=== PATIENT | female | born 1935 | race Caucasian/White ===

== ENCOUNTER 2016-08-17 08:57 | Emergency (ER) | payer MEDICARE, BC ==
[~2016-08-17] VITALS: Ht 162.5 cm; Wt 78.0 kg
[~2016-08-17 08:57] MED LIST: ALPHAGAN-P 0.2%5 ML OPH; ANTIVERT/2525 MG PO; ANTIVERT25 MG PO; ASPIR-LOW81 MG PO; ATENOLOL25 MG PO; ATENOLOL50 M1 PO; AUGMENTIN 875 M1 TAB PO; B-121000 MCG PO; BETIMOL 10 ML10 M1 OPH; BETIMOL5 M1 OP; CIPROFLOXACIN500 MG PO; CLARITIN10 MG PO; CLONIDINE0.1 MG PO; CO Q-1010 MG PO; CORICIDIN 325 M1 TAB PO; DARVOCET N 1001 TAB PO; DIFLUCAN150 MG PO; DIFLUCAN200 MG PO; HYDRALAZINE HYD50 MG PO; LEVOFLOXACIN500 MG PO; LISINOPRIL10 M1 PO; LISINOPRIL20 MG PO; LISINOPRIL40 MG PO; LOPRESSOR25 MG PO; LOSARTAN POTASS25 M1 PO; LUMIGAN 2.5 ML2.5 ML OPH; LUTEIN20 MG PO; MACROBID100 M1 PO; Nizoral 2%15 GM PO; PRAVASTATIN SOD20 MG PO; PREDNISONE10 MG PO; PRESERVISION1 SGL PO; PROVENTIL0.09 MG/AC IH; VENTOLIN H0.09 MG/AC INH; VISION1 TAB PO; XALATAN 0.005%2.5 ML OPH; ZITHROMAX Z PA250 MG PO; ZOFRAN ODT4 MG SL
[2016-08-17 09:10] VITALS: BP 137/67
[2016-08-17 09:43] LABS: BASO # 0.1 10*3/uL (0.0-0.1); BASO % 0.7 % (0.0-1.0); EOS # 0.2 10*3/uL (0.0-0.4); EOS % 2.7 % (1.0-4.0); HEMATOCRIT 47.8 % (37.0-47.0); HEMOGLOBIN 15.5 g/dl (12.0-16.0); LYMPH # 1.2 10*3/uL (1.3-4.4); LYMPH % 16.1 % (27.0-41.0); MEAN CELL VOLUME 98.8 fl (81.0-99.0); MEAN CORPUSCULAR HGB CONC 32.4 g/dl (33.0-37.0); MEAN PLATELET VOLUME 10.8 fl (9.6-12.3); MONO # 0.5 10*3/uL (0.1-1.0); MONO % 6.2 % (3.0-9.0); NEUT # 5.7 10*3/uL (2.3-7.9); PLATELET COUNT AUTOMATED 184 10*3/uL (130-400); RED BLOOD COUNT 4.84 10*6/uL (4.10-5.10); RED CELL DISTRI WIDTH 13.2 % (0-14.5); WHITE BLOOD COUNT 7.7 10*3/uL (4.8-10.8)
[2016-08-17 09:51] LABS: PROTHROMBIN TIME 10.3 SECONDS (9.0-12.4)
[2016-08-17 09:58] LABS: ALBUMIN 3.6 gm/dl (3.1-4.5); ALKALINE PHOSPHATASE 97 U/L (45-117); BILIRUBIN, TOTAL 0.5 mg/dl (0.2-1.0); BUN 22 mg/dl (7-24); C-REACTIVE PROTEIN 0.88 MG/DL (0-0.3); CARBON DIOXIDE 29 mmol/L (21-32); CHLORIDE 104 mmol/L (98-107); CKMB 0.7 ng/ml (0.5-3.6); CPK 38 U/L (26-192); EST GLOM FILT AFRICAN AMERICAN > 60 ml/min; GLUCOSE 108 mg/dL (65-99); MAGNESIUM 2.3 mg/dL (1.5-2.1); POTASSIUM 4.4 mmol/L (3.5-5.1); SGOT/AST 13 IU/L (3-35); SGPT/ALT 14 U/L (12-78); SODIUM 140 mmol/L (136-145); TOTAL PROTEIN 7.7 gm/dL (6.4-8.2); TROPONIN I < 0.015 ng/ml (<0.045)
== END 2016-08-17 10:53 | disposition home or self-care (01) ==
LOC: ED 08:57
PROVIDERS: Emergency Medicine
DX: R00.1 Bradycardia, unspecified (principal); R60.9 Edema, unspecified; F17.200 Nicotine dependence, unspecified, uncomplicated; Z79.82 Long term (current) use of aspirin

== ENCOUNTER → 2016-11-06 | Outpatient (CLI) | payer MEDICARE, BC | END | disposition home or self-care (01) | LOC: MAMMO 12:29 | DX: Z12.31 Encounter for screening mammogram for malignant neoplasm of breast (principal) ==

== ENCOUNTER → 2017-04-26 | Outpatient (CLI) | payer MEDICARE, BC | END | disposition home or self-care (01) | LOC: RAD 10:29 | DX: Z13.820 Encounter for screening for osteoporosis (principal); M81.0 Age-related osteoporosis without current pathological fracture; N95.9 Unspecified menopausal and perimenopausal disorder ==

== ENCOUNTER 2017-07-18 11:28 | Emergency (ER) | payer MEDICARE, BC ==
[~2017-07-18] VITALS: Ht 162.5 cm; Wt 82.6 kg
[2017-07-18 11:33] VITALS: BP 120/53
[2017-07-18 11:55] LABS: BILIRUBIN NEGATIVE (NEGATIVE); BLOOD NEGATIVE (NEGATIVE); CLARITY CLEAR (CLEAR); COLOR YELLOW (YELLOW); GLUCOSE NEGATIVE (NEGATIVE); KETONE NEGATIVE (NEGATIVE); LEUKO ESTERASE NEGATIVE (NEGATIVE); NITRITE NEGATIVE (NEGATIVE); SPECIFIC GRAVITY <= 1.005 (1.005-1.030); UROBILINOGEN 0.2 E.U./dl (0.2-1.0)
== END 2017-07-18 12:23 | disposition home or self-care (01) ==
LOC: ED 11:28
PROVIDERS: Emergency Medicine
DX: M54.5 Low back pain (principal); I10 Essential (primary) hypertension; R06.02 Shortness of breath; Z79.82 Long term (current) use of aspirin

== ENCOUNTER 2018-10-05 10:34 | Emergency (ER) | payer MEDICARE, OTHER ==
[~2018-10-05] VITALS: Ht 162.5 cm; Wt 83.5 kg
[~2018-10-05 10:34] MED LIST changes: +ERGOCALCIFEROL1 GM PO; +LASIX20 MG PO; +Meclizine25 MG PO; +NORVASC10 MG PO; +PREDNISONE50 MG PO; +ZANAFLEX2 M1 PO
[2018-10-05 15:03] VITALS: BP 140/58
== END 2018-10-05 16:08 | disposition home or self-care (01) ==
LOC: ED 10:34
DX: I10 Essential (primary) hypertension (principal); H53.8 Other visual disturbances; F17.200 Nicotine dependence, unspecified, uncomplicated; Z88.1 Allergy status to other antibiotic agents; Z79.899 Other long term (current) drug therapy; Z79.82 Long term (current) use of aspirin

== ENCOUNTER 2018-10-07 13:56 | Inpatient (IN) | payer MEDICARE, OTHER ==
[~2018-10-07] VITALS: Ht 162.6 cm; Wt 83.5 kg
[2018-10-07] VITALS (13 sets, daily range): BP systolic 108–221; BP diastolic 45–116
--- NOTE | ~2018-10-07 | EKG ---
[place], [place] ELECTROCARDIOGRAM REPORT NAME: ZAFAR FORMAN UNIT #: [id number] ROOM: 505 DOCTOR: RAJ DRAFT REPORT BIRTHDATE: [address] [facility] Test Date: 2018-10-07 Test Time: 15:09:20 Pat Name: ZAFAR FORMAN Department: Room: 505 Gender: F Elevator Repairer Apprentice: : 1935 Requested By: ETELVINA LAL PA-C Order Number: [id number] Reading MD: Aurelia Pollack Measurements Intervals [place] Rate: 61 P: -20 IA: 208 QRS: -34 QRSD: 99 T: 75 QT: 444 QTc: 448 Interpretive Statements Sinus rhythm Left axis deviation Abnormal R-wave progression, late transition Borderline repolarization abnormality Compared to ECG 08/10/2018 14:55:02 Possible ischemia no longer present Electronically Signed On 10-09-2018 9:44:05 PDT by Aurelia Pollack CM:EKGRPT:ELECTROCARDIOGRAM REPORT [id number] ETELVINA LAL PA-C EPIPHANY DRAFT REPORT ETELVINA LAL PA-C
--- NOTE | 2018-10-07 14:32 | NUR ---
MANUAL B/P RIGHT ARM IS 150/82. I SPOKE WITH PA. LAL AND THE CATAPRESS IS BEING HELD AT THIS TIME
[2018-10-07 15:22] LABS: BASO # 0.1 10*3/uL (0.0-0.1); BASO % 0.6 % (0.0-1.0); EOS # 0.5 10*3/uL (0.0-0.4); EOS % 5.4 % (1.0-4.0); HEMATOCRIT 48.6 % (37.0-47.0); HEMOGLOBIN 15.4 g/dl (12.0-16.0); LYMPH # 1.5 10*3/uL (1.3-4.4); LYMPH % 18.1 % (27.0-41.0); MEAN CELL VOLUME 100.4 fl (81.0-99.0); MEAN CORPUSCULAR HGB 31.8 pg (27.0-31.0); MEAN CORPUSCULAR HGB CONC 31.7 g/dl (33.0-37.0); MEAN PLATELET VOLUME 10.8 fl (9.6-12.3); MONO # 0.6 10*3/uL (0.1-1.0); MONO % 6.7 % (3.0-9.0); NEUT # 5.8 10*3/uL (2.3-7.9); NEUT % 68.8 % (47.0-73.0); PLATELET COUNT AUTOMATED 154 10*3/uL (130-400); RED BLOOD COUNT 4.84 10*6/uL (4.10-5.10); RED CELL DISTRI WIDTH 13.1 % (0-14.5); WHITE BLOOD COUNT 8.4 10*3/uL (4.8-10.8)
[2018-10-07 15:39] LABS: ALBUMIN 3.5 gm/dl (3.1-4.5); ALKALINE PHOSPHATASE 104 U/L (45-117); BUN 22 mg/dl (7-24); CHLORIDE 103 mmol/L (98-107); CREATININE 1.14 mg/dL (0.55-1.02); POTASSIUM 4.2 mmol/L (3.5-5.1); SGOT/AST 14 IU/L (3-35); SGPT/ALT 16 U/L (12-78); SODIUM 139 mmol/L (136-145); TOTAL PROTEIN 7.4 gm/dL (6.4-8.2)
[2018-10-07 15:43] LABS: TROPONIN I < 0.015 ng/ml (<0.045)
[2018-10-07 15:52] LABS: INTERNATIONAL NORM RATIO 0.9 (2.0-3.5)
[2018-10-07 16:49] LABS: BILIRUBIN NEGATIVE (NEGATIVE); BLOOD NEGATIVE (NEGATIVE); CLARITY CLEAR (CLEAR); COLOR YELLOW (YELLOW); GLUCOSE NEGATIVE (NEGATIVE); KETONE NEGATIVE (NEGATIVE); LEUKO ESTERASE NEGATIVE (NEGATIVE); NITRITE NEGATIVE (NEGATIVE); PH 5.5 (5.0-9.0); SPECIFIC GRAVITY <= 1.005 (1.005-1.030); UROBILINOGEN 0.2 E.U./dl (0.2-1.0)
[2018-10-07 17:00] LABS: EPITHELIAL CELLS 0-2; WBC 0-2 wbc/hpf (0-5)
--- NOTE | 2018-10-07 17:22 | NUR ---
A DINNER TRAY WAS ORDERED FOR THE PATIENT
[2018-10-07] MEDS ORDERED: AMLODIPINE BESY10 MG PO (17:48)
--- NOTE | 2018-10-07 19:18 | NUR ---
THE RECIEVING NURSE IS IN REPORT AND CAN NOT TAKE REPORT FROM ME AT THIS TIME
--- NOTE | 2018-10-07 20:00 | NUR ---
A 83, admitted to , under the services of ALVARADO Robert DO with a diagnosis of HYPERTENSIVEURGENCY. Chief complaint is HTN. Patient arrived via bed from ER. Monitor applied. Initial assessment completed. Vital signs taken and recorded. ALVARADO ROBERT DO notified of admission to the unit. Orders received. See assessment for past medical history, medications and allergies. Patient and/or family oriented to unit. [facility] visitation policy reviewed. Clothing/patient valuable form completed. MITZI DE LA CRUZ
--- NOTE | 2018-10-07 20:00 | NUR ---
PATIENT GIVEN OXYGEN, DAUGHTER STATES SHES SUPPOSED TO WEAR 2L AT ALL TIMES.
[2018-10-07] MEDS ORDERED: OXYGEN NAS (20:14)
[2018-10-08] VITALS: BP 144/54
[2018-10-08 07:46] LABS: BASO # 0.1 10*3/uL (0.0-0.1); BASO % 0.6 % (0.0-1.0); EOS # 0.4 10*3/uL (0.0-0.4); EOS % 5.3 % (1.0-4.0); HEMATOCRIT 49.1 % (37.0-47.0); HEMOGLOBIN 15.4 g/dl (12.0-16.0); LYMPH # 1.2 10*3/uL (1.3-4.4); LYMPH % 14.9 % (27.0-41.0); MEAN CELL VOLUME 99.8 fl (81.0-99.0); MEAN CORPUSCULAR HGB 31.3 pg (27.0-31.0); MEAN CORPUSCULAR HGB CONC 31.4 g/dl (33.0-37.0); MEAN PLATELET VOLUME 11.2 fl (9.6-12.3); MONO # 0.4 10*3/uL (0.1-1.0); MONO % 5.2 % (3.0-9.0); NEUT # 5.7 10*3/uL (2.3-7.9); NEUT % 73.6 % (47.0-73.0); PLATELET COUNT AUTOMATED 143 10*3/uL (130-400); RED BLOOD COUNT 4.92 10*6/uL (4.10-5.10); RED CELL DISTRI WIDTH 13.1 % (0-14.5); WHITE BLOOD COUNT 7.7 10*3/uL (4.8-10.8)
[2018-10-08 07:52] LABS: ALBUMIN 3.5 gm/dl (3.1-4.5); ALKALINE PHOSPHATASE 108 U/L (45-117); BUN 22 mg/dl (7-24); CHLORIDE 104 mmol/L (98-107); CREATININE 0.97 mg/dL (0.55-1.02); PHOSPHOROUS 3.7 mg/dL (2.5-4.9); POTASSIUM 4.3 mmol/L (3.5-5.1); SGOT/AST 15 IU/L (3-35); SGPT/ALT 14 U/L (12-78); SODIUM 138 mmol/L (136-145); TOTAL PROTEIN 7.3 gm/dL (6.4-8.2)
[2018-10-08 08:00] VITALS: BP 128/64
[2018-10-08 12:00] VITALS: BP 111/55
[2018-10-08 16:00] VITALS: BP 124/103; BP 128/64
[2018-10-08 20:00] VITALS: BP 142/92
--- NOTE | 2018-10-08 22:24 | NUR ---
IN TO ROOM, PT SITTING UP IN CHAIR. NO S/S OF DISTRESS OR SOB NOTED ON ASSESSMENT. NO STATED COMPLAINTS AT THIS TIME. PT STATES SHE IS GOING FOR A WALK IN HALLS. STEADY GAIT ASSESSED. WILL CONTINUE TO MONITOR.
[2018-10-09] VITALS: BP 134/55
[2018-10-09 08:00] VITALS: BP 125/66
--- NOTE | 2018-10-09 12:59 | NUR ---
Discharge instructions reviewed with patient/family. Patient receptive and verbalizes understanding. Follow-up care arranged. Written instructions given to patient/family. MABLE CARDOSO
== END 2018-10-09 12:59 | disposition home or self-care (01) | DRG 304 ==
LOC: ED 13:56 → EDHOLD 17:20 → 5E 19:17
PROVIDERS: Internal Medicine; Physician Assistant; ADMIT Internal Medicine
DX: I16.0 Hypertensive urgency (principal); N17.0 Acute kidney failure with tubular necrosis; I50.32 Chronic diastolic (congestive) heart failure; J96.11 Chronic respiratory failure with hypoxia; J44.9 Chronic obstructive pulmonary disease, unspecified; E83.41 Hypermagnesemia; I11.0 Hypertensive heart disease with heart failure; F17.210 Nicotine dependence, cigarettes, uncomplicated; Z83.3 Family history of diabetes mellitus; Z82.49 Family history of ischemic heart disease and other diseases of the circulatory system; Z88.1 Allergy status to other antibiotic agents; Z84.89 Family history of other specified conditions; Z79.82 Long term (current) use of aspirin; Z79.899 Other long term (current) drug therapy

== ENCOUNTER 2018-11-09 13:09 | Emergency (ER) | payer MEDICARE, OTHER ==
[~2018-11-09] VITALS: Ht 152.4 cm; Wt 83.0 kg
[~2018-11-09 13:09] MED LIST changes: +AMLODIPINE BESY10 MG PO; +OXYGEN NAS
[2018-11-09 13:11] VITALS: BP 158/98
[2018-11-09] MEDS ORDERED: CEPHALEXIN500 M1 PO (13:51)
== END 2018-11-09 14:00 | disposition home or self-care (01) ==
LOC: ED 13:09
DX: S61.012A Laceration without foreign body of left thumb without damage to nail, initial encounter (principal); S61.217A Laceration without foreign body of left little finger without damage to nail, initial encounter; F17.200 Nicotine dependence, unspecified, uncomplicated; Z79.899 Other long term (current) drug therapy; Z79.82 Long term (current) use of aspirin; Z88.1 Allergy status to other antibiotic agents; W26.0XXA Contact with knife, initial encounter; Y93.89 Activity, other specified; Y92.89 Other specified places as the place of occurrence of the external cause; Y99.8 Other external cause status

== ENCOUNTER 2019-02-23 09:18 | Inpatient (IN) | payer MEDICARE, OTHER ==
[~2019-02-23] VITALS: Ht 162.6 cm; Wt 80.9 kg
[~2019-02-23 09:18] MED LIST changes: +CEPHALEXIN500 M1 PO
[2019-02-23 09:22] VITALS: BP 192/88
[2019-02-23 10:03] LABS: BASO % 0.3 % (0.0-1.0); EOS # 0.1 10*3/uL (0.0-0.4); EOS % 0.4 % (1.0-4.0); HEMATOCRIT 45.7 % (37.0-47.0); HEMOGLOBIN 14.5 g/dl (12.0-16.0); LYMPH # 1.8 10*3/uL (1.3-4.4); LYMPH % 14.5 % (27.0-41.0); MEAN CELL VOLUME 99.6 fl (81.0-99.0); MEAN CORPUSCULAR HGB 31.6 pg (27.0-31.0); MEAN CORPUSCULAR HGB CONC 31.7 g/dl (33.0-37.0); MONO # 0.7 10*3/uL (0.1-1.0); MONO % 5.9 % (3.0-9.0); NEUT # 9.6 10*3/uL (2.3-7.9); NEUT % 78.3 % (47.0-73.0); PLATELET COUNT AUTOMATED 198 10*3/uL (130-400); RED BLOOD COUNT 4.59 10*6/uL (4.10-5.10); RED CELL DISTRI WIDTH 12.6 % (0-14.5); WHITE BLOOD COUNT 12.3 10*3/uL (4.8-10.8)
[2019-02-23 10:15] LABS: ACT PARTIAL THROMBO TIME 24.9 SECONDS (20.0-32.1); INTERNATIONAL NORM RATIO 0.9 (2.0-3.5)
[2019-02-23 10:22] LABS: ALBUMIN 3.7 gm/dl (3.1-4.5); ALKALINE PHOSPHATASE 114 U/L (45-117); BUN 41 mg/dl (7-24); CHLORIDE 104 mmol/L (98-107); LIPASE 241 U/L (73-393); POTASSIUM 4.4 mmol/L (3.5-5.1); SGOT/AST 20 IU/L (3-35); SGPT/ALT 26 U/L (12-78); SODIUM 136 mmol/L (136-145)
[2019-02-23 10:24] LABS: TROPONIN I < 0.015 ng/ml (<0.045)
[2019-02-23 10:40] LABS: BILIRUBIN NEGATIVE (NEGATIVE); BLOOD NEGATIVE (NEGATIVE); CLARITY CLEAR (CLEAR); COLOR YELLOW (YELLOW); GLUCOSE NEGATIVE (NEGATIVE); KETONE NEGATIVE (NEGATIVE); LEUKO ESTERASE NEGATIVE (NEGATIVE); NITRITE NEGATIVE (NEGATIVE); PH 6.5 (5.0-9.0); UROBILINOGEN 0.2 E.U./dl (0.2-1.0)
[2019-02-23 10:52] VITALS: BP 180/74
[2019-02-23 10:56] LABS: EPITHELIAL CELLS 0-2; RBC 0-2 rbc/hpf (0-2); WBC 0-2 wbc/hpf (0-5)
--- NOTE | 2019-02-23 11:13 | NUR ---
PT REMAINS W/O ACUTE DISTRESS NOTED AWAITING ALL RESULTS FOR ADDITIONAL PLAN OF CARE,FAMILY @ BEDSIDE AND CALL LIGHT WITHIN REACH.
[2019-02-23] MEDS ORDERED: NICODERM CQ1 EAC1 T (12:06)
[2019-02-23 12:34] VITALS: BP 175/75
[2019-02-23 12:52] VITALS: BP 180/96
--- NOTE | 2019-02-23 12:52 | NUR ---
A 83, admitted to 4E, under the services of ALVARADO Robert DO with a diagnosis of [id number], HYPERTENSIVE URGENCY. Chief complaint is ELEVATED BP. Patient arrived via stretcher from ER. Monitor applied. Initial assessment completed. Vital signs taken and recorded. ALVARADO ROBERT DO notified of admission to the unit. Orders received. See assessment for past medical history, medications and allergies. Patient and/or family oriented to unit. [facility] visitation policy reviewed. Clothing/patient valuable form completed. SREEDHAR POOLE
[2019-02-23] MEDS ORDERED: LOSARTAN POTASS50 M1 PO ×2 (13:13→14:15)
[2019-02-23] MEDS ORDERED: MECLIZINE HYD12.5 MG PO (13:22)
[2019-02-23] MEDS ORDERED: FISH OIL PO (13:24)
[2019-02-23] MEDS ORDERED: PRESERVISION A1 EAC1 PO (13:25)
[2019-02-23 16:00] VITALS: BP 148/59
--- NOTE | 2019-02-23 19:15 | NUR ---
Patient resting quietly with no c/o discomfort. Respirations easy and regular. Vital signs stable. No overt distress. CALL LIGHT WITHIN REACH TONY CHANG
[2019-02-23 20:00] VITALS: BP 154/67
--- NOTE | 2019-02-23 21:07 | NUR ---
HOME MED LOPRESSOR TIMES CHANGE PER PATIENT REQUEST/HOW THEY TAKE AT HOME
[2019-02-24] VITALS (8 sets, daily range): BP systolic 130–198; BP diastolic 42–102
--- NOTE | 2019-02-24 02:23 | NUR ---
PRN HYDRALAZINE GIVEN AT 0040 FOR BLOOD PRESSURE OF 198/102, PATIENT TOLERATED WELL. CALL LIGHT IS WITHIN REACH, WILL REASSESS.
--- NOTE | 2019-02-24 02:24 | NUR ---
CONTACTED DR. HERNANDEZ IN REGARDS TO BLOOD PRESSURE OF 198/98 AFTER PRN HYDRALAZINE. NO DIRECTION ON PRN ORDER JUST SAYS NOW. WILL TAKE A LOOK.
--- NOTE | 2019-02-24 03:07 | NUR ---
PRN HYDRALIZINE GIVEN AT THIS TIME PER DR. COUGHLIN DIRECTION FOR BP OF 188/90. CALL LIGHT IS WITHIN REACH, WILL MONITOR EFFECT.
[2019-02-24 06:45] LABS: BASO # 0.1 10*3/uL (0.0-0.1); BASO % 0.7 % (0.0-1.0); EOS # 0.4 10*3/uL (0.0-0.4); EOS % 3.6 % (1.0-4.0); HEMATOCRIT 43.9 % (37.0-47.0); HEMOGLOBIN 13.7 g/dl (12.0-16.0); LYMPH # 1.4 10*3/uL (1.3-4.4); LYMPH % 13.1 % (27.0-41.0); MEAN CELL VOLUME 99.1 fl (81.0-99.0); MEAN CORPUSCULAR HGB 30.9 pg (27.0-31.0); MEAN CORPUSCULAR HGB CONC 31.2 g/dl (33.0-37.0); MEAN PLATELET VOLUME 11.6 fl (9.6-12.3); MONO # 0.6 10*3/uL (0.1-1.0); PLATELET COUNT AUTOMATED 172 10*3/uL (130-400); RED BLOOD COUNT 4.43 10*6/uL (4.10-5.10); RED CELL DISTRI WIDTH 12.9 % (0-14.5); WHITE BLOOD COUNT 10.5 10*3/uL (4.8-10.8)
[2019-02-24 06:52] LABS: CHLORIDE 105 mmol/L (98-107); CREATININE 0.94 mg/dL (0.55-1.02); PHOSPHOROUS 2.9 mg/dL (2.5-4.9); POTASSIUM 4.2 mmol/L (3.5-5.1); SODIUM 138 mmol/L (136-145)
--- NOTE | 2019-02-24 07:00 | NUR ---
ARRIVED ON SHIFT, PATIENT SITTING ON SIDE OF BED, INTRODUCED TO PATIENT, WHITEBOARD UPDATED NO NEEDS VOICED AT THIS TIME.
[2019-02-24 07:01] LABS: BUN 30 mg/dl (7-24)
--- NOTE | 2019-02-24 07:55 | NUR ---
Shift chart check completed.
[2019-02-24 08:00] LABS: VITAMIN D, 25-HYDROXY 55.4 ng/mL (30-100)
--- NOTE | 2019-02-24 23:40 | NUR ---
DR. DAWSON NOTIFIED OF MANUAL BP OF 160/90.
[2019-02-25] VITALS (10 sets, daily range): BP systolic 140–190; BP diastolic 60–94
--- NOTE | 2019-02-25 00:42 | NUR ---
LOPRESSOR 1.25 GIVEN IV PER ONE TIME ORDER FOR ELEVATED BP.
--- NOTE | 2019-02-25 00:44 | NUR ---
RECHECK ON BP 170/80. DR DAWSON NOTIFIED. ORDER TO RECHECK IN 1 HR.
--- NOTE | 2019-02-25 03:10 | NUR ---
DR. DAWSON CALLED AND DUE TO PATIENT C/O SHORTNESS OF BREATH,COUGH, WHEEZES AND RHONCHI.
--- NOTE | 2019-02-25 03:30 | NUR ---
TO FLOOR AND SAW PATIENT.
--- NOTE | 2019-02-25 03:55 | NUR ---
HYDRALAZINE 5 MG IV GIVEN PER ORDER. FOR BPOF 190/90.
--- NOTE | 2019-02-25 04:43 | NUR ---
RECHECK ON BP 170/80. DR DAWSON WANTS BLOOD PRESSURE TO BE RECHECKED IN 1 HOUR,
--- NOTE | 2019-02-25 04:58 | NUR ---
TO FLOOR AND SAW PATIENT . ORDERS PLACED.
--- NOTE | 2019-02-25 06:30 | NUR ---
DR. DAWSON NOTIFIED OF BLOOD PRESSURE OF 154/82 MANUAL.
[2019-02-25 06:45] LABS: BASO # 0.1 10*3/uL (0.0-0.1); BASO % 0.6 % (0.0-1.0); EOS # 0.5 10*3/uL (0.0-0.4); EOS % 5.7 % (1.0-4.0); HEMATOCRIT 42.3 % (37.0-47.0); HEMOGLOBIN 13.3 g/dl (12.0-16.0); LYMPH # 1.2 10*3/uL (1.3-4.4); LYMPH % 12.4 % (27.0-41.0); MEAN CELL VOLUME 99.5 fl (81.0-99.0); MEAN CORPUSCULAR HGB 31.3 pg (27.0-31.0); MEAN CORPUSCULAR HGB CONC 31.4 g/dl (33.0-37.0); MEAN PLATELET VOLUME 11.5 fl (9.6-12.3); MONO # 0.6 10*3/uL (0.1-1.0); MONO % 6.3 % (3.0-9.0); NEUT # 6.9 10*3/uL (2.3-7.9); NEUT % 74.7 % (47.0-73.0); PLATELET COUNT AUTOMATED 156 10*3/uL (130-400); RED BLOOD COUNT 4.25 10*6/uL (4.10-5.10); RED CELL DISTRI WIDTH 13.1 % (0-14.5); WHITE BLOOD COUNT 9.3 10*3/uL (4.8-10.8)
[2019-02-25 07:10] LABS: ALBUMIN 3.1 gm/dl (3.1-4.5); ALKALINE PHOSPHATASE 105 U/L (45-117); BUN 26 mg/dl (7-24); CHLORIDE 107 mmol/L (98-107); CREATININE 1.01 mg/dL (0.55-1.02); POTASSIUM 4.1 mmol/L (3.5-5.1); SGOT/AST 21 IU/L (3-35); SGPT/ALT 34 U/L (12-78); SODIUM 138 mmol/L (136-145); TOTAL PROTEIN 6.7 gm/dL (6.4-8.2)
--- NOTE | 2019-02-25 07:10 | NUR ---
ARRIVED ON SHIFT, INTRODUCED TO PATIENT, ASSISTED PATIENT TO BATHROOM, UNSTEADY GAIT, WHITE BOARD UPDATED, NO OTHER NEEDS VOICED AT THIS TIME.
--- NOTE | 2019-02-25 07:39 | NUR ---
Shift chart check completed.
--- NOTE | 2019-02-25 08:13 | NUR ---
PATIENT C/O HEADACHE MEDICATED WITH TYLENOL 650MG ORDERED PRN.
--- NOTE | 2019-02-25 09:10 | NUR ---
PATIENT REPORTS POSITIVE EFFECT FROM TYLENOL GIVEN X 1 HOUR AGO. DENIES HEADACHE AT THIS TIME.
[2019-02-26] VITALS (10 sets, daily range): BP systolic 124–188; BP diastolic 57–92
--- NOTE | 2019-02-26 01:32 | NUR ---
BP 165/70. APRESOLINE PRN GIVEN ORDERED. SEE MAY. WILL MONITOR.
--- NOTE | 2019-02-26 04:58 | NUR ---
24hr chart check completed
[2019-02-26 06:57] LABS: BUN 25 mg/dl (7-24); CHLORIDE 106 mmol/L (98-107); CREATININE 1.03 mg/dL (0.55-1.02); POTASSIUM 4.1 mmol/L (3.5-5.1); SODIUM 136 mmol/L (136-145)
--- NOTE | 2019-02-26 13:12 | NUR ---
Patient resting quietly with no c/o discomfort. Respirations easy and regular. Vital signs stable. No overt distress. CEDRIC ALVAREZ
--- NOTE | 2019-02-26 15:45 | NUR ---
RESTING IN BED. NO C/O AT THIS TIME. CALL LIGHT IN REACH. SEE SHIFT ASSESSMENT.
--- NOTE | 2019-02-26 16:20 | NUR ---
MEDICATED WITH APRESOLINE IV PER PRN ORDER, SEE EMAR. BP 186/92 MANUALLY. TOLERATED ROUTINE MED ALSO. CALL LIGHT IN REACH. WILL CON'T TO MONITOR.
--- NOTE | 2019-02-26 17:14 | NUR ---
CALLED DR. HOOD MADE AWARE BP AT 16:20 AND BP NOW IS 188/82. MADE AWARE MEDICATIONS GIVEN. DENIES ANY PAIN. CALL LIGHT IN REACH.
--- NOTE | 2019-02-26 20:23 | NUR ---
SPOKE TO REGARDING ORDER FOR IV HYDRALAZINE WHICH IS ORDERED 5 MG IV HYDRALAZINE NOW PRN FOR SYSTOLIC BP >160. PER , CHANGE ORDER TO 5 MG IV HYDRALAZINE Q4H PRN FOR SYSTOLIC BP >160.
--- NOTE | 2019-02-26 20:41 | NUR ---
IV HYDRALAZINE ADMINISTERED AT THIS TIME PER PRN ORDER FOR ELEVATED BP 184/80 MANUALLY. PO DULCOLAX ALSO ADMINISTERED FOR C/O CONSTIPATION. PT CLAIMS LAST BM 02/24. WILL MONITOR EFFECTIVENESS OF MEDICATIONS. PT DENIES ANY OTHER NEEDS AT THIS TIME. WILL MONITOR. CALL LIGHT IN REACH.
--- NOTE | 2019-02-26 21:23 | NUR ---
EARLIER HYDRALAZINE EFFECTIVE. PT'S BP NOW 152/64 MANUALLY. WILL MONITOR. CALL LIGHT IN REACH. PT DENIES ANY OTHER NEEDS AT THIS TIME.
--- NOTE | 2019-02-27 02:49 | NUR ---
PT ASLEEP IN BED. RESPIRATIONS EASY. NO S/S OF DISTRESS NOTED. WILL MONITOR. CALL LIGHT IN REACH.
[2019-02-27 04:45] VITALS: BP 188/74
--- NOTE | 2019-02-27 04:51 | NUR ---
PT CALLED OUT REQUESTING THAT HER BP BE CHECKED SHE STATES SHE IS HAVING A HEADACHE. BP ELEVATED AT 188/74 MANUALLY. IV HYDRALAZINE ADMINISTERED PER PRN ORDER FOR SBP >160. WILL MONITOR EFFECTIVENESS. CALL LIGHT IN REACH.
[2019-02-27 07:30] VITALS: BP 150/58
--- NOTE | 2019-02-27 07:30 | NUR ---
ASSESSMENT COMPLETED AND DOCUMENTED. PT SITTING AT BEDSIDE. NO COMPLAINTS AT THIS TIME. CALL LIGHT WITHIN REACH. PIPPA RICHTER SPNRCC
--- NOTE | 2019-02-27 07:40 | NUR ---
PT ASSISTED TO BATHROOM AND BACK TO BED WITH ONE ASSIST. RESP-EASY AND REGULAR. NO C/O AT THIS TIME. CALL LIGHT IN REACH. STUDENT NURSE WITH PT TODAY., CALL LIGHT IN REACH.
--- NOTE | 2019-02-27 09:00 | NUR ---
Sheep Farm Manager in to talk to patient. Patient states lives at home alone with her family checking in on her. There are 0 steps in the home. Physician: Tejas Holman [facility]: [facility] Home health services: none Patient's level of ADLs: INDEPENDENT Patient has working utilities: yes DME: O2 @ 2L nc at HS, portable O2 tanks, O2 supplier unknown Follow-up physician's appointment after d/c: will be made by the hospitalist nurse director upon discharge Does patient want to access PORTAL?: no Discharge plan discussed with patient. She lives at home alone with her family checking in on her. She is ambulating in her room. She is independent in her ADLs and ambulation. Discussed home health care services and she denies any home needs at this time. When medically stable she will be discharged to home. Her ekqppprl-ag-gxsp will provide transportation on discharge. Cat scan shows left pneumonia. She is receiving Zithromax and Rocephin. Blood pressure 150/58. JAVAN LEY
--- NOTE | 2019-02-27 09:30 | NUR ---
ASSESSMENT AND DOCUMENTATION COMPLETED. PT UP TO THE CHAIR FOR BATH. NO COMPLAINTS AT THIS TIME. WILL CONTINUE TO MONITOR. PIPPA RICHTER SPRAVICC
[2019-02-27 12:00] VITALS: BP 120/62
--- NOTE | 2019-02-27 13:38 | NUR ---
ASSESMENT COMPLETED AND DOCUMENTED. PT RESTING IN BED WITH NO COMPLAINTS. CALL LIGHT WITH IN REACH. REPORT GIVEN TO LE WALKER. PIPPA RICHTER SPRAVICC
--- NOTE | 2019-02-27 14:20 | NUR ---
PT RESTING IN BED. PER DR. KAM BP TAKEN WAS 122/[address] GUERRA RESIDENT AND MADE AWARE.
[2019-02-27 14:23] VITALS: BP 122/44
[2019-02-27] MEDS ORDERED: METOPROLOL TART50 M1 PO (14:53)
[2019-02-27] MEDS ORDERED: AMLODIPINE BESYL5 MG PO (14:53)
[2019-02-27] MEDS ORDERED: LOSARTAN POTAS100 M1 PO (14:53)
[2019-02-27] MEDS ORDERED: ZITHROMAX250 MG PO (14:54)
[2019-02-27] MEDS ORDERED: PREDNISONE10 MG PO (14:54)
--- NOTE | 2019-02-27 15:39 | NUR ---
Discharge instructions reviewed with patient/family. Patient receptive and verbalizes understanding. Follow-up care arranged. Written instructions given to patient/family. [place] REMOVED 2X2 APPLIED. DENISE HERNADEZ
--- NOTE | 2019-02-27 15:48 | NUR ---
PT ESCORTED VIA WHEELCHAIR FOR DISCHARGE. VERBALIZED UNDERSTANDING OF INSTRUCTIONS.
== END 2019-02-27 15:39 | disposition home or self-care (01) | DRG 177 ==
LOC: ED 09:18 → 4E 12:12 → EDHOLD 12:12 → 4E 12:23 → 5E 02-26 16:02 → 4E 02-26 16:02
PROVIDERS: Hospitalist; Internal Medicine; Physician Assistant; ADMIT Internal Medicine
DX: J15.6 Pneumonia due to other Gram-negative bacteria (principal); N17.0 Acute kidney failure with tubular necrosis; I16.1 Hypertensive emergency; J44.0 Chronic obstructive pulmonary disease with (acute) lower respiratory infection; J96.10 Chronic respiratory failure, unspecified whether with hypoxia or hypercapnia; I50.32 Chronic diastolic (congestive) heart failure; I13.0 Hypertensive heart and chronic kidney disease with heart failure and stage 1 through stage 4 chronic kidney disease, or unspecified chronic kidney disease; N18.3 Chronic kidney disease, stage 3 (moderate); R80.9 Proteinuria, unspecified; R00.1 Bradycardia, unspecified; E66.9 Obesity, unspecified; F17.210 Nicotine dependence, cigarettes, uncomplicated; R73.9 Hyperglycemia, unspecified; Z68.30 Body mass index [BMI] 30.0-30.9, adult; Z71.6 Tobacco abuse counseling; Z88.1 Allergy status to other antibiotic agents; Z82.49 Family history of ischemic heart disease and other diseases of the circulatory system; Z83.3 Family history of diabetes mellitus; Z91.013 Allergy to seafood; Z79.82 Long term (current) use of aspirin; Z79.899 Other long term (current) drug therapy

== ENCOUNTER 2019-03-03 15:58 | Emergency (ER) | payer MEDICARE, OTHER ==
[~2019-03-03] VITALS: Ht 162.5 cm; Wt 81.2 kg
--- NOTE | ~2019-03-03 | EKG ---
[place], [place] ELECTROCARDIOGRAM REPORT NAME: ZAFAR FORMAN UNIT #: [id number] ROOM: DOCTOR: EPIPHANY DRAFT REPORT BIRTHDATE: [birth year] [facility] Test Date: 2019-03-03 Test Time: 16:05:41 Pat Name: ZAFAR FORMAN Department: Room: Gender: F Batch Freezer: : 1935 Requested By: JOSE RAFAEL DURAN Order Number: [id number] Reading MD: Jitendra Suggs MD Measurements Intervals [place] Rate: 70 P: 28 AL: 166 QRS: -17 QRSD: 104 T: 78 QT: 400 QTc: 432 Interpretive Statements Sinus rhythm Nonspecific IVCD Nonspecific T wave changes Compared to ECG 02/23/2019 09:55:45 No significant changes Electronically Signed On 03-04-2019 6:02:16 PST by Jitendra Suggs MD CM:EKGRPT:ELECTROCARDIOGRAM REPORT [id number] JOSE RAFAEL ANTHONY DRAFT REPORT JOSE RAFAEL DURAN M.D.
[~2019-03-03 15:58] MED LIST changes: +AMLODIPINE BESYL5 MG PO; +FISH OIL PO; +LOSARTAN POTAS100 M1 PO; +LOSARTAN POTASS50 M1 PO; +MECLIZINE HYD12.5 MG PO; +METOPROLOL TART50 M1 PO; +NICODERM CQ1 EAC1 T; +PRESERVISION A1 EAC1 PO; +ZITHROMAX250 MG PO
[2019-03-03 16:21] LABS: BASO # 0.1 10*3/uL (0.0-0.1); BASO % 0.7 % (0.0-1.0); EOS # 0.2 10*3/uL (0.0-0.4); EOS % 1.7 % (1.0-4.0); HEMATOCRIT 42.1 % (37.0-47.0); HEMOGLOBIN 13.4 g/dl (12.0-16.0); LYMPH # 2.1 10*3/uL (1.3-4.4); LYMPH % 14.8 % (27.0-41.0); MEAN CORPUSCULAR HGB 32.1 pg (27.0-31.0); MEAN CORPUSCULAR HGB CONC 31.8 g/dl (33.0-37.0); MEAN PLATELET VOLUME 11.1 fl (9.6-12.3); MONO % 7.2 % (3.0-9.0); NEUT # 10.5 10*3/uL (2.3-7.9); NEUT % 74.7 % (47.0-73.0); PLATELET COUNT AUTOMATED 210 10*3/uL (130-400); RED BLOOD COUNT 4.17 10*6/uL (4.10-5.10); RED CELL DISTRI WIDTH 13.1 % (0-14.5)
[2019-03-03 16:32] LABS: ACT PARTIAL THROMBO TIME 24.8 SECONDS (20.0-32.1); INTERNATIONAL NORM RATIO 0.9 (2.0-3.5)
[2019-03-03 16:37] LABS: ALBUMIN 3.6 gm/dl (3.1-4.5); ALKALINE PHOSPHATASE 120 U/L (45-117); BUN 40 mg/dl (7-24); CHLORIDE 99 mmol/L (98-107); CREATININE 1.28 mg/dL (0.55-1.02); POTASSIUM 4.1 mmol/L (3.5-5.1); SGOT/AST 30 IU/L (3-35); SGPT/ALT 53 U/L (12-78); SODIUM 133 mmol/L (136-145); TOTAL PROTEIN 7.6 gm/dL (6.4-8.2)
[2019-03-03 16:39] LABS: TROPONIN I < 0.015 ng/ml (<0.045)
[2019-03-03 17:30] VITALS: BP 152/52
== END 2019-03-03 17:52 | disposition left against medical advice (07) ==
LOC: ED 15:58
PROVIDERS: Emergency Medicine
DX: R06.02 Shortness of breath (principal); I11.0 Hypertensive heart disease with heart failure; I50.9 Heart failure, unspecified; J44.9 Chronic obstructive pulmonary disease, unspecified; E66.9 Obesity, unspecified; E78.00 Pure hypercholesterolemia, unspecified; F17.210 Nicotine dependence, cigarettes, uncomplicated; Z88.1 Allergy status to other antibiotic agents; Z91.013 Allergy to seafood; Z79.899 Other long term (current) drug therapy; Z79.2 Long term (current) use of antibiotics; Z79.82 Long term (current) use of aspirin; Z68.30 Body mass index [BMI] 30.0-30.9, adult

== ENCOUNTER 2019-04-22 14:44 | Inpatient (IN) | payer MEDICARE, OTHER ==
[~2019-04-22] VITALS: Ht 154.9 cm; Wt 80.0 kg
[2019-04-22 15:00] VITALS: BP 153/79
[2019-04-22 15:23] LABS: HEMATOCRIT 41.8 % (37.0-47.0); HEMOGLOBIN 13.3 g/dl (12.0-16.0); MEAN CELL VOLUME 97.7 fl (81.0-99.0); MEAN CORPUSCULAR HGB 31.1 pg (27.0-31.0); MEAN CORPUSCULAR HGB CONC 31.8 g/dl (33.0-37.0); MEAN PLATELET VOLUME 11.2 fl (9.6-12.3); PLATELET COUNT AUTOMATED 150 10*3/uL (130-400); RED BLOOD COUNT 4.28 10*6/uL (4.10-5.10); WHITE BLOOD COUNT 11.3 10*3/uL (4.8-10.8)
[2019-04-22 15:34] LABS: CREATININE 1.99 mg/dL (0.55-1.02); POTASSIUM 4.8 mmol/L (3.5-5.1)
[2019-04-22 15:47] LABS: BILIRUBIN NEGATIVE (NEGATIVE); BLOOD TRACE-INTACT (NEGATIVE); CLARITY CLEAR (CLEAR); COLOR YELLOW (YELLOW); GLUCOSE NEGATIVE (NEGATIVE); KETONE NEGATIVE (NEGATIVE); SPECIFIC GRAVITY 1.015 (1.005-1.030); UROBILINOGEN 0.2 E.U./dl (0.2-1.0)
[2019-04-22 15:48] LABS: LEUKO ESTERASE NEGATIVE (NEGATIVE); NITRITE NEGATIVE (NEGATIVE)
[2019-04-22 15:51] LABS: BASOPHILS 1 % (0-1); PLATELET SUFFICIENCY NORMAL (NORMAL); TOTAL CELLS COUNTED 100 #CELLS
[2019-04-22 15:53] LABS: RBC 0-2 rbc/hpf (0-2)
[2019-04-22 15:54] LABS: BACTERIA 1+
[2019-04-22 16:00] VITALS: BP 142/64
[2019-04-22 18:18] LABS: URINE CREATININE RANDOM 38.6 mg/dL
[2019-04-22 19:30] VITALS: BP 153/59
[2019-04-22 20:25] VITALS: BP 194/85
--- NOTE | 2019-04-22 20:25 | NUR ---
Time: 2024 A 83 year old FEMALE admitted to 5E under services of ALVARADO ROBERT DO. Pt. arrived via stretcher from ER. Chief complaint: DIFFICULT, AND PAINFUL URINATION. SREEDHAR POOLE
[2019-04-22] MEDS ORDERED: COZAAR100 MG PO (20:54)
[2019-04-22] MEDS ORDERED: ARNUITY ELLIP100 MCG INH (20:55)
[2019-04-22] MEDS ORDERED: ANORO ELLIPTA1 EACH INH (20:57)
[2019-04-23] VITALS: BP 187/68
[2019-04-23 07:04] LABS: BASO # 0.1 10*3/uL (0.0-0.1); BASO % 0.6 % (0.0-1.0); EOS # 0.5 10*3/uL (0.0-0.4); EOS % 4.5 % (1.0-4.0); HEMATOCRIT 39.3 % (37.0-47.0); HEMOGLOBIN 12.6 g/dl (12.0-16.0); LYMPH # 1.6 10*3/uL (1.3-4.4); MEAN CELL VOLUME 98.7 fl (81.0-99.0); MEAN CORPUSCULAR HGB 31.7 pg (27.0-31.0); MEAN CORPUSCULAR HGB CONC 32.1 g/dl (33.0-37.0); MEAN PLATELET VOLUME 11.7 fl (9.6-12.3); MONO # 0.7 10*3/uL (0.1-1.0); MONO % 6.1 % (3.0-9.0); NEUT # 8.6 10*3/uL (2.3-7.9); NEUT % 74.1 % (47.0-73.0); PLATELET COUNT AUTOMATED 141 10*3/uL (130-400); RED BLOOD COUNT 3.98 10*6/uL (4.10-5.10); RED CELL DISTRI WIDTH 12.9 % (0-14.5); WHITE BLOOD COUNT 11.6 10*3/uL (4.8-10.8)
[2019-04-23 07:09] LABS: ALBUMIN 3.2 gm/dl (3.1-4.5); CREATININE 1.95 mg/dL (0.55-1.02); PHOSPHOROUS 3.3 mg/dL (2.5-4.9); POTASSIUM 4.2 mmol/L (3.5-5.1)
[2019-04-23 08:00] VITALS: BP 138/62
--- NOTE | 2019-04-23 08:30 | NUR ---
Slate Splitter in to see patient. Physician in room. Will follow up at a later time.
--- NOTE | 2019-04-23 10:28 | NUR ---
Clinical Informatics Director in to talk to patient. Patient states lives at home alone with her family checking in on her with . There are 0 steps in the home. Physician: Tejas Holman [facility]: [facility] Home health services: none Patient's level of ADLs: INDEPENDENT Patient has working utilities: yes DME: O2 @ 2L [place] [facility], portable O2 tanks, nebulizer, O2 supplier unknown Follow-up physician's appointment after d/c: will be made by the hospitalist nurse director upon discharge Does patient want to access PORTAL?: no Discharge plan discussed with patient. She lives at home alone with her son and xfvwqttu-my-qpe living right next door. She is independent in her ADLs and ambulation. Discussed home health care services and she denies any home needs. She states will stay for her echo in the morning but then needs to be discharged after that. Dr. Juan gasca. When medically stable she will be discharged to home. Her auxheeel-ov-fby will provide transportation on discharge. JAVAN LEY
[2019-04-23 12:00] VITALS: BP 165/54
[2019-04-23 16:00] VITALS: BP 165/54
--- NOTE | 2019-04-23 19:00 | NUR ---
ARRIVED ON SHIFT, INTRODUCED TO PATIENT, NO NEEDS VOICED AT THIS TIME, WHITE BOARD UPDATED.
[2019-04-23 20:00] VITALS: BP 135/98; BP 147/103
[2019-04-23 20:05] VITALS: BP 140/80
--- NOTE | 2019-04-23 22:25 | NUR ---
24 HR chart check completed.
[2019-04-24] VITALS: BP 192/62
[2019-04-24 06:28] LABS: BASO # 0.1 10*3/uL (0.0-0.1); BASO % 0.8 % (0.0-1.0); EOS # 1.5 10*3/uL (0.0-0.4); EOS % 14.2 % (1.0-4.0); HEMATOCRIT 39.3 % (37.0-47.0); HEMOGLOBIN 12.3 g/dl (12.0-16.0); LYMPH # 1.3 10*3/uL (1.3-4.4); LYMPH % 12.9 % (27.0-41.0); MEAN CELL VOLUME 97.3 fl (81.0-99.0); MEAN CORPUSCULAR HGB 30.4 pg (27.0-31.0); MEAN CORPUSCULAR HGB CONC 31.3 g/dl (33.0-37.0); MEAN PLATELET VOLUME 11.3 fl (9.6-12.3); MONO # 0.6 10*3/uL (0.1-1.0); MONO % 5.6 % (3.0-9.0); NEUT # 6.8 10*3/uL (2.3-7.9); NEUT % 65.9 % (47.0-73.0); PLATELET COUNT AUTOMATED 138 10*3/uL (130-400); RED BLOOD COUNT 4.04 10*6/uL (4.10-5.10); RED CELL DISTRI WIDTH 13.1 % (0-14.5); WHITE BLOOD COUNT 10.3 10*3/uL (4.8-10.8)
[2019-04-24 06:42] LABS: CREATININE 1.7 mg/dL (0.55-1.02); POTASSIUM 4.2 mmol/L (3.5-5.1)
[2019-04-24 08:00] VITALS: BP 180/53
--- NOTE | 2019-04-24 09:00 | NUR ---
Acrylic Fabricator in to see patient. No new needs or request at this time. She denies any home needs. When medically stable she will be discharged to home.
--- NOTE | 2019-04-24 10:07 | NUR ---
NOTIFIED HIRO THOMAS ANSWERING SERVICE OF NEW CONSULT FOR PALLIATIVE CARE.
--- NOTE | 2019-04-24 10:24 | NUR ---
Faxed palliative care referral to [facility] and notified palliative care nurse.
[2019-04-24 12:00] VITALS: BP 159/3
--- NOTE | 2019-04-24 14:06 | NUR ---
PT CAME TO DESK REQUESTING D/C. PT UPSET . NOTIFIED DR GARCIA. INFORMED DR GARCIA PT HAS F/U APPT WITH DR MERCADO NEXT WEEK AND F/U APPT SCHEDULED FOR DR BATRES PREVIOUSLY.
[2019-04-24] MEDS ORDERED: Ipratropium Brom3 ML INH (14:29)
--- NOTE | 2019-04-24 15:08 | NUR ---
Discharge instructions reviewed with patient/family. Patient receptive and verbalizes understanding. Follow-up care arranged. Written instructions given to patient/family. JESSIE MAYFIELD
--- NOTE | 2019-04-26 15:00 | NUR ---
Faxed nebulizer prescription to [facility]
== END 2019-04-24 15:08 | disposition home or self-care (01) | DRG 683 ==
LOC: ED 14:44 → EDHOLD 18:07 → 5E 18:07
PROVIDERS: Emergency Medicine; Internal Medicine Nephrology; Student in an Organized Health Care Education/Training Program; ADMIT Internal Medicine
DX: N17.0 Acute kidney failure with tubular necrosis (principal); E87.1 Hypo-osmolality and hyponatremia; I50.32 Chronic diastolic (congestive) heart failure; I13.0 Hypertensive heart and chronic kidney disease with heart failure and stage 1 through stage 4 chronic kidney disease, or unspecified chronic kidney disease; R73.9 Hyperglycemia, unspecified; H35.30 Unspecified macular degeneration; R73.03 Prediabetes; J43.9 Emphysema, unspecified; E83.41 Hypermagnesemia; R91.8 Other nonspecific abnormal finding of lung field; N18.9 Chronic kidney disease, unspecified; D72.810 Lymphocytopenia; Z88.1 Allergy status to other antibiotic agents; Z91.013 Allergy to seafood; Z79.82 Long term (current) use of aspirin; Z79.899 Other long term (current) drug therapy; Z87.891 Personal history of nicotine dependence; Z82.49 Family history of ischemic heart disease and other diseases of the circulatory system; Z83.3 Family history of diabetes mellitus

== ENCOUNTER → 2019-05-03 | Outpatient (CLI) | payer MEDICARE, OTHER ==
[~2019-05-03] MED LIST changes: +ANORO ELLIPTA1 EACH INH; +APRESOLINE25 MG PO; +ARNUITY ELLIP100 MCG INH; +ASPIRIN ADULT L81 M2 PO; +COZAAR100 MG PO; +Ipratropium Brom3 ML INH; +MUCINEX ER600 MG PO
== END | disposition home or self-care (01) ==
LOC: CT 13:00
DX: R91.1 Solitary pulmonary nodule (principal)

== ENCOUNTER 2019-05-09 11:57 | Inpatient (IN) | payer MEDICARE, OTHER ==
[~2019-05-09] VITALS: Ht 152.4 cm; Wt 83.5 kg
[~2019-05-09 11:57] MED LIST changes: -APRESOLINE25 MG PO; -ASPIRIN ADULT L81 M2 PO; -MUCINEX ER600 MG PO
[2019-05-09 12:40] LABS: BASO # 0.1 10*3/uL (0.0-0.1); BASO % 0.8 % (0.0-1.0); EOS # 1.2 10*3/uL (0.0-0.4); HEMATOCRIT 43.7 % (37.0-47.0); HEMOGLOBIN 13.6 g/dl (12.0-16.0); LYMPH % 11.5 % (27.0-41.0); MEAN CELL VOLUME 100.2 fl (81.0-99.0); MEAN CORPUSCULAR HGB 31.2 pg (27.0-31.0); MEAN CORPUSCULAR HGB CONC 31.1 g/dl (33.0-37.0); MEAN PLATELET VOLUME 11.3 fl (9.6-12.3); MONO # 0.6 10*3/uL (0.1-1.0); NEUT # 5.8 10*3/uL (2.3-7.9); NEUT % 66.2 % (47.0-73.0); PLATELET COUNT AUTOMATED 183 10*3/uL (130-400); RED BLOOD COUNT 4.36 10*6/uL (4.10-5.10); RED CELL DISTRI WIDTH 13.2 % (0-14.5); WHITE BLOOD COUNT 8.7 10*3/uL (4.8-10.8)
[2019-05-09 12:49] LABS: ACT PARTIAL THROMBO TIME 25.4 SECONDS (20.0-32.1); INTERNATIONAL NORM RATIO 0.9 (2.0-3.5)
[2019-05-09 12:58] LABS: ALBUMIN 3.4 gm/dl (3.1-4.5); CREATININE 1.79 mg/dL (0.55-1.02); POTASSIUM 4.8 mmol/L (3.5-5.1); TOTAL PROTEIN 7.5 gm/dL (6.4-8.2); TROPONIN I 0.017 ng/ml (<0.045)
[2019-05-09 14:00] VITALS: BP 164/87
--- NOTE | 2019-05-09 15:44 | NUR ---
DR. HERNANDEZ MADE AWARE THAT PATIENT BLOOD PRESSURE ELEVATED, 210/94 MANUALLY. HOME MEDICATIONS UPDATED/VARIFIED WITH PATIENT. PT TAKES METOPROLOL AT HOME AND STATES TOOK AM DOSE TODAY.
[2019-05-09 16:00] VITALS: BP 210/92
--- NOTE | 2019-05-09 16:09 | NUR ---
BLOOD PRESSURE TAKEN PRIOR TO HYDRALIZINE ADMINISTRATION, MANUAL PRESSURE 200/98. ORDERED DOSE OF HYDRALIZINE GIVEN, PT EXPLAINED MEDICATION AND UNDERSTANDS, WILL MONITOR BLOOD PRESSURE.
[2019-05-09 17:00] VITALS: BP 150/50; BP 150/52
[2019-05-09 20:00] VITALS: BP 148/59
--- NOTE | 2019-05-09 23:18 | NUR ---
URINE SPECIMEN OBTAINED AND SENT TO LAB FOR UA TO REFLUX.
[2019-05-09 23:41] LABS: BILIRUBIN NEGATIVE (NEGATIVE); BLOOD TRACE-INTACT (NEGATIVE); CLARITY CLEAR (CLEAR); COLOR YELLOW (YELLOW); GLUCOSE NEGATIVE (NEGATIVE); KETONE NEGATIVE (NEGATIVE); LEUKO ESTERASE NEGATIVE (NEGATIVE); NITRITE NEGATIVE (NEGATIVE); SPECIFIC GRAVITY 1.025 (1.005-1.030); UROBILINOGEN 0.2 E.U./dl (0.2-1.0)
[2019-05-09 23:45] LABS: WBC 0-2 wbc/hpf (0-5)
[2019-05-10] VITALS (9 sets, daily range): BP systolic 142–184; BP diastolic 59–82
--- NOTE | 2019-05-10 06:29 | NUR ---
24 HR chart check completed.
[2019-05-10 06:39] LABS: BASO % 0.2 % (0.0-1.0); EOS % 0.1 % (1.0-4.0); HEMATOCRIT 43.9 % (37.0-47.0); HEMOGLOBIN 13.7 g/dl (12.0-16.0); LYMPH # 0.9 10*3/uL (1.3-4.4); LYMPH % 8.5 % (27.0-41.0); MEAN CELL VOLUME 100.2 fl (81.0-99.0); MEAN CORPUSCULAR HGB 31.3 pg (27.0-31.0); MEAN CORPUSCULAR HGB CONC 31.2 g/dl (33.0-37.0); MEAN PLATELET VOLUME 11.6 fl (9.6-12.3); MONO # 0.2 10*3/uL (0.1-1.0); MONO % 1.4 % (3.0-9.0); NEUT # 9.7 10*3/uL (2.3-7.9); NEUT % 89.1 % (47.0-73.0); PLATELET COUNT AUTOMATED 224 10*3/uL (130-400); RED BLOOD COUNT 4.38 10*6/uL (4.10-5.10); RED CELL DISTRI WIDTH 13.2 % (0-14.5); WHITE BLOOD COUNT 10.9 10*3/uL (4.8-10.8)
[2019-05-10 06:54] LABS: POTASSIUM 4.9 mmol/L (3.5-5.1)
[2019-05-10 07:08] LABS: CREATININE 2.05 mg/dL (0.55-1.02); PHOSPHOROUS 4.5 mg/dL (2.5-4.9); THYROID STIM HORMONE (HS) 0.869 uIU/ml (0.358-4.75)
[2019-05-10 08:04] LABS: VITAMIN D, 25-HYDROXY 66.3 ng/mL (30-100)
--- NOTE | 2019-05-10 08:04 | NUR ---
PT SENT TO [facility]
--- NOTE | 2019-05-10 10:32 | NUR ---
return from bronch
--- NOTE | 2019-05-10 10:35 | NUR ---
PHYSICAL THERAPY Attempted to see pt for eval pt just returning from brochoscopy spoke with nurse to follow later in the PM after lunch. Ioana Hernandez PT
--- NOTE | 2019-05-10 10:37 | NUR ---
Occupational therapy orders received and chart reviewed. Per nursing, patient has returned from her bronch and to see patient in afternoon. Will follow up when available. Thank you. Heike Delgado, OTR/L
[2019-05-10 13:22] LABS: ABG BASE EXCESS -1.2 mmol/L (-2.0-2.0); ARTERIAL BLOOD GAS PH 7.347 (7.35-7.45)
--- NOTE | 2019-05-10 13:35 | NUR ---
Occupational therapy orders received and chart reviewed. Patient was seated EOB and reported she was "not feeling up to it" due to her nausea. Patient reported she "threw up my lunch". Patient's subjective information obtained. Patient agreeable to an OT evaluation in the AM. Thank you. Heike Delgado, OTR/L
[2019-05-10 13:51] LABS: CREATININE 2.15 mg/dL (0.55-1.02); POTASSIUM 4.6 mmol/L (3.5-5.1)
--- NOTE | 2019-05-10 14:00 | NUR ---
PHYSICAL THERAPY Attempted to see pt for evaluation sitting up at EOB subjective information taken however per pt she had just had an emesis after attempting to eat lunch earlier. She is still not feeling well and would rather be seen in the AM Will follow in the AM for evaluation Ioana Hernandez PT
--- NOTE | 2019-05-10 14:43 | NUR ---
Electrical Maintenance Mechanic in to talk to patient. Patient states lives at HOME with ALONE SON AND DIL LIVE NEXT DOOR AND CHECK ON HER FREQUENTLY. There are NO steps in the home. Physician: NOHELIA DOBSON [facility]: [facility] Home health services: NONE Patient's level of ADLs: INDEPENDENT Patient has working utilities: YES DME: NONE Follow-up physician's appointment after d/c: WILL BE MADE BY HOSPITALIST NURSE DIRECTOR ON DISCHARGE Does patient want to access PORTAL?: NO Discharge plan PT LIVES AT HOME ALONE AND IS INDEPENDENT IN HER CARE. STATES HER SON AND DIL LIVE NEXT DOOR AND CHECK ON HER FREQUENTLY AND HELP HER IF SHE NEEDS IT. PT STATES SHE PLANS TO RETURN HOME WHEN MEDICALLY STABLE. TALKED TO HER ABOUT [facility]NA BUT REFUSES AT THIS TIME. WILL CONTINUE TO FOLLOW. STATES SON WILL TAKE HER HOME.. ANGELIA MCDONOUGH
--- NOTE | 2019-05-10 17:53 | NUR ---
ROWLAND INSERTED, URINE OBTAINED
[2019-05-10 19:17] LABS: BILIRUBIN NEGATIVE (NEGATIVE); BLOOD NEGATIVE (NEGATIVE); CLARITY CLEAR (CLEAR); COLOR YELLOW (YELLOW); GLUCOSE NEGATIVE (NEGATIVE); KETONE NEGATIVE (NEGATIVE); LEUKO ESTERASE NEGATIVE (NEGATIVE); NITRITE NEGATIVE (NEGATIVE); UROBILINOGEN 0.2 E.U./dl (0.2-1.0)
[2019-05-10 19:23] LABS: WBC 0-2 wbc/hpf (0-5)
[2019-05-10 19:24] LABS: BACTERIA 1+; MUCOUS 1+
--- NOTE | 2019-05-10 20:49 | NUR ---
24 HR chart check completed.
[2019-05-11] VITALS: BP 162/54
[2019-05-11 08:00] VITALS: BP 178/62
[2019-05-11 08:10] LABS: COMPLEMENT C4 001834 17 mg/dL (14-44)
[2019-05-11 09:05] LABS: HEPATITIS B SURFACE AG Negative (Negative); HEPATITIS C VIRUS ANTIBODY <0.1 s/co (0.0-0.9)
[2019-05-11 09:28] LABS: BASO % 0.1 % (0.0-1.0); HEMATOCRIT 38.9 % (37.0-47.0); HEMOGLOBIN 11.8 g/dl (12.0-16.0); LYMPH # 0.9 10*3/uL (1.3-4.4); LYMPH % 5.9 % (27.0-41.0); MEAN CELL VOLUME 102.1 fl (81.0-99.0); MEAN CORPUSCULAR HGB CONC 30.3 g/dl (33.0-37.0); MEAN PLATELET VOLUME 11.1 fl (9.6-12.3); MONO # 0.5 10*3/uL (0.1-1.0); MONO % 3.2 % (3.0-9.0); NEUT # 13.2 10*3/uL (2.3-7.9); PLATELET COUNT AUTOMATED 205 10*3/uL (130-400); RED BLOOD COUNT 3.81 10*6/uL (4.10-5.10); RED CELL DISTRI WIDTH 13.4 % (0-14.5); WHITE BLOOD COUNT 14.7 10*3/uL (4.8-10.8)
[2019-05-11 09:45] LABS: ALBUMIN 3.3 gm/dl (3.1-4.5); CREATININE 1.94 mg/dL (0.55-1.02); PHOSPHOROUS 4.4 mg/dL (2.5-4.9); TOTAL PROTEIN 6.7 gm/dL (6.4-8.2)
--- NOTE | 2019-05-11 10:03 | NUR ---
SPOKE WITH DR BATRES REGARDING PT AND LABS. PHYSICIAN STATES TO KEEP CLOSE EYE ON PATIENTS OUTPUT VIA ROWLNAD AND ON BLOOD PRESSURE AND TO CALL IF BLOOD PRESSURE BECOMES ELEVATED. WILL CONTINUE TO MONITOR PATIENT.
--- NOTE | 2019-05-11 10:03 | NUR ---
Patient not available for Occupational Therapy evaluation as she is eating breakfast. Bonnie Harrell OTR/l
--- NOTE | 2019-05-11 10:26 | NUR ---
SPOKE WITH DR BATRES REGARDING PT. NEW ORDERS FOR PT TO HAVE CT ABDOMEN/PELVIS WITHOUT CONTRAST, ENSURE THAT PT IS ON RENAL DIET, AND PHYSICIAN WOULD LIKE CALLED LATER WITH RESULTS OF PATIENT'S OUTPUT IN ROWLAND CATHETER THROUGHOUT THE DAY.
--- NOTE | 2019-05-11 10:38 | NUR ---
Occupational Therapy offered but patient declined stating that she was nauseated. Nursing aware and involved. OTR to recheck at a later time. Bonnie Harrell OTR/L
--- NOTE | 2019-05-11 10:40 | NUR ---
PHYSICAL THERAPY Attempted to see pt for evaluation, sitting up at EOB, per pt unable to participate in therapy at this time due to nausea nsg aware and obtaining medication. Pt agreeable to try therapy in the PM will follow. Ioana Hernandez PT
[2019-05-11 10:49] VITALS: BP 142/60
--- NOTE | 2019-05-11 10:50 | NUR ---
PT NOTIFIED THAT SHE IS NPO AT THIS TIME FOR A CT OF ABDOMEN/PELVIS. PT ALSO NOTIFIED OF DIET CHANGE FROM REGULAR TO RENAL. DIET EXPLAINED TO PT.
--- NOTE | 2019-05-11 11:17 | NUR ---
PT CONTINUES TO DENY NEEDS AT HOME ON DISCHARGE. STATES SHE WILL GO HOME WHEN MEDICALLY STABLE, HER SON AND DIL HELP HER IF NEEDED.
[2019-05-11 12:00] VITALS: BP 164/91
[2019-05-11 12:04] LABS: ACID FAST SPEC PROCESSING Concentration (.)
--- NOTE | 2019-05-11 13:00 | NUR ---
PHYSICAL THERAPY Attempted to see pt for eval again the PM pt cont to decline due to not feeling well, nsg notified and aware of pt not feeling well and not up to doing PT at this time. Will follow in the AM Ioana Hernandez PT
--- NOTE | 2019-05-11 13:00 | NUR ---
Occupational Therapy evaluation offered this pm, while patient seated edge of bed. Patient declined stating she did not feel well. Nurse; Rosa informed that this was the 3rd time patient refused therapy today. OTR will attempt at a later date. Bonnie Harrell OTr/carlie
--- NOTE | 2019-05-11 13:20 | NUR ---
IV discontinued to right subclavian due to catheter becoming dislodged. Site asymptomatic. Pressure applied. Sterile dressing applied. ETELVINA GALLAGHER
--- NOTE | 2019-05-11 14:10 | NUR ---
ORDERS RECEIVED FROM DR HERNANDEZ TO GIVE PT PO ZOFRAN 4 MG PRN Q8H FOR N/V. PT REQUESTS ZOFRAN AND AT THIS TIME HAS NO IV SITE DUE TO FORMER SITE BECOMING DISLODGED. ATTEMPTING NEW IV SITE AT THIS TIME.
--- NOTE | 2019-05-11 15:35 | NUR ---
PT GIVEN ZOFRAN AT THIS TIME. WILL MONITOR FOR EFFECTIVENESS.
[2019-05-11 16:00] VITALS: BP 131/52
--- NOTE | 2019-05-11 16:35 | NUR ---
ZOFRAN EFFECTIVE PER PT.
[2019-05-11 20:00] VITALS: BP 130/54
--- NOTE | 2019-05-11 20:00 | NUR ---
NOTIFIED BY DAYLIGHT RN THAT IV WAS RESTARTED IN LEFT WRIST BY NINOSKA BURKETT RN.
--- NOTE | 2019-05-11 22:31 | NUR ---
24 HR chart check completed.
[2019-05-12] VITALS: BP 152/70
[2019-05-12 06:31] LABS: HEMATOCRIT 39.4 % (37.0-47.0); MEAN CELL VOLUME 102.9 fl (81.0-99.0); MEAN CORPUSCULAR HGB 31.3 pg (27.0-31.0); MEAN CORPUSCULAR HGB CONC 30.5 g/dl (33.0-37.0); MEAN PLATELET VOLUME 11.2 fl (9.6-12.3); PLATELET COUNT AUTOMATED 184 10*3/uL (130-400); RED BLOOD COUNT 3.83 10*6/uL (4.10-5.10); RED CELL DISTRI WIDTH 13.3 % (0-14.5); WHITE BLOOD COUNT 13.3 10*3/uL (4.8-10.8)
[2019-05-12 06:59] LABS: ALBUMIN 3.2 gm/dl (3.1-4.5); CREATININE 1.81 mg/dL (0.55-1.02); POTASSIUM 4.9 mmol/L (3.5-5.1)
--- NOTE | 2019-05-12 07:30 | NUR ---
TOOK OVER CARE OF PT. PT SITTING UP IN CHAIR BESIDE BED. NASAL CANNULA IN TACT. RESPIRTIONS EASY AND UNLABORED. PT PLEASANT WITH STAFF. PT DENIES BM X 3 DAYS. WILL GIVE PT PRN MEDICATION PER EMAR ORDERS. NO OTHER COMPLAINTS VOICED. WILL MONITOR. CALL LIGHT IN REACH.
[2019-05-12 07:40] LABS: PLATELET SUFFICIENCY NORMAL (NORMAL); POLYCHROMASIA SLIGHT; TOTAL CELLS COUNTED 100 #CELLS; VACUOLATION OF NEUTROPHILS SLIGHT
[2019-05-12 08:00] VITALS: BP 154/68
--- NOTE | 2019-05-12 08:29 | NUR ---
PT OFF FLOOR FOR CXR AT THIS TIME.
--- NOTE | 2019-05-12 09:00 | NUR ---
case management visits with patient, she will return home when medically stable and denies any home needs, case management will follow
--- NOTE | 2019-05-12 09:13 | NUR ---
PT GIVEN PO BISCODYL AND IV ZOFRAN FOR CONSTIPATION AND NAUSEA. WILL MONITOR FOR EFFECTIVENESS. PT SITTING UP IN CHAIR. CALL LIGHT IN REACH.
--- NOTE | 2019-05-12 09:15 | NUR ---
PT TOLD TO LET THIS NURSE KNOW WHEN SHE IS DONE DRINKING HER TEA SO THAT WE CAN GET HER BACK INTO BED IN ORDER TO REMOVE HER ROWLAND CATHETER, PER APPAREL CUTTER REQUEST.
--- NOTE | 2019-05-12 09:30 | NUR ---
PRACTICAL NURSING STUDENTS REMOVE ROWLAND CATHETER WITH INSTRUCTOR AT THIS TIME. WILL MONITOR PT FOR VOIDING POST CATHETER REMOVAL.
--- NOTE | 2019-05-12 10:21 | NUR ---
Patient declined Occupational Therapy evaluation stating she just returned to bed and she was not getting out now. Patient agreed to OT evaluation after Lunch at 1300. Bonnie Harrell OTR/Jose
--- NOTE | 2019-05-12 10:30 | NUR ---
PHYSICAL THERAPY Attempted to see pt for evaluation pt stating "I just laid down and I want to rest" spoke with nurse Rosa harris pt's request will follow after lunch. Ioana Hernandez PT
[2019-05-12 11:06] LABS: GLOMERULAR BASEMENT AB 082719 2 units (0-20)
--- NOTE | 2019-05-12 11:11 | NUR ---
PT UP WALKING THROUGHOUT HALLS AT THIS TIME. DENIES DISTRESS. RESPIRATIONS UNLABORED.
[2019-05-12 12:00] VITALS: BP 144/55
--- NOTE | 2019-05-12 12:00 | NUR ---
PT STATES THAT SHE HAS VOIDED WITHOUT PROBLEMS.
[2019-05-12] MEDS ORDERED: AMLODIPINE BESY10 MG PO (13:07)
[2019-05-12] MEDS ORDERED: APRESOLINE25 MG PO (13:07)
[2019-05-12] MEDS ORDERED: ASPIRIN ADULT L81 M2 PO (13:07)
--- NOTE | 2019-05-12 14:37 | NUR ---
PHYSICAL THERAPY Attempted to see pt for eval sleeping in bed awakened discussed therapy declining states she was up earlier walking in the hallways "they were checking my oxygen" will follow in the AM as appropriate Ioana Hernandez PT
[2019-05-12 16:00] VITALS: BP 138/54
[2019-05-12 16:10] LABS: ATYPICAL PANCA <1:20 titer (Neg:<1:20); CYTOPLASMIC (C-ANCA) 1:20 titer (Neg:<1:20)
[2019-05-12 20:00] VITALS: BP 152/52
--- NOTE | 2019-05-12 21:41 | NUR ---
SPOKE WITH DR SCHULTE REGARDING HR 58 AND LOPRESSOR DUE AT 2200. STATES TO HOLD BUT ADMINISTER OTHER MEDICATIONS ORDERED.
[2019-05-13] VITALS: BP 160/62
--- NOTE | 2019-05-13 02:57 | NUR ---
24 HOUR CHART CHECK COMPLETE.
--- NOTE | 2019-05-13 07:45 | NUR ---
INITIAL ASSEEMENT COMPLETE. RESPS EASY ON 2LNC. SITTING UP AT BEDSIDE REQUESTING BREATHING TX. NOTIFIED RT MYKEL.PT VOICES NO OTHER NEEDS.WILL CONTINUE TO MONITOR.
[2019-05-13 08:00] VITALS: BP 167/90
--- NOTE | 2019-05-13 10:33 | NUR ---
SITTING UP AT BEDSIDE. RESPS EASY ON 2LO2.VOICES NO NEEDS AT THIS TIME. WILL CONTINUE TO MONITOR.CALL LIGHT IN REACH.
[2019-05-13] MEDS ORDERED: PREDNISONE10 MG PO (10:43)
[2019-05-13] MEDS ORDERED: ZITHROMAX250 MG PO (10:43)
[2019-05-13] MEDS ORDERED: MUCINEX ER600 MG PO (10:43)
--- NOTE | 2019-05-13 11:52 | NUR ---
Discharge instructions reviewed with patient/family. Patient receptive and verbalizes understanding. Follow-up care arranged. Written instructions given to patient/family. JESSIE MAYFIELD
== END 2019-05-13 11:50 | disposition home or self-care (01) | DRG 177 ==
LOC: ED 11:57 → EDHOLD 12:45 → 5E 12:45
PROVIDERS: Family Medicine; Internal Medicine; Internal Medicine Critical Care Medicine; Internal Medicine Nephrology; Nurse Practitioner Family; ADMIT Internal Medicine
PROC: 0BC48ZZ Extirpation of Matter from Right Upper Lobe Bronchus, Via Natural or Artificial Opening Endoscopic (ICD-10-PCS; principal; 2019-05-10)
PROC: 0BC18ZZ Extirpation of Matter from Trachea, Via Natural or Artificial Opening Endoscopic (ICD-10-PCS; principal; 2019-05-10)
PROC: 0BC58ZZ Extirpation of Matter from Right Middle Lobe Bronchus, Via Natural or Artificial Opening Endoscopic (ICD-10-PCS; principal; 2019-05-10)
PROC: 0BC98ZZ Extirpation of Matter from Lingula Bronchus, Via Natural or Artificial Opening Endoscopic (ICD-10-PCS; principal; 2019-05-10)
PROC: 0BC78ZZ Extirpation of Matter from Left Main Bronchus, Via Natural or Artificial Opening Endoscopic (ICD-10-PCS; principal; 2019-05-10)
PROC: 0BC38ZZ Extirpation of Matter from Right Main Bronchus, Via Natural or Artificial Opening Endoscopic (ICD-10-PCS; principal; 2019-05-10)
PROC: 0BC68ZZ Extirpation of Matter from Right Lower Lobe Bronchus, Via Natural or Artificial Opening Endoscopic (ICD-10-PCS; principal; 2019-05-10)
PROC: 0BC88ZZ Extirpation of Matter from Left Upper Lobe Bronchus, Via Natural or Artificial Opening Endoscopic (ICD-10-PCS; principal; 2019-05-10)
PROC: 0BCB8ZZ Extirpation of Matter from Left Lower Lobe Bronchus, Via Natural or Artificial Opening Endoscopic (ICD-10-PCS; principal; 2019-05-10)
DX: J15.6 Pneumonia due to other Gram-negative bacteria (principal); N17.0 Acute kidney failure with tubular necrosis; J44.0 Chronic obstructive pulmonary disease with (acute) lower respiratory infection; J96.11 Chronic respiratory failure with hypoxia; I13.0 Hypertensive heart and chronic kidney disease with heart failure and stage 1 through stage 4 chronic kidney disease, or unspecified chronic kidney disease; I50.32 Chronic diastolic (congestive) heart failure; J44.1 Chronic obstructive pulmonary disease with (acute) exacerbation; J96.12 Chronic respiratory failure with hypercapnia; E66.2 Morbid (severe) obesity with alveolar hypoventilation; E83.41 Hypermagnesemia; R91.8 Other nonspecific abnormal finding of lung field; R34 Anuria and oliguria; N18.3 Chronic kidney disease, stage 3 (moderate); H35.30 Unspecified macular degeneration; R73.03 Prediabetes; D75.89 Other specified diseases of blood and blood-forming organs; E83.9 Disorder of mineral metabolism, unspecified; E87.5 Hyperkalemia; R80.9 Proteinuria, unspecified; Z87.891 Personal history of nicotine dependence; Z83.3 Family history of diabetes mellitus; Z82.49 Family history of ischemic heart disease and other diseases of the circulatory system; Z88.1 Allergy status to other antibiotic agents; Z91.013 Allergy to seafood; Z79.82 Long term (current) use of aspirin; Z79.899 Other long term (current) drug therapy; Z68.33 Body mass index [BMI] 33.0-33.9, adult

== ENCOUNTER → 2019-05-25 | Outpatient (CLI) | payer MEDICARE, OTHER ==
[~2019-05-25] MED LIST changes: +APRESOLINE25 MG PO; +ASPIRIN ADULT L81 M2 PO; +MUCINEX ER600 MG PO
== END | disposition home or self-care (01) ==
LOC: RAD 10:15
DX: J90 Pleural effusion, not elsewhere classified (principal); J98.4 Other disorders of lung

== ENCOUNTER 2019-06-01 15:06 | Inpatient (IN) | payer MEDICARE, OTHER ==
[~2019-06-01] VITALS: Ht 154.9 cm; Wt 85.0 kg
[2019-06-01 15:14] VITALS: BP 149/67
[2019-06-01 15:45] LABS: BASO % 0.2 % (0.0-1.0); EOS # 0.3 10*3/uL (0.0-0.4); EOS % 2.3 % (1.0-4.0); HEMATOCRIT 39.3 % (37.0-47.0); HEMOGLOBIN 11.7 g/dl (12.0-16.0); LYMPH # 0.5 10*3/uL (1.3-4.4); LYMPH % 4.4 % (27.0-41.0); MEAN CELL VOLUME 102.6 fl (81.0-99.0); MEAN CORPUSCULAR HGB 30.5 pg (27.0-31.0); MEAN CORPUSCULAR HGB CONC 29.8 g/dl (33.0-37.0); MEAN PLATELET VOLUME 11.4 fl (9.6-12.3); MONO # 0.5 10*3/uL (0.1-1.0); MONO % 4.2 % (3.0-9.0); NEUT # 9.8 10*3/uL (2.3-7.9); NEUT % 88.3 % (47.0-73.0); PLATELET COUNT AUTOMATED 157 10*3/uL (130-400); RED BLOOD COUNT 3.83 10*6/uL (4.10-5.10); WHITE BLOOD COUNT 11.1 10*3/uL (4.8-10.8)
[2019-06-01 15:58] LABS: ACT PARTIAL THROMBO TIME 25.6 SECONDS (20.0-32.1); INTERNATIONAL NORM RATIO 0.9 (2.0-3.5)
[2019-06-01 16:00] LABS: ALKALINE PHOSPHATASE 87 U/L (45-117); BUN 41 mg/dl (7-24); CHLORIDE 104 mmol/L (98-107); CREATININE 1.32 mg/dL (0.55-1.02); POTASSIUM 5.2 mmol/L (3.5-5.1); SGOT/AST 17 IU/L (3-35); SGPT/ALT 35 U/L (12-78); SODIUM 139 mmol/L (136-145); TOTAL PROTEIN 7.4 gm/dL (6.4-8.2)
[2019-06-01 16:05] LABS: TROPONIN I < 0.015 ng/ml (<0.045)
--- NOTE | 2019-06-01 16:30 | NUR ---
PATIENT PLACED ON BI-PAP 03/05, FIO2 40%, BACK UP RATE OF 8. PULSE OX 93%.
[2019-06-01 17:19] LABS: ABG BASE EXCESS 1.2 mmol/L (-2.0-2.0); ARTERIAL BLOOD GAS PH 7.326 (7.35-7.45)
[2019-06-01 18:53] VITALS: BP 137/82
[2019-06-01 19:00] VITALS: BP 148/64
--- NOTE | 2019-06-01 20:45 | NUR ---
EKG AT BEDSIDE.
--- NOTE | 2019-06-01 20:54 | NUR ---
AWAITING CT BEFORE TRANSPORT TO FLOOR.
--- NOTE | 2019-06-01 21:28 | NUR ---
UPDATE GIVEN TO ALEXIA ICU NURSE AND DR PENN. AWAITING CT BEFORE TRANSPORT TO ICU. PT IS NEXT FOR CT.
[2019-06-01 22:15] VITALS: BP 131/57
--- NOTE | 2019-06-01 22:15 | NUR ---
A 84 YEAR OLD FEMALE admitted to ICCU, under the services of ALVARADO Robert DO with a diagnosis of CHF,PNEUMONIA, FAILURE OF OP RX. Chief complaint is SOB. Patient arrived via stretcher from ER. Monitor applied. Initial assessment completed. Vital signs taken and recorded. ALVARADO ROBERT DO notified of admission to the unit. Orders received. See assessment for past medical history, medications and allergies. Patient and/or family oriented to unit. [facility] ICCU visitation policy reviewed. Clothing/patient valuable form completed. ALEXIA MUHAMMAD
[2019-06-01] MEDS ORDERED: LOPRESSOR25 MG PO (22:47)
[2019-06-01] MEDS ORDERED: NICODERM CQ1 EAC1 TD (22:49)
[2019-06-01] MEDS ORDERED: MIRALAX17 GM PO (22:53)
--- NOTE | 2019-06-01 23:19 | NUR ---
DR. CHANEL NOTIFIED OF CONSULT. NO NEW ORDERS RECEIVED. PT RESTING IN BED WITH EYES CLOSED. BIPAP INTACT. APPEARS TO BE SLEEPING.
--- NOTE | 2019-06-01 23:56 | NUR ---
2345 DR. PENN HERE AND AWARE OF CT RESULTS. ORDERS RECEIVED. 2350 #18 ROWLAND CATHETER INSERTED UNDER STERILE TECHNIQUE ORDERED. TOLERATED WELL. 2355 40MG IV LASIX GIVEN ORDERED. BIPAP REMOVED. PT PLACED ON 4L NC TO EAT A BOXED LUNCH. PULSE OX 90% WHILE EATING. WILL CONT TO MONITOR. RESPIRATORY THERAPY AWARE.
--- NOTE | 2019-06-02 00:40 | NUR ---
PLACED BACK ON BIPAP. DDECREASED TO 50% FIO2. PULSE OX 97%. NO DISTRESS NOTED. DIURESING EARLIER FROM EARLIER IV LASIX.
--- NOTE | 2019-06-02 02:21 | NUR ---
ZAFAR FORMAN [id number] Please refer to the physician's history and physical for past medical history, comorbid conditions, and allergies. Diagnosis: CHF FAILURE OF OUTPATIENT TREATMENT PNEUMONIA Michael Score: 18,LOW OR NO RISK WOUND DESCRIPTIONS: Wound Number: 1 Location of the wound: left buttocks Type of wound: stage 2 Thickness: Partial Size: 6.0cm x 6.0cm x 0.1cm Tunneling: none Undermining: none Sinus Tract: none Presence of Exudate: none Amount: None Color: Red Odor: None Periwound Skin Appearance: Normal Wound edges: approximated Pain (associated with wound): none at time of assessment How does patient state this happened? pt unable to state how this happened Wound Number: 2 Location of the wound: right buttocks Type of wound: stage 2 Thickness: Partial Size: 4.0cm x 9.5cm x 0.1cm Tunneling: none Undermining: none Sinus Tract: none Presence of Exudate: none Amount: None Color: Red Odor: None Periwound Skin Appearance: Normal Wound edges: approximated Pain (associated with wound): none at time of assessment How does patient state this happened? pt unable to state how this happened Wound Number: 3 Location of the wound: intergluteal cleft Type of wound: stage 2 Thickness: Partial Size: 2.0cm x 1.0cm x 0.1cm Tunneling: none Undermining: none Sinus Tract: none Presence of Exudate: none Amount: None Color: Red Odor: None Periwound Skin Appearance: Normal Wound edges: approximated Pain (associated with wound): none at time of assessment How does patient state this happened? pt unable to state how this happened Surface the patient is resting on: Isofex SKIN PREVENTION RECOMMENDATION: 1. Pressure redistribution support surface as appropriate 2. Elevate heels 3. Remove boots/TEDS every shift and reapply 4. Head of bed 30 degrees as tolerated 5. Assess nutrition and hydration 6. Manage moisture 7. Avoid the use of containment devices while in bed 8. Use absorptive products on surfaces limit layers of linens on bed 9. Turn and reposition every 1-2 hours in bed and every 1 hour in chair as tolerated 10. Weight shifts every 15 minutes while up in chair 11. Offloading with pillows or device to keep heels elevated off bed 12. Monitor skin at least every shift 13. Inspect under medical devices twice a day WOUND TREATMENT RECOMMENDATIONS: Stage 2 guidelines: Cleanse left buttocks, right buttocks and intergluteal cleft with nss and apply sureprep around the wound therahoney to wound bed and cover optifoam gentle or optifoam sacral gentle. Wheelchair cushion when oob.
[2019-06-02 04:00] VITALS: BP 135/61
--- NOTE | 2019-06-02 04:09 | NUR ---
RESTING IN BED WITH EYES CLOSED. APPEARS TO BE SLEEPING. HOB ELEVATED. SIDE RAILS UP X'S 2. CALL LIGHT IN REACH.
--- NOTE | 2019-06-02 05:29 | NUR ---
BIPAP REMOVED PER PT REQUEST. PLACED ON NC AT 4L. PULSE OX 94%. WILL MONITOR.
--- NOTE | 2019-06-02 06:05 | NUR ---
RESTING IN BED WITHOUT C/O'S. HEP LOCK INTACT. 02 INTACT VIA NC. ROWLAND PATENT AND DRAINING CLEAR YELLOW URINE. NO DISTRESS NOTED. CONDITION GUARDED.
[2019-06-02 06:53] LABS: HEMATOCRIT 35.7 % (37.0-47.0); HEMOGLOBIN 10.5 g/dl (12.0-16.0); MEAN CELL VOLUME 105.3 fl (81.0-99.0); MEAN CORPUSCULAR HGB CONC 29.4 g/dl (33.0-37.0); PLATELET COUNT AUTOMATED 131 10*3/uL (130-400); RED BLOOD COUNT 3.39 10*6/uL (4.10-5.10); RED CELL DISTRI WIDTH 13.7 % (0-14.5); WHITE BLOOD COUNT 7.5 10*3/uL (4.8-10.8)
[2019-06-02 07:04] LABS: INTERNATIONAL NORM RATIO 0.9 (2.0-3.5)
[2019-06-02 07:10] LABS: ALBUMIN 2.6 gm/dl (3.1-4.5); CREATININE 1.45 mg/dL (0.55-1.02); PHOSPHOROUS 5.3 mg/dL (2.5-4.9); POTASSIUM 4.8 mmol/L (3.5-5.1); TOTAL PROTEIN 6.9 gm/dL (6.4-8.2)
[2019-06-02 07:24] LABS: TOTAL CELLS COUNTED 100 #CELLS
[2019-06-02 07:25] LABS: PLATELET SUFFICIENCY NORMAL (NORMAL); POLYCHROMASIA SLIGHT
[2019-06-02 08:00] VITALS: BP 139/63
[2019-06-02 08:57] LABS: URINE CREATININE RANDOM 31.8 mg/dL
[2019-06-02 09:05] LABS: BILIRUBIN NEGATIVE (NEGATIVE); BLOOD NEGATIVE (NEGATIVE); CLARITY CLEAR (CLEAR); COLOR YELLOW (YELLOW); GLUCOSE NEGATIVE (NEGATIVE); KETONE NEGATIVE (NEGATIVE); LEUKO ESTERASE NEGATIVE (NEGATIVE); NITRITE NEGATIVE (NEGATIVE); UROBILINOGEN 0.2 E.U./dl (0.2-1.0)
[2019-06-02 09:06] LABS: RBC 0-2 rbc/hpf (0-2)
--- NOTE | 2019-06-02 09:20 | NUR ---
PHYSICAL THERAPY Progress note: Pt was seen today for evaluation while in ICCU. Pt demonstrated good strength, was CGA for v/c with bed mobility, transfers and 8' gait at bedside with FWW. Recommend HHPT upon discharge. Please refer to [facility] for details. Thank you for this referral. Terese Grier, PT
--- NOTE | 2019-06-02 09:20 | NUR ---
Occupational Therapy evaluation completed In ICCU with full evaluation to follow. Recommend occupational therapy per plan of care and return home if goals met and home health OT,PT,SN upon discharge. Thank you for this referral. Bonnie Harrell OTR/l
--- NOTE | 2019-06-02 11:00 | NUR ---
Crew Supervisor in to talk to patient. Patient states lives at home alone with her son and [id number] living next door. There are 0 steps in the home. Physician: Tejas Holman [facility]: [facility] Home health services: [facility] and would like resume those services upon discharge Patient's level of ADLs: MINIMAL ASSIST Patient has working utilities: yes DME: walker, O2 @ 2L n[facility] HS, portable O2 tanks, nebulizer, O2 supplier [facility] Follow-up physician's appointment after d/c: will be made by the hospitalist nurse director upon discharge Does patient want to access PORTAL?: no Discharge plan discussed with patient. She lives at home alone with her family checking in on her. She is independent in her ADLs and ambulates with a walker. Discussed home health care services and she thinks she currently has [facility] and would like to resume those services upon discharge. When medically stable she will be discharged to home with the resumption of her [facility]. She states her son will provide transportation on discharge. JAVAN LEY
--- NOTE | 2019-06-02 11:40 | NUR ---
20fr chest tube placed to left side by with assist of Dr. Justice. Pt tolerated well.
[2019-06-02 11:48] LABS: BODY FLUID WBC 164 /uL
[2019-06-02 12:00] VITALS: BP 137/78
[2019-06-02 12:27] LABS: BF LYMPHOCYTES 67 %; BF MACROPHAGES 2 %; BF MESOTHELIALS 7 %; BF NEUTROPHILS 24 %
--- NOTE | 2019-06-02 15:05 | NUR ---
PT MEDICATED WITH ZOFRAN FOR NAUSEA AND NORCO FOR CHEST TUBE INSERTION SITE PAIN.
[2019-06-02 16:00] VITALS: BP 112/92
[2019-06-02 20:00] VITALS: BP 114/78
--- NOTE | 2019-06-02 21:31 | NUR ---
PT ASSISTED TO POSITION OF COMFORT ON RT SIDE, NEW UNDERLINENS CHANGED, AND NEW DRESSING APPLIED TO BUTTOCKS. PT TOLERATED WELL. IN NO DISTRESS AT THIS TIME.
[2019-06-03] VITALS: BP 99/48
--- NOTE | 2019-06-03 00:25 | NUR ---
DESPITE RATIONALE EXPLANATIONS BY RESP DEPT, PT CONTINUES TO DECLINE BIPAP WEARING. PULSE OX 88-95% ON NASAL WITH PT MOUTH BREATHING INTERMITTENTLY.
--- NOTE | 2019-06-03 00:27 | NUR ---
WITH FURTHER ENCOURAGEMENT, PT CONSENTED TO WEARING BIPAP ORDERED. PULSE OX REMAINS IN 90'S.
[2019-06-03 04:00] VITALS: BP 133/60
--- NOTE | 2019-06-03 04:45 | NUR ---
PT OFF BIPAP. NORCO/ZOFRAN PER PT REQUEST FOR PAIN AT CHEST TUBE INSERTION SITE. ASSISTED TO POSITION OF COMFORT. CONTINUES TO DECLINE OFFER OF BATH AT THIS TIME.
[2019-06-03 05:16] LABS: CREATININE 1.7 mg/dL (0.55-1.02); PHOSPHOROUS 4.6 mg/dL (2.5-4.9)
[2019-06-03 06:27] LABS: HEMATOCRIT 36.1 % (37.0-47.0); HEMOGLOBIN 10.7 g/dl (12.0-16.0); MEAN CELL VOLUME 104.6 fl (81.0-99.0); MEAN CORPUSCULAR HGB CONC 29.6 g/dl (33.0-37.0); MEAN PLATELET VOLUME 11.6 fl (9.6-12.3); RED BLOOD COUNT 3.45 10*6/uL (4.10-5.10); RED CELL DISTRI WIDTH 13.7 % (0-14.5); WHITE BLOOD COUNT 15.8 10*3/uL (4.8-10.8)
--- NOTE | 2019-06-03 06:29 | NUR ---
PT STATES PAIN MEDICATION STARTING TO HELP. PROVIDED WITH PEANUT BUTTER AND CRACKERS PER REQUEST.
[2019-06-03 06:32] LABS: PLATELET COUNT AUTOMATED 177 10*3/uL (130-400)
[2019-06-03 07:34] LABS: TOTAL CELLS COUNTED 100 #CELLS
[2019-06-03 07:35] LABS: PLATELET SUFFICIENCY NORMAL (NORMAL)
[2019-06-03 08:00] VITALS: BP 115/57
--- NOTE | 2019-06-03 08:00 | NUR ---
DR ADAIR IN TO SEE PT.
--- NOTE | 2019-06-03 11:05 | NUR ---
PT UP TO CHAIR WITH 1 ASSIST.
[2019-06-03 12:00] VITALS: BP 130/58
--- NOTE | 2019-06-03 12:11 | NUR ---
PT SITTING IN THE CHAIR. DR CHANEL IN TO SEE PT EARLIER. NO NEW ORDERS RECEIVED AT THIS TIME.
[2019-06-03 15:49] VITALS: BP 146/68
--- NOTE | 2019-06-03 16:29 | NUR ---
ANSWERING SERVICE NOTIFIED OF NEW CONSULT ORDER.
--- NOTE | 2019-06-03 16:46 | NUR ---
RETURNED CALL. INFORMED OF NEW CONSULT. NEW ORDERS RECEIVED.
--- NOTE | 2019-06-03 17:49 | NUR ---
HERE. REALIZED CONSULT ORDER FOR WAS PLACED ON WRONG PATIENT. NOTIFIED.
--- NOTE | 2019-06-03 19:14 | NUR ---
CHART CHECK COMPLETE. PT HAD BEEN ASSISTED BACK TO CHAIR AT 1900.
--- NOTE | 2019-06-03 19:33 | NUR ---
PT ASSESSMENT COMPLETE. CONCERN EXPRESSED OVER HOME MEDICATIONS. INFORMED PT THAT HER MEDICATIONS WERE REORDERED AND SHE WILL BE GIVEN THEM TONIGHT AT 2100. STILL AWAITING PRESERVATION EYE GTTS TO BE SENT BACK FROM PHARMACY.
--- NOTE | 2019-06-03 19:35 | NUR ---
OFFERED PT DIMITRI PINO, SHE SAYS "NO, IT'S TOO LATE NOW." I WILL OFFER AGAIN AT HS AND THEN AGAIN AT 0400 ASSESSMENT OR AFTER AM LABDRAW IF PT REFUSES HS OFFER.
[2019-06-03 20:00] VITALS: BP 140/54
--- NOTE | 2019-06-03 21:05 | NUR ---
YONATAN FOR CHEST TUBE INSERTION SITE DISCOMFORT AND PREVENTION OF NAUSEA AT 2049 PER PT REQUEST.
--- NOTE | 2019-06-03 22:12 | NUR ---
PT SPILLED HER CUP OF WATER ON HER BED SHEETS ACCIDENTALLY. AGAIN, I SAID "WHY DON'T WE JUST GO AHEAD AND DO YOUR BATH NOW?". PT AGAIN SAYS "NO NOT RIGHT NOW." NEW DRAW SHEET AND BLANKET FROM WARMER PROVIDED. ASSISTED PT TO POSITION OF COMFORT.
--- NOTE | 2019-06-03 23:00 | NUR ---
NORCO AND ZOFRAN EFFECTIVE FOR PAIN AND PREVENTION OF NAUSEA PER PT.
[2019-06-04] VITALS: BP 120/61
--- NOTE | 2019-06-04 03:19 | NUR ---
PT SITTING ON SIDE OF BED EATING A REQUESTED BOXED LUNCH WITH ADDITIONAL APPLESAUCE AND PUDDING "THESE STEROIDS MAKE ME WANT TO EAT NONSTOP. I'M GONNA END UP BEING 300 POUNDS!"
[2019-06-04 04:00] VITALS: BP 156/60
[2019-06-04 04:52] LABS: HEMATOCRIT 34.7 % (37.0-47.0); HEMOGLOBIN 10.5 g/dl (12.0-16.0); MEAN CORPUSCULAR HGB 31.2 pg (27.0-31.0); MEAN CORPUSCULAR HGB CONC 30.3 g/dl (33.0-37.0); NUCLEATED RED BLOOD CELL 0.2 % (0.0-0.0); PLATELET COUNT AUTOMATED 171 10*3/uL (130-400); RED BLOOD COUNT 3.37 10*6/uL (4.10-5.10); RED CELL DISTRI WIDTH 13.6 % (0-14.5); WHITE BLOOD COUNT 12.3 10*3/uL (4.8-10.8)
--- NOTE | 2019-06-04 05:24 | NUR ---
PT BATHED AND HER HAIR WASHED. LINENS CHANGED. SHE TOLERATED VERY WELL. VERY CONVERSIVE THROUGHOUT CARE.
[2019-06-04 05:33] LABS: CREATININE 1.7 mg/dL (0.55-1.02); POTASSIUM 4.9 mmol/L (3.5-5.1)
[2019-06-04 05:39] LABS: PLATELET SUFFICIENCY NORMAL (NORMAL); TOTAL CELLS COUNTED 100 #CELLS
--- NOTE | 2019-06-04 06:08 | NUR ---
ASSISTED UP TO BSC BUT PT WAS UNABLE TO HAVE BM. ASSISTED BACK TO BED AND TO POSITION OF COMFORT.
[2019-06-04 08:00] VITALS: BP 165/73
[2019-06-04 08:06] LABS: CREATININE,URINE 49.5 mg/dL (Not Estab.)
--- NOTE | 2019-06-04 08:10 | NUR ---
DR ADAIR IN TO SEE PT.
[2019-06-04 12:00] VITALS: BP 111/57
--- NOTE | 2019-06-04 12:28 | NUR ---
DR CHANEL IN TO SEE PT.
[2019-06-04 16:00] VITALS: BP 127/61
[2019-06-04 20:00] VITALS: BP 124/73
--- NOTE | 2019-06-04 20:00 | NUR ---
PT SITTING UP IN CHAIR WATCHING TV, A&O, PLEASANT AND COOPERATIVE. RESP NONLABORED. NO ACUTE DISTRESS NOTED. MEDICATED WITH NORCO PER PRN ORDER FOR C/O PAIN. HEPLOCK PATENT. CHEST TUBE PATENT TO SUCTION.
--- NOTE | 2019-06-04 21:00 | NUR ---
NORCO EFFECTIVE FOR PAIN.
--- NOTE | 2019-06-04 22:25 | NUR ---
MEDICATED WITH RESTORIL PER PRN ORDER FOR C/O INSOMNIA.
[2019-06-05] VITALS: BP 128/45
[2019-06-05 04:00] VITALS: BP 163/65
[2019-06-05 05:35] LABS: CREATININE 1.57 mg/dL (0.55-1.02)
[2019-06-05 06:12] LABS: BASO % 0.2 % (0.0-1.0); HEMATOCRIT 32.3 % (37.0-47.0); HEMOGLOBIN 9.8 g/dl (12.0-16.0); LYMPH # 0.5 10*3/uL (1.3-4.4); LYMPH % 5.2 % (27.0-41.0); MEAN CELL VOLUME 103.5 fl (81.0-99.0); MEAN CORPUSCULAR HGB 31.4 pg (27.0-31.0); MEAN CORPUSCULAR HGB CONC 30.3 g/dl (33.0-37.0); MEAN PLATELET VOLUME 11.7 fl (9.6-12.3); MONO # 0.2 10*3/uL (0.1-1.0); MONO % 2.7 % (3.0-9.0); NEUT # 7.9 10*3/uL (2.3-7.9); NEUT % 89.4 % (47.0-73.0); PLATELET COUNT AUTOMATED 150 10*3/uL (130-400); RED BLOOD COUNT 3.12 10*6/uL (4.10-5.10); RED CELL DISTRI WIDTH 13.5 % (0-14.5); WHITE BLOOD COUNT 8.8 10*3/uL (4.8-10.8)
--- NOTE | 2019-06-05 07:26 | NUR ---
Shift chart check completed.
--- NOTE | 2019-06-05 07:31 | NUR ---
Shift chart check completed.
[2019-06-05 08:00] VITALS: BP 164/54
--- NOTE | 2019-06-05 08:00 | NUR ---
ASSESSMENT DONE - CHEST TUBE ON LEFT TO 20CM WATER SEAL WITHOUT FLUXUATION. PATIENT DENIES SOB. BED SATURATED FROM CHEST TUBE DRAINING AROUND TUBE. BED CHANGED & BATH DONE THEN UP TO CHAIR - DRESSING CHANGED. ROWLAND PATENT FOR STRAW URINE
--- NOTE | 2019-06-05 08:40 | NUR ---
PHYSICAL THERAPY Patient seen this am 1;1 for therapy visit and was sitting up in bedside chair upon therapist arrival. Patient identified by name / and was very pleasant this morning, voicing no new c/o's. OT curatorial assistant was also present for observation only this session as patient presented with continuos O2-4L via NC and chest tube. Patient SpO2 97%, HR 65 bpm prior to treatment and remained WFL's throughout entire treatment. Patient performed several sit to stand transfers, CGA, use of wh walker standing support, tolerating 2 minutes static stand first trial and 5 minutes second trial with mild fatigue. Patient also completed seated B LE therex, all planes, x 10 reps each to increase LE strength and remained in bedside chair with call light, tray table and telephone awaiting breakfast. Will continue per POC as tolerated, total treatment time 17 minutes. Mayank Lopez, STAFF RESPIRATORY THERAPIST
--- NOTE | 2019-06-05 08:45 | NUR ---
DR YANIQUE GALICIA
--- NOTE | 2019-06-05 09:00 | NUR ---
OT NOTE Pt was seen this A.M. 1:1 for 30 minute OT session. Upon arrival pt was sitting upright in the recliner. Pt identified by name and and had no complaints at this time. Pt presented to therapy with continuous 4L-O2 via NC which she remained on throughout the entire session. Pt completed a grooming task consisting of washing her face and completing oral care while seated with SBA after set up. Pt then stood while brushing her hair and completing jarrod care with CGA. Pt then completed multiple sit to stand transfers from chair level with Petros for inital stand and then CGA for all others with w/w for UE support. Challenged pt's static standing tolerance needed for increased I in self care tasks and functional transfers, pt was able to tolerate aprox 3-5 minutes before sitting due to fatigue. Standing pivot then completed from the recliner <> bedside commode with CGA and use of w/w. Throughout session pt's heart rate remained between 67-72 bpm and Spo2 97-98%. Pt was left sitting upright in the recliner with call light in hand, tray table in place, and ICCU nurse notified. Continue with rec D/C plan home with home health if goals met. TWYLA De Leon/Jose
--- NOTE | 2019-06-05 09:58 | NUR ---
DR PLAZA HERE
--- NOTE | 2019-06-05 10:45 | NUR ---
SLEEPING IN BED AFTER UP TO CHAIR, BATH, WORKED WITH PT/OT & ATE BREAKFAST
--- NOTE | 2019-06-05 11:00 | NUR ---
Financial Services Education Consultant in to see patient. She would like a walker and nebulizer for home as she is borrowing her sister's. Hospitalist nurse director notified. When medically stable she will be discharged to home with the resumption of her [facility] services (verified with Jessika from [facility]).
[2019-06-05 12:00] VITALS: BP 147/60
--- NOTE | 2019-06-05 12:30 | NUR ---
SAND CUTTER OPERATOR TOLD OF PATIENT DOWNGRADED
--- NOTE | 2019-06-05 13:00 | NUR ---
OT NOTE Pt was seen this P.M. 1:1 for second OT session consisting of 15 minutes. Upon arrival pt was sitting upright on the bedside commode. Pt identified by name and and had no complaints at this time. Pt presented to therapy with continuous 3L-O2 via NC which she remained on throughout the entire session. While seated pt completed toilet hygiene with SBA and then stood while completing hygiene with CGA due to being unsteady. Clothing management completed with CGA for safety. Standing pivot then completed back to the recliner with CGA and use of w/w for UE support. While seated pt was educated on energy conservation and work simplification techniques. Pt verbalized understanding. Pt was left sitting upright in the recliner with call light in hand. tray table in place, and ICCU nurse notified. Continue with rec D/C plan to home with home health if goals are met. TWYLA De Leon/Jose
--- NOTE | 2019-06-05 15:17 | NUR ---
Faxed presciptions for walker and nebulizer to [facility]. Awaiting response.
[2019-06-05 16:00] VITALS: BP 143/53
[2019-06-05 16:05] LABS: ATYPICAL PANCA <1:20 titer (Neg:<1:20); CYTOPLASMIC (C-ANCA) <1:20 titer (Neg:<1:20)
--- NOTE | 2019-06-05 16:09 | NUR ---
Spoke to Blank at [facility] regarding walker and nebulizer. Equipment will be delivered to patient's home upon discharge.
--- NOTE | 2019-06-05 18:53 | NUR ---
BELONGINGS MOVED TO 4E
--- NOTE | 2019-06-05 19:45 | NUR ---
PATIENT TRANSFERRED OUT FROM ICU TO [facility]. ALL BELONGINGS WITH PT. PT IS AWAKE IN BED, ALERT & ORIENTED X3. PT DENIES ANY NEEDS. O2 IN USE VIA 3L NC. CHEST TUBE PATENT. ALL TUBING FREE OF CLAMPS/KINKS. CHEST TUBE BELOW PATIENT ON FLOOR AND CONNECTED TO WALL SUCTION. NO BUBBLING/FLUCTUATION NOTED IN WATER SEAL CHAMBER. WILL MONITOR. CALL LIGHT IN REACH.
--- NOTE | 2019-06-05 19:57 | NUR ---
Patient placed on NIV. Instructed patient to try to stay on as long as they possibly could. Patient is comfortable at this time.
[2019-06-05 20:00] VITALS: BP 133/69
--- NOTE | 2019-06-05 21:11 | NUR ---
PT TAKEN OFF BIPAP AND PLACED ON 3L NC. POX 94% ON 3L. VANDA PROVIDED PER REQUEST. WILL MONITOR. CALL LIGHT IN REACH.
[2019-06-06] VITALS: BP 126/57
--- NOTE | 2019-06-06 04:20 | NUR ---
PT ASLEEP IN BED. O2 IN USE VIA 3L NC. NO S/S OF DISTRESS NOTED. CHEST TUBE REMAINS INTACT. STILL NO FLUCTUATION NOTED IN WATER SEAL CHAMBER OF CHEST TUBE.
--- NOTE | 2019-06-06 06:16 | NUR ---
PT'S CHEST TUBE LEAKING FROM INSERTION SITE. NOTIFIED. HERE TO SEE PT. STAT CXR ORDERED. DRESSING REINFORCED PER 'S ORDERS.
--- NOTE | 2019-06-06 06:45 | NUR ---
PT ASSISTED UP TO BSC. NEW BED LINENS/GOWN/CHUCKS PROVIDED. REINFORCED DRESSING TO CHEST TUBE SITE REMAINS DRY. PATIENT ASSISTED BACK INTO BED. REPOSITIONED FOR COMFORT. WILL MONITOR. CALL LIGHT IN REACH. BED ALARM INTACT.
[2019-06-06 06:46] LABS: HEMATOCRIT 35.6 % (37.0-47.0); MEAN CELL VOLUME 101.7 fl (81.0-99.0); MEAN CORPUSCULAR HGB 31.4 pg (27.0-31.0); MEAN CORPUSCULAR HGB CONC 30.9 g/dl (33.0-37.0); MEAN PLATELET VOLUME 11.3 fl (9.6-12.3); NUCLEATED RED BLOOD CELL 0.3 % (0.0-0.0); RED CELL DISTRI WIDTH 13.6 % (0-14.5); WHITE BLOOD COUNT 10.6 10*3/uL (4.8-10.8)
[2019-06-06 06:47] LABS: PLATELET COUNT AUTOMATED 208 10*3/uL (130-400)
[2019-06-06 07:06] LABS: CREATININE 1.26 mg/dL (0.55-1.02); POTASSIUM 4.7 mmol/L (3.5-5.1)
--- NOTE | 2019-06-06 07:10 | NUR ---
NOTIFIED OF CXR RESULTS. INSTRUCTED TO CALL .
[2019-06-06 07:11] LABS: PLATELET SUFFICIENCY NORMAL (NORMAL); TOTAL CELLS COUNTED 100 #CELLS
--- NOTE | 2019-06-06 07:12 | NUR ---
NOTIFIED OF STAT CXR RESULTS AND LEAKING FROM CHEST TUBE INSERTION SITE. NO NEW ORDERS RECEIVED. STATES HE WILL LOOK AT CHEST TUBE HIMSELF.
[2019-06-06 08:00] VITALS: BP 170/64
--- NOTE | 2019-06-06 09:30 | NUR ---
Labor Operator in to see patient. She is sitting on the edge of her bed without distress noted eating breakfast. No new needs or request at this time. When medically stable she will be discharged to home with the resumption of her [facility] RN.
--- NOTE | 2019-06-06 10:26 | NUR ---
OT NOTE Attempted to see pt this A.M. for OT session and upon arrival pt had reports of increased fatigue following pt care/bath. Pt requesting to rest at this time and check back at a later time. Will continue with POC as able. TWYLA De Leon/Jose
--- NOTE | 2019-06-06 10:39 | NUR ---
PHYSICAL THERAPY Patient was sitting up on EOB with patient attendant present following patient care upon therapist arrival. Patient reports feeling very tired / weak this morning since getting cleaned up and requested to be seen after lunch for therapy vsit. Will continue per POC as tolerated this pm. Mayank Lopez, RUG INSPECTOR
--- NOTE | 2019-06-06 11:37 | NUR ---
Nutritional Support Services Note: Pt is on a cardiac diet consuming 100% of meals. Three stage II wounds noted to buttocks. CBW: 191# Ht: 5'1. Labs: albumin 2.6, glu 123, GFR 41, BUN 52. Recommended Ensure BID w/ meals to promote wound healing and increase low lab levels. Continue to encourage good PO intakes. Will follow if needed. JOSE Monatlvo procurement intern
[2019-06-06 12:00] VITALS: BP 152/56
--- NOTE | 2019-06-06 13:05 | NUR ---
PHYSICAL THERAPY Patient seen this pm 1;1 for therapy visit and was sitting up on EOB following lunch, upon therapist arrival. Patient identified by name / and presented with continuous O2-3L via NC, L side chest tube. Patient stated she was a little concerned regarding physician update of possible R lung issues, recording resting SpO2 93%, HR 68 bpm. Patient needed therapist encouragement to complete all treatment this session with OT reading assistant present for observation only. Patient performed sit to stand transfer CGA and tolerated static stand x 4 minutes, reporting no new c/o's. Patient needed v/c for purse lip breathing technique, completing second static standing trial, CGA, x 6 minutes. Patient SpO2 90%, HR 86 bpm following standing activity and returned to EOB sit as several Doctors arrived to see patient. Patient remained with call light, tray table, telephone under Doctor Supervision. Will continue per POC as tolerated, total treatment time 14 minutes. Mayank Lopez, TRAPPER BIRD
--- NOTE | 2019-06-06 13:22 | NUR ---
OT NOTE Pt was seen this P.M. 1:1 for 24 minute OT session. Upon arrival pt was sitting upright on the EOB. Pt identified by name and . Pt presented to therapy with continuous 3L-O2 via NC and chest tube in place. Pt completed multiple sit to stand transfers from bed level with CGA and use of w/w for UE support. Challenged pt's static standing tolerance needed for increased I in self care tasks and functional transfers. Pt was able to tolerate aprox 4-6 minutes before sitting due to fatigue. Pt's SpO2 started at 94% and heart rate 68 bpm and after the 4-6 minutes would drop to 90% and heart rate 86 bpm. After aprox 45 seconds of rest pt's SpO2 raised back to 93%. Sit to stand completed from bed level with CGA and use of w/w followed by standing pivot to the bedside commode with CGA. Clothing management completed with Petros and toilet hygiene completed with SBA while seated. Pt was left sitting upright on the EOB with call light in tana, tray table in place, and under doctor care for an ultrasound. Will continue with POC as able. TWYLA De Leon/Jose
[2019-06-06 16:00] VITALS: BP 146/58
[2019-06-06 20:00] VITALS: BP 150/56
--- NOTE | 2019-06-06 21:08 | NUR ---
DRAINAGE NOTED FROM CHEST TUBE SITE. DRESSING REINFORCED. BALL IN WATER SEAL CHAMBER UP TO 10 AT THIS TIME. SUCTION STILL REMAINS AT -20 PER ORDERS. WATER ELEVATED PROBABLY DUE TO BEING KNOCKED OVER DURING DAY. NOTIFIED. AWARE THAT PT ASYMPTOMATIC. INSTRUCTED TO MONITOR PATIENT AT THIS TIME. NOTIFY DR IF ANY NEW/WORSENING SYMPTOMS ARISE. NEW 24G IV SITE INITIATED IN L FOREARM PER POLICY. SPOKE TO REGARDING IV ABX SCANNED IN BY AM SHIFT RN, BUT NOT GIVEN ABX STILL HANGING IN PUMPS. PT DID NOT HAVE IV ACCESS WHEN THEY WERE SCANNED. PER , GIVE IV ABX AT THIS TIME. NEW ABX DOSE NEEDED FROM PHARMACY ABX HAVE BEEN OUT OF REFRIDGERATOR SINCE 1729. PHARMACY NOTIFIED.
--- NOTE | 2019-06-06 21:34 | NUR ---
SPOKE TO REGARDING CHEST TUBE SITE STILL LEAKING. ALSO AWARE OF NO OUTPUT IN CHEST TUBE SYSTEM. STATES IT IS FINE TONIGHT AND HE WILL REASSESS IN THE MORNING. AWARE THAT PT ASYMPTOMATIC.
[2019-06-07] VITALS: BP 150/76
--- NOTE | 2019-06-07 01:35 | NUR ---
PT ASLEEP IN BED. NO S/S OF DISTRESS NOTED. WILL MONITOR. CALL LIGHT IN REACH.
--- NOTE | 2019-06-07 04:20 | NUR ---
DRESSING TO L CHEST TUBE SITE CHANGED IT IS SOILED WITH DRAINAGE. STITCHES TO SITE INTACT BUT APPEAR LOOSE. PT TOLERATED DSG CHANGE WELL. NO DRAINAGE NOTED IN CHEST TUBE SYSTEM THROUGHOUT NIGHT. SYSTEM CONNECTED TO WALL SUCTION PER ORDER. WILL MONITOR. PT LEFT SITTING UP ON SIDE OF BED. CALL LIGHT IN REACH. WILL MONITOR.
--- NOTE | 2019-06-07 05:04 | NUR ---
PT MEDICATED WITH PO TYLENOL FOR C/O PAIN NEAR CHEST TUBE SITE/L SIDE/RIBS RATED 8/10. WILL MONITOR. CALL LIGHT IN REACH.
--- NOTE | 2019-06-07 06:03 | NUR ---
PATIENT WANTS TO FOLLOW UP WITH PCP NOHELIA DOBSON FOR WOUND CARE ONCE SHE IS DISCHARGED FROM HOSPITAL.
[2019-06-07 06:22] LABS: HEMATOCRIT 39.2 % (37.0-47.0); HEMOGLOBIN 11.9 g/dl (12.0-16.0); MEAN CORPUSCULAR HGB 30.7 pg (27.0-31.0); MEAN CORPUSCULAR HGB CONC 30.4 g/dl (33.0-37.0); MEAN PLATELET VOLUME 11.1 fl (9.6-12.3); NUCLEATED RED BLOOD CELL 0.1 10*3/uL (0.0-0.0); NUCLEATED RED BLOOD CELL 0.5 % (0.0-0.0); PLATELET COUNT AUTOMATED 246 10*3/uL (130-400); RED BLOOD COUNT 3.88 10*6/uL (4.10-5.10); RED CELL DISTRI WIDTH 13.8 % (0-14.5); WHITE BLOOD COUNT 11.7 10*3/uL (4.8-10.8)
[2019-06-07 06:31] LABS: ALBUMIN 2.8 gm/dl (3.1-4.5); CREATININE 1.17 mg/dL (0.55-1.02); POTASSIUM 4.3 mmol/L (3.5-5.1); TOTAL PROTEIN 6.6 gm/dL (6.4-8.2)
[2019-06-07 06:54] LABS: TOTAL CELLS COUNTED 100 #CELLS
[2019-06-07 06:55] LABS: PLATELET SUFFICIENCY NORMAL (NORMAL); POLYCHROMASIA SLIGHT; ROULEAUX SLIGHT
[2019-06-07 06:57] LABS: ATYPICAL LYMPHS 1 % (0-0)
[2019-06-07 08:00] VITALS: BP 148/72; BP 194/68
--- NOTE | 2019-06-07 08:00 | NUR ---
PHYSICAL THERAPYP Patient seen this am 1;1 for therapy visit and was sitting up on EOB upon therapist arrival. Patient identified by name / and presented with continuos O2-3L via NC, including L side chest tube. Patient reports not feeling as congested and with no coughing episodes this session. OT certified ophthalmic surgical assistant was also present for observation only as patient performed seated B LE therex, all planes, 2 x 10 reps each to increase LE strength. Patient then completed several sit to stand transfers, MIN/CGA with use of wh walker standing support, demonstrating increased fatigue and SpO2 / HR remaining WFL's throughout all treatment. Patient returned to EOB sit and remained with call light, tray table, and telephone as breakfast arrived. Will continue per POC as tolerated, total treatment time 16 minutes. Mayank Lopez, FILM SPOOLER
--- NOTE | 2019-06-07 08:12 | NUR ---
OT NOTE Pt was seen this A.M. 1:1 for 18 minute OT session. Upon arrival pt was supine in bed. Pt identified by name and and had no complaints at this time. Pt presented to therapy with continuous 3L-O2 via NC and chest tube in place which she remained on throughout the entire session. Pt transferred supine to sit EOB with SBA. While sitting EOB pt donned B socks with Petros for inital start over her toes. Multiple sit to stand transfers were completed from bed level with CGA and use of w/w, challenged pt's static standing tolerance needed for increased I in self care tasks and functional transfers. Pt was able to tolerate aprox 5-6 minutes at a time before sitting due to fatigue. Pt was left sitting upright on the EOB with call light in hand, tray table in place, and phone in reach. Continue with rec D/C plan to home with home health. TWYLA De Leon/Jose
--- NOTE | 2019-06-07 09:59 | NUR ---
PT MEDICATED WITH PRN NRCO FOR C/O PAIN AT CHEST TUBE INSERTION SITE. PT RATES PAIN 11/05. WILL MONITOR.
[2019-06-07 12:00] VITALS: BP 133/53
--- NOTE | 2019-06-07 12:40 | NUR ---
OT NOTE Pt was seen this P.M. 1:1 for second OT session consisting of 15 minutes. Upon arrival pt was sitting upright on the EOB. Pt identified by name and and had complaints of 8/10 pain at chest tube site. Pt presented to therapy with continuous 3L-O2 via NC which she remained on throughout the entire session. Pt completed sit to stand from bed level with CGA followed by standing pivot to the bedside commode with CGA WEIGHT CALCULATOR. Clothing management completed with CGA and toilet hygiene completed with SBA while seated. Stading pivot then completed back to the EOB with CGA WEIGHT CALCULATOR. Pt was left sitting upright on the EOB with call light in hand, tray table in place, and phone in reach. Continue with rec D/C plan to SNF. TWYLA De Leon/Jose
[2019-06-07 16:00] VITALS: BP 158/60
[2019-06-07 20:00] VITALS: BP 151/69
--- NOTE | 2019-06-07 22:54 | NUR ---
CALL MADE TO DR CHANEL CELL PHONE AT THIS TIME REGARDING CONSULT, NO ANSWER. MESSAGE LEFT. WILL REATTEMPT CALL
[2019-06-08] VITALS: BP 145/60
--- NOTE | 2019-06-08 03:00 | NUR ---
SLEEPING. NO ACUTE DISTRESS NOTED.
--- NOTE | 2019-06-08 03:45 | NUR ---
24 HR chart check completed.
--- NOTE | 2019-06-08 05:56 | NUR ---
CHEST TUBE INSERTION SITE BANDAGE WAS WET BUT NOT SATURATED AND CHANGED. CHEST TUBE HAS CONTINUED TO SUCTION WITH NO DRAINAGE IN CHAMBER AND TUBING HAS THICK PINK TINGED DRAINAGE WITHIN TUBING. PT. TOLERATED WELL.
[2019-06-08 06:22] LABS: HEMATOCRIT 38.5 % (37.0-47.0); HEMOGLOBIN 11.8 g/dl (12.0-16.0); MEAN CELL VOLUME 100.5 fl (81.0-99.0); MEAN CORPUSCULAR HGB 30.8 pg (27.0-31.0); MEAN CORPUSCULAR HGB CONC 30.6 g/dl (33.0-37.0); MEAN PLATELET VOLUME 11.1 fl (9.6-12.3); NUCLEATED RED BLOOD CELL 0.1 10*3/uL (0.0-0.0); NUCLEATED RED BLOOD CELL 0.5 % (0.0-0.0); PLATELET COUNT AUTOMATED 259 10*3/uL (130-400); RED BLOOD COUNT 3.83 10*6/uL (4.10-5.10); RED CELL DISTRI WIDTH 13.7 % (0-14.5); WHITE BLOOD COUNT 11.1 10*3/uL (4.8-10.8)
[2019-06-08 06:50] LABS: POTASSIUM 4.4 mmol/L (3.5-5.1)
[2019-06-08 07:01] LABS: ALBUMIN 2.6 gm/dl (3.1-4.5); CREATININE 1.1 mg/dL (0.55-1.02); TOTAL PROTEIN 5.7 gm/dL (6.4-8.2)
[2019-06-08 07:05] LABS: ATYPICAL LYMPHS 1 % (0-0); PLATELET SUFFICIENCY NORMAL (NORMAL); TOTAL CELLS COUNTED 100 #CELLS
[2019-06-08 08:00] VITALS: BP 160/70
--- NOTE | 2019-06-08 09:00 | NUR ---
Pet Store Merchandiser in to see patient. Dr. Dai and staff are currently in the room. Will follow up at a later time.
--- NOTE | 2019-06-08 09:05 | NUR ---
PHYSICAL THERAPY Patient seen this am 1;1 for therapy visit and was sitting up on EOB upon therapist arrival. Patient identified by name / and was very pleasant, reporting no new c/o's at this time. Patient presented with continuos O2-3L via NC and L side chest tube and reviewed ex program. Patient performed seated B LE therex, all planes, 2 x 10 reps each to increase LE strength. Following ex Physician and Nurse arrived to see patient as patient remained seated EOB with call light, tray table and telephone. Will continue per POC as tolerated, total treatment time 14 minutes. Mayank Lopez, MINING MACHINERY ASSEMBLER
--- NOTE | 2019-06-08 11:27 | NUR ---
OT NOTE Pt was seen this A.M. 1:1 for 20 minute OT session. Upon arrival pt was sitting upright on the EOB. Pt identified by name and and had no complaints at this time. Pt presented to therapy with no chest tube and on 3L-O2 via NC which she remained on throughout the entire session. Sit to stand completed from bed level with CGA and use of w/w for UE support. Functional mobility was then completed to the bathroom with CGA and use of w/w, with one standing rest break due to quick onset of fatigue. There she transferred on/off standard commode with CGA and use of grab bar for UE support. Clothing management completed with CGA and toilet hygiene completed with distant supervision while seated. Pt then stood sink side while washing her hands and completing hair care with CGA. Functional mobility completed back to the EOB where she was left sitting upright with call light in hand, tray table in place, and phone in reach. Continue with POC as able. TWYLA De Leon/Jose
[2019-06-08 12:00] VITALS: BP 140/50
--- NOTE | 2019-06-08 13:22 | NUR ---
Contour Stitcher in to see patient. She is sitting on the edge of her bed. Discussed home needs and she would like to see about a hospital bed. Notified hospitalist nurse director. She would also like a BSC. Informed she or her family could go to [facility] in [place] and shrimp picker a BSC but it doesn't come with a bucket they would need to purchase a bucket and she verbalized an understanding. When medically stable she will be discharged to home with the resumption of her [facility] RN.
--- NOTE | 2019-06-08 15:15 | NUR ---
Faxed hospital bed to [facility]
[2019-06-08 16:00] VITALS: BP 126/54
--- NOTE | 2019-06-08 19:05 | NUR ---
REPORT OBTAINED FROM PRIOR NURSE. PATIENT IS RESTING IN BED QUIETLY. PATIENT VOICED NO COMPLAINTS. BED IS LOCKED IN LOWEST POSITION. CALL LIGHT WITHIN REACH
[2019-06-08 20:00] VITALS: BP 144/52
[2019-06-09] VITALS: BP 146/54
--- NOTE | 2019-06-09 01:38 | NUR ---
DRESSING CHANGE COMPLETED TO WHERE CHEST TUBE WAS REMOVED, DRESSING WAS SATURATED WITH CLEAR LIQUID. WILL CONTINUE TO MONITOR
[2019-06-09 07:20] LABS: HEMATOCRIT 35.1 % (37.0-47.0); HEMOGLOBIN 10.9 g/dl (12.0-16.0); MEAN CELL VOLUME 100.9 fl (81.0-99.0); MEAN CORPUSCULAR HGB 31.3 pg (27.0-31.0); MEAN CORPUSCULAR HGB CONC 31.1 g/dl (33.0-37.0); MEAN PLATELET VOLUME 11.2 fl (9.6-12.3); NUCLEATED RED BLOOD CELL 0.2 % (0.0-0.0); PLATELET COUNT AUTOMATED 212 10*3/uL (130-400); RED BLOOD COUNT 3.48 10*6/uL (4.10-5.10); RED CELL DISTRI WIDTH 13.8 % (0-14.5); WHITE BLOOD COUNT 9.7 10*3/uL (4.8-10.8)
[2019-06-09 07:49] LABS: ALBUMIN 2.4 gm/dl (3.1-4.5); BUN 38 mg/dl (7-24); CHLORIDE 99 mmol/L (98-107); CREATININE 1.04 mg/dL (0.55-1.02); PLATELET SUFFICIENCY NORMAL (NORMAL); POTASSIUM 4.4 mmol/L (3.5-5.1); SGOT/AST 27 IU/L (3-35); SGPT/ALT 67 U/L (12-78); SODIUM 136 mmol/L (136-145); TOTAL CELLS COUNTED 100 #CELLS
[2019-06-09 07:50] LABS: ALKALINE PHOSPHATASE 69 U/L (45-117); TOTAL PROTEIN 5.6 gm/dL (6.4-8.2)
[2019-06-09 08:00] VITALS: BP 160/72
--- NOTE | 2019-06-09 08:00 | NUR ---
PATIENT AWAKE, ALERT AND ORIENTED SITTING ON SIDE OF BED. NO STATED COMPLAINTS. NO S/S OF DISTRESS OR SOB NOTED. BED IN LOWEST LOCKED POSITION AND CALL LIGHT WITHIN REACH. WILL CONTINUE TO MONITOR.
--- NOTE | 2019-06-09 08:25 | NUR ---
PHYSICAL THERAPY Patient seen this am 1;1 for therapy visit and was sitting up on EOB upon therapist arrival. Patient identified by name / , reporting no new c/o's and was very happy her chest tube was removed yesterday. Patient transfers sit to stand CGA and ambulates with use of wh walker, CGA, 50'x 1, demonstrating very slow micheline, decreased stride and increased fatigue > 30 feet. Patient needed brief standing rest break < 20 seconds to complete all gait ex and returned to EOB sit as patient attendant arrived. Patient remained EOB under attendant Supervision and will continue per POC as tolerated, total treatment time 14 minutes. Mayank Lopez, TOPPER PRESS OPERATOR AUTOMATIC
--- NOTE | 2019-06-09 09:00 | NUR ---
Bobbin Winder Tender in to see patient. No new needs or request at this time. When medically stable she will be discharged to home with the resumption of her [facility] RN.
--- NOTE | 2019-06-09 10:10 | NUR ---
PT'S IV LEAKING AT SITE. LISA LUJAN STARTED NEW IV.
--- NOTE | 2019-06-09 11:20 | NUR ---
OT NOTE PATIENT SEEN 1:1 OT THIS DATE 23 MINUTES. PATIENT IDENTIFIED BY NAME AND DATE OF . PATIENT COMPLETED SUPINE TO SIT EOB MIN A USE RAIL. COMPLETED SIT TO STAND FROM BED CGA VERBAL CUES PROPER HAND PLACEMENT. PATIENT COMPLETED FUNCTIONAL AMBULATION USE FWW TO BATHROOM CGA. COMPLETED GROOMING STANDING AT SINK CGA. COMPLETED LB BATHING CGA AFTER HEATH STANDING WASH BOTTOM AND MOJGAN CARE WITH PATIENT EDUCATED BENEFITS AND ENERGY CONSERVATION COMPLETING SEATED FOR FALL PREVENTION. PATIENT REQUIRED MIN A TO DOFF UNDER PANTS SAFELY OVER FEET.PATIENT COMPLETED FUNCTIONAL AMBULATION USE FWW TO BED CGA. 02 SATS 94 % 2 L02 THIS DATE. CONTINUE TOWARDS PLAN OF CARE. PATIENT IN CARE OF AIDE END OF SESSION. CONTINUE TOWARDS PLAN OF CARE. KALA WAKEFIELD/Jose
--- NOTE | 2019-06-09 11:26 | NUR ---
Discussed discharge planning with patient. She stated she feels like she needs to go to snf for some short term rehab prior to going home. She was unsure of the snfs in her area. Provided a list and stated since she lives in [facility] the two closest facilities would be [facility] or [facility]. She requested [facility] in [facility]. contacted [facility] and faxed referral for review. Waiting on acceptance.
[2019-06-09 12:00] VITALS: BP 137/70
--- NOTE | 2019-06-09 13:11 | NUR ---
PATIENT SITTING IN CHAIR AT BEDSIDE. NO STATED COMPLAINTS. NO S/S OF SOB OR DISTRESS NOTED. CALL LIGHT WITHIN REACH AND ENCOURAGED.
--- NOTE | 2019-06-09 13:16 | NUR ---
Faxed home health resumption order to [facility]
--- NOTE | 2019-06-09 15:16 | NUR ---
OCCUPATIONAL THERAPY CO-SIGN I approve of the Occupational Therapy notes written above. CONNER SIERRA OTR/Jose
[2019-06-09 16:00] VITALS: BP 145/77
--- NOTE | 2019-06-09 17:42 | NUR ---
PT SITTING ON SIDE OF BED, TALKING ON PHONE. NO STATED COMPLAINTS AT THIS TIME. NO S/S OF DISTRESS. RESPIRATIONS ARE EASY AND REGULAR. NO SOB NOTED. SPEECH IS CLEAR AND APPROPRIATE. SHE DENIES HAVING ANY PAIN AT THIS TIME BED IN LOWEST LOCKED POSITION AND CALL LIGHT WITHIN REACH.
[2019-06-09 20:00] VITALS: BP 129/47
[2019-06-09 22:00] VITALS: BP 129/47
[2019-06-10] VITALS: BP 126/55
[2019-06-10 08:00] VITALS: BP 130/55
[2019-06-10 08:30] VITALS: BP 136/50
--- NOTE | 2019-06-10 10:00 | NUR ---
PT DRESSING ON BUTTOCKS CHANGED 06/07/16, PT DOES NOT WANT IT CHANGED AT THIS TIME, SITTING AT BEDSIDE.
--- NOTE | 2019-06-10 10:23 | NUR ---
Shift chart check completed.
[2019-06-10 12:00] VITALS: BP 135/60
--- NOTE | 2019-06-10 12:20 | NUR ---
PHYSICAL THERAPY Patient sitting EOB upon arrival. Patient identified by name and . Patient provided informed consent for session this date. STS tranfer EOB->FWW requiring SBA. Performance of gait training- patient ambulated with use of FWW and CGA, over level surfaces- for strength, endurance and balance ~50'x2, incorporating 90 and 190 degree directional changes. Patient benefits from occasional cues for safety with walker proximity/management and postural awareness. While ambulating, patient voiced concern about B LE "weakness" and needing to strengthen them. GLOBAL COMMODITY MANAGER educated patient on seated/supine exercises to perform while in room. Patient peformed seated B LE ther-ex, for strength, endurance and ROM- marches, LAQ (5 sec holds), hip ABD/ADD, ankle PF/DF 2x10 reps. Cues and supervision for technique, pacing and progression of exercises throughout. Patient voiced no complaints this date. STS transfers EOB x 5 reps for functional strengthening completed requiring SBA with cues for technique and safety. Patient seated EOB at session end with call light and tray table within reach. [place] GLOBAL COMMODITY MANAGER
[2019-06-10 16:00] VITALS: BP 122/72
--- NOTE | 2019-06-10 17:25 | NUR ---
WOUND DRESSING TO BUTTOCKS CHANGED PER ORDER
[2019-06-10 20:00] VITALS: BP 126/57
[2019-06-11] VITALS: BP 139/56
[2019-06-11 07:00] LABS: HEMATOCRIT 37.9 % (37.0-47.0); HEMOGLOBIN 11.7 g/dl (12.0-16.0); MEAN CELL VOLUME 100.8 fl (81.0-99.0); MEAN CORPUSCULAR HGB 31.1 pg (27.0-31.0); MEAN CORPUSCULAR HGB CONC 30.9 g/dl (33.0-37.0); MEAN PLATELET VOLUME 11.5 fl (9.6-12.3); PLATELET COUNT AUTOMATED 256 10*3/uL (130-400); RED BLOOD COUNT 3.76 10*6/uL (4.10-5.10); RED CELL DISTRI WIDTH 13.9 % (0-14.5); WHITE BLOOD COUNT 11.5 10*3/uL (4.8-10.8)
[2019-06-11 07:28] LABS: CREATININE 1.1 mg/dL (0.55-1.02); POTASSIUM 4.6 mmol/L (3.5-5.1)
[2019-06-11 07:57] LABS: PLATELET SUFFICIENCY NORMAL (NORMAL); POLYCHROMASIA SLIGHT; ROULEAUX SLIGHT; TOTAL CELLS COUNTED 100 #CELLS
[2019-06-11 08:00] VITALS: BP 156/69
--- NOTE | 2019-06-11 08:00 | NUR ---
ASSESSMENT COMPLETE, PT NC AT 2 LITERS. PT HAS D/I DRESSING ON SIDE POST CHEST TUBE REMOVAL ON 06/08/19. DRESSING TO WOUNDS ON BUTTOCKS DRY/INTACT, CHANGED 06/09. PT HAS NO REQUESTS OR NEEDS AT THIS TIME. SITTING SIDE OF BED, EATING BREAKFAST.
--- NOTE | 2019-06-11 09:55 | NUR ---
PT HAD OXYGEN OFF, ROOM AIR SAO2 91-92%, NC 2 LITERS REAPPLIED.
[2019-06-11 12:00] VITALS: BP 111/72
[2019-06-11 16:00] VITALS: BP 125/64
[2019-06-11 20:00] VITALS: BP 144/67
[2019-06-12] VITALS: BP 138/60
[2019-06-12 06:17] LABS: HEMATOCRIT 34.8 % (37.0-47.0); HEMOGLOBIN 10.9 g/dl (12.0-16.0); MEAN CORPUSCULAR HGB 31.3 pg (27.0-31.0); MEAN CORPUSCULAR HGB CONC 31.3 g/dl (33.0-37.0); MEAN PLATELET VOLUME 11.5 fl (9.6-12.3); PLATELET COUNT AUTOMATED 234 10*3/uL (130-400); RED BLOOD COUNT 3.48 10*6/uL (4.10-5.10)
[2019-06-12 06:39] LABS: CREATININE 1.2 mg/dL (0.55-1.02); POTASSIUM 4.2 mmol/L (3.5-5.1)
[2019-06-12 06:48] LABS: TOTAL CELLS COUNTED 100 #CELLS
[2019-06-12 06:49] LABS: PLATELET SUFFICIENCY NORMAL (NORMAL); POLYCHROMASIA SLIGHT; ROULEAUX SLIGHT; SCHISTOCYTES FEW
--- NOTE | 2019-06-12 07:05 | NUR ---
ARRIVED ON SHIFT, INTRODUCED TO PATIENT, BED IN LOW POSITION, WHEEL LOCKS ENGAGED, SIDE RAILS UP X 2 FOR TURNING AND REPOSITIONING, CALL LIGHT WITHIN REACH, NO NEEDS VOICED AT THIS TIME WHITE BOARD UPDATED.
[2019-06-12 08:00] VITALS: BP 136/80
--- NOTE | 2019-06-12 08:41 | NUR ---
Shift chart check completed.
--- NOTE | 2019-06-12 08:50 | NUR ---
OT NOTE Pt was seen this A.M. 1:1 for 40 minute OT session. Upon arrival pt was supine in bed. Pt identified by name and and had no complaints at this time. Pt presented to therapy with continuous 2L-O2 via NC which she remained on throughout the entire session. Pt donned B socks with supervision while seated. Sit to stand completed from bed level with CGA and use of w/w for UE support. Functional mobility was then completed to the bathroom with SBA and use of w/w. There she transferred on/off standard commode with SBA and use of grab bar for UE support. Clothing management completed with CGA for safety and toilet hygiene completed with supervision while seated. Pt then stood sink side while completing UB bathing with SBA. Pt then sat while completing LB bathing and donning pants and underpants with supervision. Hair and oral care completed with SBA while standing sink side. Functional mobility was then completed back to the EOB where she was left sitting upright with call light in hand, tray table in place, and phone in reach. Throughout all tasks pt's SpO2 stayed within functional limits. Continue with POC as able. TWYLA De Leon/Jose
--- NOTE | 2019-06-12 09:00 | NUR ---
Baffle Mounter in to see patient. She is sitting on the edge of her bed without distress noted getting ready to work with OT. Discussed short term SNF and she remains agreeable. Waiting for acceptance to [facility]. Explained her walker, nebulizer, and hospital bed requests have been placed through [facility] and they will be contacting her once she is discharged from the facility. She verbalized an understanding. kit planner following for SNF referral.
--- NOTE | 2019-06-12 10:10 | NUR ---
Patient was not accepted to [facility], they are unable to meet her needs at this time. Referral faxed to [facility]> Waiting on review/acceptance.
[2019-06-12 12:00] VITALS: BP 123/56
--- NOTE | 2019-06-12 13:56 | NUR ---
Director Of Strategic Sales in to see patient about not qualifying for SNF. She states she feels safe going home. Discussed about her hospital bed and walker for home. She had [facility] and would like to resume their services. Hospitalist nurse director notified. She states she would rather go home today since she has a ride.
--- NOTE | 2019-06-12 14:05 | NUR ---
PHYSICAL THERAPY Patient seen this pm 1:1 for therapy visit and was sitting up on EOB upon therapist arrival. Patient identified by name / and presented with continuous O2-2L via NC, recording SpO2 92%, HR 86 bpm. Patient transfers sit to stand CGA and ambulates with use of wh walker, CGA, 50'x 2, demonstrating very slow micheline, decreased stride and very cautious gait pattern for fear of falling. Patient returned to EOB sit with increased fatigue and remained with call light, tray table and telephone. Will continue per POC as tolerated, total treatment time 16 minutes. Mayank Lopez, COURT SUPERVISOR
[2019-06-12] MEDS ORDERED: LASIX20 MG PO (14:16)
[2019-06-12] MEDS ORDERED: PREDNISONE10 MG PO (14:16)
--- NOTE | 2019-06-12 14:44 | NUR ---
Faxed home health care resumption to [facility]
--- NOTE | 2019-06-12 16:30 | NUR ---
Discharge instructions reviewed with patient. Patient receptive and verbalizes understanding. Follow-up care arranged. Written instructions given to patient, IV removed,Patient taken out vis w/SREEDHAR Hua
--- NOTE | 2019-06-13 07:23 | NUR ---
PHYSICAL THERAPY CO-SIGN I approve of the Physical Therapy notes written above. Ioana Hernandez PT
--- NOTE | 2019-06-13 10:04 | NUR ---
OCCUPATIONAL THERAPY CO-SIGN I approve of the Occupational Therapy notes written above. Heike Delgado, OTR/L
--- NOTE | 2019-06-14 07:14 | NUR ---
LATE ENTRY PATIENT REFUSED PHOTOS OF WOUNDS TO BUTTOCKS.
== END 2019-06-12 16:30 | disposition home health service (06) | DRG 291 ==
LOC: ED 15:06 → EDHOLD 18:13 → 4E 18:13 → ICCU 18:13 → 4E 18:34 → ICCU 19:19 → 4E 06-05 19:41
PROVIDERS: Emergency Medicine; Family Medicine; Internal Medicine; Internal Medicine Critical Care Medicine; Internal Medicine Nephrology; Nurse Practitioner Family; Student in an Organized Health Care Education/Training Program; ADMIT Internal Medicine
PROC: 0W9B30Z Drainage of Left Pleural Cavity with Drainage Device, Percutaneous Approach (ICD-10-PCS; principal; 2019-06-02)
DX: I13.0 Hypertensive heart and chronic kidney disease with heart failure and stage 1 through stage 4 chronic kidney disease, or unspecified chronic kidney disease (principal); I50.33 Acute on chronic diastolic (congestive) heart failure; J96.22 Acute and chronic respiratory failure with hypercapnia; J96.21 Acute and chronic respiratory failure with hypoxia; J15.9 Unspecified bacterial pneumonia; E44.0 Moderate protein-calorie malnutrition; J91.8 Pleural effusion in other conditions classified elsewhere; J44.0 Chronic obstructive pulmonary disease with (acute) lower respiratory infection; N17.9 Acute kidney failure, unspecified; J44.1 Chronic obstructive pulmonary disease with (acute) exacerbation; N18.3 Chronic kidney disease, stage 3 (moderate); D72.829 Elevated white blood cell count, unspecified; D72.89 Other specified disorders of white blood cells; R73.03 Prediabetes; R91.8 Other nonspecific abnormal finding of lung field; F17.200 Nicotine dependence, unspecified, uncomplicated; R00.1 Bradycardia, unspecified; G47.33 Obstructive sleep apnea (adult) (pediatric); D75.89 Other specified diseases of blood and blood-forming organs; D72.810 Lymphocytopenia; E87.5 Hyperkalemia; E83.41 Hypermagnesemia; R76.8 Other specified abnormal immunological findings in serum; R74.0 Nonspecific elevation of levels of transaminase and lactic acid dehydrogenase [LDH]; R73.9 Hyperglycemia, unspecified; Z88.1 Allergy status to other antibiotic agents; Z91.013 Allergy to seafood; Z82.49 Family history of ischemic heart disease and other diseases of the circulatory system; Z83.3 Family history of diabetes mellitus; Z84.89 Family history of other specified conditions; Z79.899 Other long term (current) drug therapy; Z79.82 Long term (current) use of aspirin; Z68.35 Body mass index [BMI] 35.0-35.9, adult

== ENCOUNTER 2019-07-06 15:45 | Inpatient (IN) | payer MEDICARE, OTHER ==
[~2019-07-06] VITALS: Ht 152.4 cm; Wt 82.2 kg
[~2019-07-06 15:45] MED LIST changes: +MIRALAX17 GM PO; +NICODERM CQ1 EAC1 TD
[2019-07-06 15:53] VITALS: BP 128/72
--- NOTE | 2019-07-06 16:09 | NUR ---
PT STATES SHE IS ON O2 AT 2LPM AT ALL TIMES, HOWEVER WHEN PLACING PT IN BED IN ROOM 15 AND WAS PLACING PT ON THE WALL O2 IT WAS DISCOVERED PT WAS ON HER PERSONAL TANK O2 AT 6 LPM PT WAS REDUCED TO 4LPM AND PT NURSE WAS NOTIFIED TO REEVAULATE SAT LEVELS AND ADJUST ACCORDINGLY
--- NOTE | 2019-07-06 16:26 | NUR ---
PT IN BED RESTING. DECREASED O2 TO 3 LITERS. WILL MONITOR O2 SAT. SAFETY PRECAUTIONS INTACT
[2019-07-06 16:31] LABS: BASO % 0.5 % (0.0-1.0); EOS # 0.3 10*3/uL (0.0-0.4); HEMATOCRIT 31.5 % (37.0-47.0); LYMPH # 0.6 10*3/uL (1.3-4.4); LYMPH % 7.3 % (27.0-41.0); MEAN CELL VOLUME 101.6 fl (81.0-99.0); MEAN CORPUSCULAR HGB 31.9 pg (27.0-31.0); MEAN CORPUSCULAR HGB CONC 31.4 g/dl (33.0-37.0); MEAN PLATELET VOLUME 10.4 fl (9.6-12.3); MONO # 0.6 10*3/uL (0.1-1.0); MONO % 6.6 % (3.0-9.0); NEUT # 6.9 10*3/uL (2.3-7.9); NEUT % 80.7 % (47.0-73.0); PLATELET COUNT AUTOMATED 193 10*3/uL (130-400); RED CELL DISTRI WIDTH 15.4 % (0-14.5); WHITE BLOOD COUNT 8.6 10*3/uL (4.8-10.8)
[2019-07-06 16:42] LABS: ACT PARTIAL THROMBO TIME 24.6 SECONDS (20.0-32.1); INTERNATIONAL NORM RATIO 0.9 (2.0-3.5)
[2019-07-06 16:50] LABS: ALBUMIN 2.4 gm/dl (3.1-4.5); CREATININE 1.34 mg/dL (0.55-1.02); POTASSIUM 3.8 mmol/L (3.5-5.1); TOTAL PROTEIN 6.5 gm/dL (6.4-8.2); TROPONIN I 0.024 ng/ml (<0.045)
[2019-07-06 16:59] VITALS: BP 169/67
--- NOTE | 2019-07-06 17:05 | NUR ---
PT RESTING COMFORTABLY. SAFETY PRECAUTIONS INTACT. O2 SAT IS 94 ON 3 LITERS VIA NASAL CANNULA.
[2019-07-06 17:44] VITALS: BP 160/64
[2019-07-06 18:26] VITALS: BP 158/62
[2019-07-06 19:02] VITALS: BP 137/71
--- NOTE | 2019-07-06 19:41 | NUR ---
PT RESTING COMFORTABLY IN BED. SAFETY PRECAUTIONS INTACT. CALL LIGHT WITHIN REACH.
--- NOTE | 2019-07-06 20:09 | NUR ---
OTHER NURSE JUST RETURNED FROM TAKING PT UPSTAIRS. CALLED NURSE AND SHE WILL BE READY FOR HER IS 5 MIN.
[2019-07-06 20:20] VITALS: BP 131/63
--- NOTE | 2019-07-06 20:20 | NUR ---
A 84, admitted to 4E, under the services of DELMA Lema DO with a diagnosis of ACUTE HEART FAILURE, LBBB. Chief complaint is DYSPNEA. Patient arrived via stretcher from ER. Monitor applied. Initial assessment completed. Vital signs taken and recorded. DELMA LEMA DO notified of admission to the unit. Orders received. See assessment for past medical history, medications and allergies. Patient and/or family oriented to unit. visitation policy reviewed. Clothing/patient valuable form completed. AMANDA HERNANDEZ A
[2019-07-07] VITALS: BP 135/68
--- NOTE | 2019-07-07 04:02 | NUR ---
ZAFAR FORMAN [id number] Please refer to the physician's history and physical for past medical history, comorbid conditions, and allergies. Diagnosis: ACUTE HEART FAILURE,LBBB Michael Score: 17,AT RISK WOUND DESCRIPTIONS: Wound Number: 1 Location of the wound: intergluteal fold and left buttocks Type of wound: fungal Thickness: Partial Size: 8.5cm x 17.0cm x 0.1cm Tunneling: none Undermining: none Sinus Tract: none Presence of Exudate: none Amount: None Color: Red Odor: None Periwound Skin Appearance: Normal Wound edges: approximated Pain (associated with wound): none at time of assessment How does patient state this happened? pt unsure how this happened Surface the patient is resting on: Isoflex SKIN PREVENTION RECOMMENDATION: 1. Pressure redistribution support surface as appropriate 2. Elevate heels 3. Remove boots/TEDS every shift and reapply 4. Head of bed 30 degrees as tolerated 5. Assess nutrition and hydration 6. Manage moisture 7. Avoid the use of containment devices while in bed 8. Use absorptive products on surfaces limit layers of linens on bed 9. Turn and reposition every 1-2 hours in bed and every 1 hour in chair as tolerated 10. Weight shifts every 15 minutes while up in chair 11. Offloading with pillows or device to keep heels elevated off bed 12. Monitor skin at least every shift 13. Inspect under medical devices twice a day WOUND TREATMENT RECOMMENDATIONS: Cleanse intergluteal fold and left buttocks with soap and water and apply nystatin cream bid. Wheelchair cushion when oob.
[2019-07-07 06:04] LABS: BASO # 0.1 10*3/uL (0.0-0.1); BASO % 0.5 % (0.0-1.0); EOS # 0.3 10*3/uL (0.0-0.4); EOS % 2.9 % (1.0-4.0); HEMATOCRIT 35.2 % (37.0-47.0); LYMPH # 0.8 10*3/uL (1.3-4.4); LYMPH % 8.2 % (27.0-41.0); MEAN CORPUSCULAR HGB 31.3 pg (27.0-31.0); MEAN CORPUSCULAR HGB CONC 30.7 g/dl (33.0-37.0); MEAN PLATELET VOLUME 10.7 fl (9.6-12.3); MONO # 0.6 10*3/uL (0.1-1.0); MONO % 5.4 % (3.0-9.0); NEUT # 8.4 10*3/uL (2.3-7.9); NEUT % 81.8 % (47.0-73.0); PLATELET COUNT AUTOMATED 242 10*3/uL (130-400); RED BLOOD COUNT 3.45 10*6/uL (4.10-5.10); RED CELL DISTRI WIDTH 15.4 % (0-14.5); WHITE BLOOD COUNT 10.2 10*3/uL (4.8-10.8)
[2019-07-07 06:21] LABS: ALBUMIN 2.7 gm/dl (3.1-4.5); POTASSIUM 3.5 mmol/L (3.5-5.1); TOTAL PROTEIN 7.1 gm/dL (6.4-8.2)
[2019-07-07 06:29] LABS: CREATININE 1.24 mg/dL (0.55-1.02); FREE T4 1.21 ng/dl (0.76-1.46); PHOSPHOROUS 4.2 mg/dL (2.5-4.9); THYROID STIM HORMONE (HS) 1.17 uIU/ml (0.358-4.75)
[2019-07-07 06:34] LABS: ACT PARTIAL THROMBO TIME 25.6 SECONDS (20.0-32.1); INTERNATIONAL NORM RATIO 0.9 (2.0-3.5)
--- NOTE | 2019-07-07 06:59 | NUR ---
DR. CHANEL CONSULTED AT THIS TIME.
--- NOTE | 2019-07-07 07:00 | NUR ---
CONSULT PAGE PLACED TO DR. MERCADO. AWAITING CALL BACK.
--- NOTE | 2019-07-07 07:30 | NUR ---
PT RESTING IN BED. VOICES NO CONCERNS AT THIS TIME. RESPS EASY AND NON LABORED. NO S/S OF DISTRESS NOTED. OXYGEN INTACT. VSS. WHITE BOARD UPDATED. CALL LIGHT WITHIN REACH.
--- NOTE | 2019-07-07 07:34 | NUR ---
SPOKE WITH DR CARVER REGARDING INSULIN COVERAGE. STATES PT DOES NOT NEED BLOOD SUGARS CHECKED NOR INSULIN COVERAGE. WILL D/C AT THIS TIME PER HER VERBAL ORDER.
--- NOTE | 2019-07-07 07:41 | NUR ---
PHYSICAL THERAPY Screen and PT eval received will follow thank you Ioana Hernandez PT
[2019-07-07 08:00] VITALS: BP 136/70
--- NOTE | 2019-07-07 08:10 | NUR ---
Patient Escort in to talk to patient. Patient states lives at home alone with her son and [id number] living next door. There are 0 steps in the home. Physician: Tejas Holman Pharmacy: [facility] services: has had [facility] previously Patient's level of ADLs: MINIMAL ASSIST Patient has working utilities: yes DME: walker, O2 @ 2L nc HS, portable O2 tanks, nebulizer, O2 supplier [facility] Follow-up physician's appointment after d/c: will be made by the hospitalist nurse director upon discharge Does patient want to access PORTAL?: no Discharge plan discussed with patient. She lives at home alone with her family checking in on her. She is independent in her ADLs and ambulates with a walker. Discussed short term SNF and she is agreeable. When provided with a list of facilities she chose [facility]. automotive tire worker notified. JAVAN LEY
--- NOTE | 2019-07-07 08:14 | NUR ---
Occupational therapy and nursing screen received. Will follow up with the patient. Thank you. Heike Delgado, OTR/L
--- NOTE | 2019-07-07 08:31 | NUR ---
DR NJ NOTFIED OF NEW CONSULT. STATES TO PUT AN ORDER IN FOR AN ECHO AND HE WILL SEE HER
--- NOTE | 2019-07-07 08:46 | NUR ---
PT INSTRUCTED ON USE OF FLUTTER VALVE. PT DEMONSTRATED PROPER TECHNIQUE ON HIGHEST SETTING. PT INSTRUCTED TO USE Q 1-2 HOURS W/A.
--- NOTE | 2019-07-07 09:15 | NUR ---
PHYSICAL THERAPY Eval completed pt would benefit from SNF prior to home for further strengthening and conditioning due to increased SOB/fatigue with activity. See full report, thank you for this referral. Ioana Hernandez PT
--- NOTE | 2019-07-07 09:15 | NUR ---
Occupational Therapy evaluation completed on four with full evaluation to follow. Recommend occupational therapy per plan of care and SNF upon discharge. If refused, home with HH SN, OT, and PT with increased supervision assist. Thank you for this referral. Heike Delgado OTR/L
--- NOTE | 2019-07-07 09:52 | NUR ---
New Patient referral faxed to [facility] on this date. Pending acceptance.
--- NOTE | 2019-07-07 10:30 | NUR ---
PHYSICAL THERAPY Noted pt sitting in regular armrest chair in the middle of her room. Pt stated she got up on her own and was sitting there to rest. Ed pt she should have assist x 1 w her for safety to navigate in room. Pt wanting to sit up agreeable after much encourgment to sit in recliner not chair in middle of room for safety. STS from regular armchair cg-min assist x 1, Amb 1 x 10 ft w FWW to recliner chair in room on 3L oxygen. Pt's feel eleveated call ortega in reach did place chair alarm on pt for safety and spoke with nurse regarding above and concerns for safety. Will follow Ioana Hernandez PT
--- NOTE | 2019-07-07 10:30 | NUR ---
OT NOTE Patient was seen this date for 15 minutes of OT treatment to maximize safety and independence with ADLs, transfers, and functional mobility. Patient was identified by name and date. Patient was seated in a standard chair with arm rests upon arrival, stating she "didn't know" how she got there. Patient educated on using call ortega to get nurse if she wants to get OOB to a chair, BSC, etc. While seated, patient presented with SOB, re-educated on pursed lip breathing during streneous exercise, with fair carryover. Patient completed a functional sit/stand from the chair with CGA with the ww. When transferring into the chair, patient demonstrated poor ww safety and required max cues with poor carryover. Patient provided with a visual demonstration on safe hand placement and use of the ww following transfer, patient verbalized a better understanding. Patient seated in chair with alarm on, all needs within reach, 3LO2 intact, and nursing notified of patient location and functional status. Patient would benefit from continued OT treatment to meet goals, continue with POC. Thank you. Heike Delgado, OTR/L
[2019-07-07 12:00] VITALS: BP 102/59
--- NOTE | 2019-07-07 12:49 | NUR ---
Patient has been accepted at [facility] and can be discharged there once medically stable. No precert or authorization needed.
--- NOTE | 2019-07-07 14:00 | NUR ---
PER RESPIRATORY PTS SPO2 IN THE 80'S. TAKEN FROM 3L TO 4L VIA NASAL CANNULA AND SPO2 IS NOW WNL.
--- NOTE | 2019-07-07 15:30 | NUR ---
ASSUMED CARE OF THIS PATIENT, BED IN LOW POSITION, WHEEL LOCKS ENGAGED, SIDE RAILS UP X 2, INTRODUCED TO PATIENT, NO NEEDS VOICED AT THIS TIME, WHITE BOARD UPDATED.
[2019-07-07 16:00] VITALS: BP 119/50
[2019-07-07 20:00] VITALS: BP 117/47
[2019-07-08] VITALS: BP 117/56
[2019-07-08 06:17] LABS: HEMATOCRIT 32.7 % (37.0-47.0); MEAN CELL VOLUME 102.5 fl (81.0-99.0); MEAN CORPUSCULAR HGB 31.7 pg (27.0-31.0); MEAN CORPUSCULAR HGB CONC 30.9 g/dl (33.0-37.0); MEAN PLATELET VOLUME 10.8 fl (9.6-12.3); PLATELET COUNT AUTOMATED 234 10*3/uL (130-400); RED BLOOD COUNT 3.19 10*6/uL (4.10-5.10); RED CELL DISTRI WIDTH 15.2 % (0-14.5); WHITE BLOOD COUNT 9.9 10*3/uL (4.8-10.8)
[2019-07-08 06:31] LABS: CREATININE 1.38 mg/dL (0.55-1.02)
[2019-07-08 06:32] LABS: POTASSIUM 4.6 mmol/L (3.5-5.1)
--- NOTE | 2019-07-08 07:00 | NUR ---
ARRIVED ON SHIFT, INTRODUCED TO PATIENT, BED IN LOW POSITION, WHEEL LOCKS ENGAGED, SR UP X 2, BED ALARM, CALL LIGHT WITHIN REACH, NO NEEDS VOICED AT THIS TIME, WHITE BOARD UPDATED.
[2019-07-08 07:29] LABS: PLATELET SUFFICIENCY NORMAL (NORMAL); POLYCHROMASIA SLIGHT; TOTAL CELLS COUNTED 100 #CELLS
[2019-07-08 12:00] VITALS: BP 113/56
[2019-07-08 16:00] VITALS: BP 118/61
[2019-07-08 20:00] VITALS: BP 132/60
--- NOTE | 2019-07-08 20:00 | NUR ---
RESTING IN BED. 02 INTACT AT 4LPM VIA N/C. BED ALARM INTACT. CALL LIGHT WITHIN REACH.
[2019-07-09] VITALS: BP 124/64
--- NOTE | 2019-07-09 01:00 | NUR ---
RECEIVING AEROSOL TX PER PT'S REQUEST.
--- NOTE | 2019-07-09 04:00 | NUR ---
AWAKE & ALERT; SITTING UP IN A CHAIR. 02 INTACT. CALL LIGHT WITHIN REACH. BODY ALARM ON.
[2019-07-09 06:19] LABS: CREATININE 1.41 mg/dL (0.55-1.02); POTASSIUM 4.1 mmol/L (3.5-5.1)
[2019-07-09 06:25] LABS: MEAN CELL VOLUME 102.9 fl (81.0-99.0); MEAN CORPUSCULAR HGB 31.5 pg (27.0-31.0); MEAN CORPUSCULAR HGB CONC 30.6 g/dl (33.0-37.0); MEAN PLATELET VOLUME 10.8 fl (9.6-12.3); NUCLEATED RED BLOOD CELL 0.1 % (0.0-0.0); RED BLOOD COUNT 3.11 10*6/uL (4.10-5.10); RED CELL DISTRI WIDTH 15.2 % (0-14.5); WHITE BLOOD COUNT 16.2 10*3/uL (4.8-10.8)
[2019-07-09 06:28] LABS: PLATELET COUNT AUTOMATED 310 10*3/uL (130-400)
--- NOTE | 2019-07-09 07:00 | NUR ---
ARRIVED ON SHIFT, INTRODUCED TO PATIENT, BED IN LOW POSITION, WHEEL LOCKS ENGAGED, SR UP X 2, BED ALARM ON, CALL LIGHT WITHIN REACH, NO NEEDS VOICED AT THIS TIME, WHITE BOARD UPDATED.
[2019-07-09 07:06] LABS: PLATELET SUFFICIENCY NORMAL (NORMAL); POLYCHROMASIA SLIGHT; TOTAL CELLS COUNTED 100 #CELLS
[2019-07-09 08:00] VITALS: BP 138/69
--- NOTE | 2019-07-09 08:07 | NUR ---
Shift chart check completed.
[2019-07-09 12:00] VITALS: BP 112/64
--- NOTE | 2019-07-09 12:12 | NUR ---
PT. STATES SHE TOOK BIPAP OFF AT 10:30, WORE APPRX. 30 MINUTES.
[2019-07-09 16:00] VITALS: BP 111/59
[2019-07-09 20:00] VITALS: BP 129/67
[2019-07-09 20:45] VITALS: BP 146/65
--- NOTE | 2019-07-09 23:55 | NUR ---
PT REFUSING TO WEAR BIPAP.
[2019-07-10] VITALS: BP 138/65
--- NOTE | 2019-07-10 02:16 | NUR ---
PER RN PT IS REFUSING TO WEAR HER BIPAP AT THIS TIME, PT IS IN NO DISTRESS.
[2019-07-10 04:00] VITALS: BP 136/75
--- NOTE | 2019-07-10 04:25 | NUR ---
Upon discharge recommend patient to follow up for wound care in outpatient setting continue current wound care orders at discharging facility.
--- NOTE | 2019-07-10 04:35 | NUR ---
PT AGREES TO WEAR BIPAP "FOR 15 MINUTES." PT REQUESTING TO HOLD BIPAP IN PLACE WITHOUT STRAPS. RN AND RECREATIONAL THERAPIST EXPLAINED THAT THIS WOULD BE INEFFECTIVE. PT AGREES TO HAVE STRAPS PLACED BUT AGAIN STATES "ONLY FOR 15 MINUTES." WILL MONITOR.
--- NOTE | 2019-07-10 04:55 | NUR ---
PT REMOVED BIPAP HERSELF. STATES SHE CANNOT WEAR. O2 REAPPLIED VIA 3L NC. PATIENT ASSISTED UP TO BSC AND BACK INTO BED.
[2019-07-10 06:14] LABS: HEMATOCRIT 32.5 % (37.0-47.0); MEAN CELL VOLUME 102.2 fl (81.0-99.0); MEAN CORPUSCULAR HGB 31.4 pg (27.0-31.0); MEAN CORPUSCULAR HGB CONC 30.8 g/dl (33.0-37.0); MEAN PLATELET VOLUME 10.6 fl (9.6-12.3); NUCLEATED RED BLOOD CELL 0.1 10*3/uL (0.0-0.0); NUCLEATED RED BLOOD CELL 0.5 % (0.0-0.0); PLATELET COUNT AUTOMATED 342 10*3/uL (130-400); RED BLOOD COUNT 3.18 10*6/uL (4.10-5.10); RED CELL DISTRI WIDTH 15.2 % (0-14.5); WHITE BLOOD COUNT 18.2 10*3/uL (4.8-10.8)
[2019-07-10 06:25] LABS: CREATININE 1.58 mg/dL (0.55-1.02); POTASSIUM 4.9 mmol/L (3.5-5.1)
--- NOTE | 2019-07-10 07:00 | NUR ---
ARRIVED ON SHIFT, INTRODUCED TO PATIENT, BED IN LOW POSITION, WHEEL LOCKS ENGAGED, SIDE RAILS UP X 2 BED ALARM ON. NO NEEDS VOICED AT THIS TIME, WHITE BOARD UPDATED.
[2019-07-10 07:09] LABS: PLATELET SUFFICIENCY NORMAL (NORMAL); POLYCHROMASIA SLIGHT; TOTAL CELLS COUNTED 100 #CELLS
--- NOTE | 2019-07-10 07:55 | NUR ---
Shift chart check completed.
[2019-07-10 08:00] VITALS: BP 146/68
--- NOTE | 2019-07-10 08:35 | NUR ---
PHYSICAL THERAPY Patient seen this am 1;1 for therapy visit and was sitting up on EOB upon therapist arrival. Patient identified by name / and presented with continuous O2-3L via NC. Patient recorded resting SpO2 91%, HR 79 bpm and was joined by OT assistant farm operations manager who was present for observation only this session. Patient performed sit to stand transfer, CGA, tolerating static EOB stand for approx 3 minutes demonstrating increased fatigue / SOB. Patient instructed on purse lip breathing technique, recording SpO2 87%, HR 86 bpm. Folloiwng brief seated rest patient able to ambulate with use wh walker, CGA, 35'x 1, demonstrating very slow, cautious gait pattern, decreased stride and unsteady 180 degree turn around. Patient also demonstrated increased SOB upon return to EOB sit, recording SpO2 85%, HR 91 bpm. Patient instructed once again on purse lip breathing technique and following approx 45 second seated rest returned to 91% SpO2, HR 84 bpm. Patient remained EOB sit with call light, tray table, and telephone. Will continue per POC as tolerated, total treatment time 17 minutes. Mayank Lopez, EXTENSION SERVICE SPECIALIST IN CHARGE
--- NOTE | 2019-07-10 08:51 | NUR ---
When medically stable patient can be discharged to [facility]. community service worker/senior buyer planner following.
--- NOTE | 2019-07-10 08:55 | NUR ---
OT NOTE Pt was seen this A.M. 1:1 for 20 minute OT session. Upon arrival pt was sitting upright on the EOB. Pt identified by name and and had no complaints at this time. Pt presented to therapy with continuous 3L-O2 via NC which she remained on throughout the entire session. Pt's resting SpO2 was 91% and heart rate 79 bpm. Pt completed sit to stand from bed level with CGA and use of w/w, challenged pt's static standing tolerance needed for increased I in self care tasks and functional transfers. Pt was able to tolerate aprox 3 minutes at a time before sitting due to fatigue. Then challenged pt's dynamic standing balance while weight shifting, crossing midline, and reaching over all planes. Pt was able to maintain F+/G- standing balance throughout. Functional mobility was then completed to the bathroom with CGA and use of w/w. Throughout pt's SpO2 dropped to 85% and heart rate 91 bpm after aprox 30 seconds pt's Spo2 rasied to 90%. Pt was left sitting upright on the EOB with call light in hand, tray table in place, and phone in reach. Continue with rec D/C plan to SNF. TWYLA De Leon/Jose
--- NOTE | 2019-07-10 09:31 | NUR ---
DAVIDE faxed clinical updates to [facility] on this date. Patient can discharge to [facility] once medically stable. No Precert required.
[2019-07-10 12:00] VITALS: BP 147/64
--- NOTE | 2019-07-10 13:49 | NUR ---
BASS SINGER completed HENs.
[2019-07-10 16:00] VITALS: BP 134/53
--- NOTE | 2019-07-10 19:14 | NUR ---
PT HAD EPISODE OF URINARY INCONTINENCE. WAS ABLE TO URINATE IN BSC 400 CCs OUTPUT. URINE COLLECTED AND SENT FOR RANDOM SODIUM. NEW BRIEF PROVIDED. WILL MONITOR & NOTIFY OF OUTPUT AT 2005.
--- NOTE | 2019-07-10 19:30 | NUR ---
Pt does not want to wear the BiPap tonight. States that she "just doesnt like it". I tried to talk her into it and she kept saying "no".
[2019-07-10 20:00] VITALS: BP 145/97
--- NOTE | 2019-07-10 20:11 | NUR ---
'S ANSWERING SERVICE CALLED PER ORDER TO UPDATE ON URINE OUTPUT 2HRS FOLLOWING [employer] ADMINISTRATION. INFO LEFT WITH MANAGER OF COMPENSATION. AWAITING RETURN PHONE CALL.
--- NOTE | 2019-07-10 20:15 | NUR ---
RETURNED PHONE CALL. DISCUSSED 700 ML URINE OUTPUT + 1 EPISODE OF INCONTINENCE IN BRIEF. ALSO AWARE OF URINE SODIUM RESULT. NO NEW ORDERS RECEIVED.
[2019-07-11] VITALS: BP 133/71
--- NOTE | 2019-07-11 01:04 | NUR ---
PT ASLEEP IN BED. RESPIRATIONS EASY. NO S/S DISTRESS NOTED. WILL MONITOR. CALL LIGHT IN REACH.
[2019-07-11 05:45] VITALS: BP 139/56
[2019-07-11 06:07] LABS: HEMATOCRIT 32.8 % (37.0-47.0); MEAN CELL VOLUME 100.3 fl (81.0-99.0); MEAN CORPUSCULAR HGB 31.2 pg (27.0-31.0); MEAN CORPUSCULAR HGB CONC 31.1 g/dl (33.0-37.0); MEAN PLATELET VOLUME 10.8 fl (9.6-12.3); NUCLEATED RED BLOOD CELL 0.2 10*3/uL (0.0-0.0); NUCLEATED RED BLOOD CELL 1.3 % (0.0-0.0); PLATELET COUNT AUTOMATED 366 10*3/uL (130-400); RED BLOOD COUNT 3.27 10*6/uL (4.10-5.10); RED CELL DISTRI WIDTH 15.5 % (0-14.5)
[2019-07-11 06:34] LABS: CREATININE 1.37 mg/dL (0.55-1.02); POTASSIUM 4.6 mmol/L (3.5-5.1)
[2019-07-11 06:49] LABS: PLATELET SUFFICIENCY NORMAL (NORMAL); TOTAL CELLS COUNTED 100 #CELLS
[2019-07-11 07:53] VITALS: BP 150/62
--- NOTE | 2019-07-11 08:24 | NUR ---
When medically stable patient can be discharged to [facility]. factory process workers/environmental planner following.
--- NOTE | 2019-07-11 09:40 | NUR ---
OT NOTE Pt was seen this A.M. 1:1 for 15 minute OT session. Upon arrival pt was supine in bed. Pt identified by name and and had no complaints at this time. Pt presented to therapy with continuous 3L-O2 via NC which she remained on throughout the entire session. Sit to stand completed from bed level with CGA and use of w/w for UE support. Functional mobility was then completed to the bathroom with CGA and use of w/w. There she transferred on/off standard commode with CGA and verbal prompts for walker safety with tight turns. Pt then stood sink side while washing her hands with CGA for safety. After aprox 5 minutes of static standing pt required a seated rest break due to level of fatigue. Functional mobility was then completed back to the EOB with CGA and use of w/w. Pt was left sitting upright on the EOB with call light in hand, tray table in place, and phone in reach. Continue with rec D/C plan to SNF. NEDA De Leon
--- NOTE | 2019-07-11 09:45 | NUR ---
PHYSICAL THERAPY Patient seen this am 1;1 for therapy visit and was sitting up on EOB upon therapist arrival. Patient identified by name / and presented with continuous O2-3L via NC. Patient vital signs remained WFL's throughout entire treatment as OT bilingual medical assistant was present for observation only this session. Patient transfers sit to stand CGA x 1 and ambulates with use of wh walker, CGA, 20'x 1 to bathroom, demonstrating very slow micheline, decreased stride and a little confusion with several safety v/c's. Patient ambulated additonal 35'x 1 while returning to EOB sit with increased fatigue and no new c/o's. Patient remained with call light, tray table and telephone. Will continue per POC as tolerated, total treatment time 17 minutes. Mayank Lopez, COTTAGE MASTER
[2019-07-11 12:00] VITALS: BP 140/53
[2019-07-11 16:00] VITALS: BP 126/68
--- NOTE | 2019-07-11 18:52 | NUR ---
DANYELL AGUILAR ORDERRED.. 1 ASSIST TO BSC. AUDIBLE WHEEZES. PLEASANT AND COOPERATIVE. CONTINUE TO MONITOR
--- NOTE | 2019-07-11 19:45 | NUR ---
PATIENT REFFUSING TO WEAR BIPAP DESPITE ENCOURAGEMENT. 3L NC IN USE.
[2019-07-11 20:00] VITALS: BP 145/69
[2019-07-12] VITALS: BP 148/81
--- NOTE | 2019-07-12 02:24 | NUR ---
PT ASSISTED UP TO USE BSC. WANTS TO SIT UP ON SIDE OF BED. WILL MONITOR. STILL REFUSING BIPAP.
--- NOTE | 2019-07-12 04:52 | NUR ---
Nurse caring for patient stated that area to buttocks is not improving. This nurse viewed area with Dr. Suresh and Dr. Justice suggest patient should follow up with dermatology upon discharge.
[2019-07-12 06:18] LABS: HEMATOCRIT 32.1 % (37.0-47.0); MEAN CELL VOLUME 100.3 fl (81.0-99.0); MEAN CORPUSCULAR HGB 31.3 pg (27.0-31.0); MEAN CORPUSCULAR HGB CONC 31.2 g/dl (33.0-37.0); MEAN PLATELET VOLUME 10.7 fl (9.6-12.3); NUCLEATED RED BLOOD CELL 0.3 10*3/uL (0.0-0.0); NUCLEATED RED BLOOD CELL 2.2 % (0.0-0.0); PLATELET COUNT AUTOMATED 328 10*3/uL (130-400); RED CELL DISTRI WIDTH 15.4 % (0-14.5); WHITE BLOOD COUNT 11.6 10*3/uL (4.8-10.8)
[2019-07-12 06:19] LABS: CREATININE 1.32 mg/dL (0.55-1.02); POTASSIUM 4.1 mmol/L (3.5-5.1)
[2019-07-12 07:20] LABS: PLATELET SUFFICIENCY NORMAL (NORMAL); POLYCHROMASIA SLIGHT; TOTAL CELLS COUNTED 100 #CELLS
[2019-07-12 08:00] VITALS: BP 120/56
--- NOTE | 2019-07-12 08:45 | NUR ---
PT RESTING IN BED. NO DISTRESS NOTED. WILL MONITOR
--- NOTE | 2019-07-12 09:47 | NUR ---
Nutritional Support Services Note: Pt is eating 100% of all meals. She receives a cardiac diet as ordered with Ensure po Tid with meals. Red spots/rash noted to buttocks and back. No other Nutrition intervention needed at this time. Will follow if needed. Alyson Monaco Rdn Ld
--- NOTE | 2019-07-12 10:50 | NUR ---
PHYSICAL THERAPY Patient seen this am 1:1 for therapy visit and was resting supine in bed upon therapist arrival. Patient identified by name / and stated she had just laid down. OT surgical assistant certified was also present this morning for observation only as patient agreed to gait ex, transfering supine to sit EOB, CGA x 1. Patient needed a minute or so to fully collect herself prior to completing sit to stand transefer CGA x 1. Patient presented with continuos O2-2.5L via NC recording SpO2 94%, HR 66 bpm. Patient ambulates with use of wh walker, CGA, 50'x 1, demonstrating very slow, cautious gait pattern. Patient reports increased B LE weakness and needed v/c to increase stride with improved standing posture. Patient returned to EOB sit following gait with increased fatigue and remained with call light, tray table and telephone. Will continue per POC as tolerated, total treatment time 14 minutes. Mayank Lopez, INFO SPECIALIST
--- NOTE | 2019-07-12 11:05 | NUR ---
OT NOTE Pt was seen this A.M. 1:1 for 15 minute OT session. Upon arrival pt was supine in bed. Pt identified by name and and had complaints of generalized fatigue and BLE weakness. Pt presented to therapy with continuous 2.5L-O2 via NC which she remained on throughout the entire session. Pt transferred supine to sit EOB with SBA. Sit to stand completed from bed level with CGA and use of w/w. While standing challenged pt's static standing tolerance needed for increased I in self care tasks and functional transfers, pt was able to tolerate aprox 3 minutes at a time before sitting due to fatigue. Challenged pt's dynamic standing balance while weight shifting, crossing midline, and reaching over all planes. Pt was able to maintain G- standing balance throughout. Functional mobility was then completed to the bathroom and back with CGA and use of w/w for UE support. Throughout pt required one standing rest break due to fatigue. Pt then transferred sit to supine with SBA. There she was left with call light in hand, tray table in place, and bed alarm activated for safety. Continue with rec D/C plan to SNF. NEDA De Leon
[2019-07-12 12:00] VITALS: BP 114/66
[2019-07-12 16:00] VITALS: BP 127/70
[2019-07-12 20:00] VITALS: BP 113/55
--- NOTE | 2019-07-12 21:26 | NUR ---
PATIENT SITTING ON SIDE OF BED. REFUSING BIPAP AT THIS TIME DESPITE ENCOURAGEMENT. BED IN LOW POSITION, BED ALARM ON, CALL LIGHT IN REACH
[2019-07-13] VITALS: BP 113/55
[2019-07-13 05:20] VITALS: BP 149/58
[2019-07-13 06:02] LABS: HEMATOCRIT 31.8 % (37.0-47.0); MEAN CELL VOLUME 101.3 fl (81.0-99.0); MEAN CORPUSCULAR HGB 31.2 pg (27.0-31.0); MEAN CORPUSCULAR HGB CONC 30.8 g/dl (33.0-37.0); MEAN PLATELET VOLUME 10.6 fl (9.6-12.3); NUCLEATED RED BLOOD CELL 0.2 10*3/uL (0.0-0.0); NUCLEATED RED BLOOD CELL 1.6 % (0.0-0.0); PLATELET COUNT AUTOMATED 303 10*3/uL (130-400); RED BLOOD COUNT 3.14 10*6/uL (4.10-5.10); RED CELL DISTRI WIDTH 15.4 % (0-14.5)
[2019-07-13 06:18] LABS: CREATININE 1.25 mg/dL (0.55-1.02)
[2019-07-13 07:28] LABS: PLATELET SUFFICIENCY NORMAL (NORMAL); TOTAL CELLS COUNTED 100 #CELLS
[2019-07-13 07:29] LABS: POLYCHROMASIA SLIGHT
--- NOTE | 2019-07-13 07:35 | NUR ---
PHYSICAL THERAPY Patient seen this am 1;1 for therapy visit and was sitting up on EOB upon therapist arrival. Patient identified by name / and reports feeling a bit better this morning with increased energy. OT assistant scientist was also present for observation only as patient presented with continuous O2-2.5L via NC. Patient transfers sit to stand CGA x 1 and ambulates with use of wh walker, CGA to bathroom, 20'x 1, then additional 45'x 1, demonstrating slow, cautious gait pattern. Patient fatigues quickly with increased SOB, recording SpO2 88%, HR 61 bpm and received v/c for purse lip breathing technique prior to return to EOB sit. Patient remained EOB with SpO2 92%, HR 62 bpm following treatment with call light, tray table and telephone. Will continue per POC as tolerated, total treatment time 16 minutes. Mayank Lopez, SUPERVISOR SHEARING
--- NOTE | 2019-07-13 07:55 | NUR ---
OT NOTE Pt was seen this A.M. 1:1 for 25 minute OT session. Upon arrival pt was sitting upright on the EOB. Pt identified by name and and had no complaints at this time. Pt presented to therapy with continuous 2.5L-O2 via NC which she remained on throughout the entire session. Pt's resting SpO2 was 93% and heart rate 57 bpm. While sitting EOB pt donned B socks with SBA and gown with SBA. Sit to stand completed from bed level with CGA and use of w/w followed by functional mobility to the bathroom with CGA. There she transferred on/off standard commode with CGA and use of grab bar for UE support. Clothing management completed with CGA and toilet hygiene completed with supervision while seated. Pt then stood sink side while washing her hands with CGA for safety. Functional mobility was then completed back to the EOB. Upon return to the EOB pt's SpO2 dropped to 88% heart rate 61 bpm, after aprox 30 seconds pt's SpO2 raised to 92%. While sitting EOB pt completed BUE towel exercises over all planes of motion for 1 X 10 to increase and restore maximum functional use. Pt was left sitting upright on the EOB with call light in hand, tray table in place, and phone in reach. Continue with rec D/C plan to SNF. NEDA De Leon
[2019-07-13 08:00] VITALS: BP 166/68
--- NOTE | 2019-07-13 10:30 | NUR ---
Per multidisciplinary discharge planning meeting patient is possibly having a thoracentesis today and plan is to discharge tomorrow to [facility].
[2019-07-13 12:00] VITALS: BP 162/62
--- NOTE | 2019-07-13 12:11 | NUR ---
DAVIDE faxed clincial updates to [facility] on this date. Patient can return once medically stable.
[2019-07-13 16:00] VITALS: BP 127/54
[2019-07-13 20:00] VITALS: BP 131/46
[2019-07-14] VITALS: BP 147/50
--- NOTE | 2019-07-14 03:29 | NUR ---
PATIENT SLEEPING NO SIGNS OF DISTRESS. RESPIRATIONS EASY, NON LABORED. BED IN LOWEST POSITION CALL LIGHT WITHIN REACH WILL CONTINUE TO MONITOR.
--- NOTE | 2019-07-14 05:18 | NUR ---
ZAFAR FORMAN [id number] Please refer to the physician's history and physical for past medical history, comorbid conditions, and allergies. Diagnosis: ACUTE HEART FAILURE,LBBB Michael Score: 17,AT RISK WOUND DESCRIPTIONS: Wound Number: 1 Location of the wound: intergluteal fold and left buttocks Type of wound: rash Size: 8.5cm x 17.0cm x 0.1cm Tunneling: none Undermining: none Sinus Tract: none Presence of Exudate: none Amount: None Color: dark red Odor: None Periwound Skin Appearance: Normal Wound edges: approximated Pain (associated with wound): none at time of assessment How does patient state this happened? pt unsure how this happened Surface the patient is resting on: Isoflex SKIN PREVENTION RECOMMENDATION: 1. Pressure redistribution support surface as appropriate 2. Elevate heels 3. Remove boots/TEDS every shift and reapply 4. Head of bed 30 degrees as tolerated 5. Assess nutrition and hydration 6. Manage moisture 7. Avoid the use of containment devices while in bed 8. Use absorptive products on surfaces limit layers of linens on bed 9. Turn and reposition every 1-2 hours in bed and every 1 hour in chair as tolerated 10. Weight shifts every 15 minutes while up in chair 11. Offloading with pillows or device to keep heels elevated off bed 12. Monitor skin at least every shift 13. Inspect under medical devices twice a day WOUND TREATMENT RECOMMENDATIONS: Patient states when she is discharged she will follow up with dermatology.
[2019-07-14 05:22] VITALS: BP 155/72
[2019-07-14 06:01] LABS: HEMATOCRIT 32.5 % (37.0-47.0); MEAN CELL VOLUME 100.9 fl (81.0-99.0); MEAN CORPUSCULAR HGB 31.1 pg (27.0-31.0); MEAN CORPUSCULAR HGB CONC 30.8 g/dl (33.0-37.0); MEAN PLATELET VOLUME 10.7 fl (9.6-12.3); NUCLEATED RED BLOOD CELL 0.1 10*3/uL (0.0-0.0); NUCLEATED RED BLOOD CELL 0.7 % (0.0-0.0); PLATELET COUNT AUTOMATED 289 10*3/uL (130-400); RED BLOOD COUNT 3.22 10*6/uL (4.10-5.10); RED CELL DISTRI WIDTH 15.7 % (0-14.5); WHITE BLOOD COUNT 10.8 10*3/uL (4.8-10.8)
[2019-07-14 06:32] LABS: CREATININE 1.26 mg/dL (0.55-1.02); POTASSIUM 4.3 mmol/L (3.5-5.1)
[2019-07-14 06:33] LABS: TOTAL CELLS COUNTED 100 #CELLS
[2019-07-14 06:34] LABS: PLATELET SUFFICIENCY NORMAL (NORMAL); POLYCHROMASIA SLIGHT
[2019-07-14 08:00] VITALS: BP 146/58
--- NOTE | 2019-07-14 08:35 | NUR ---
PHYSICAL THERAPY Patient seen this am 1:1 for therapy visit and was sitting up on EOB upon therapist arrival. Patient identified by name / and presented with continuos O2-2L via NC. OT medical assistant ob gyn was also present for observation only as patient transfers sit to stand CGA, then ambulates with use of wh walker, CGA, 50'x 1. Patient demonstrates slow micheline, decreased stride and very cautious during all turns. Patient also fatigues quickly and needed several brief standing rest breaks, < 20 seconds to safely complete gait ex. Patient returned to EOB sit, recording SpO2 90%, HR 58 bpm and remained EOB with call light, tray table and telephone. Will continue per POC as tolerated, total treatment time 14 minutes. Mayank Lopez, COPY CENTER SPECIALIST
--- NOTE | 2019-07-14 09:18 | NUR ---
OT NOTE Pt was seen this A.M. 1:1 for 24 minute OT session. Upon arrival pt was sitting upright on the EOB. Pt identified by name and and had no complaints at this time other than generalized fatigue. Pt presented to therapy with continuous 2L-O2 via NC which she remained on throughout the entire session. While sitting EOB pt completed BUE towel exercises over all planes of motion for 1 x 10 to increase and restore maximum functional use. Sit to stand completed from bed level with SBA and use of w/w for UE support. Functional mobility was then completed to the bathroom and back with two standing rest breaks due to fatigue. Challenged pt's standing tolerance needed for increased I in self care tasks and functional transfers, pt was able to tolerate aprox 3 minutes at a time before sitting due to fatigue. Challenged pt's dynamic standing balance while weight shifting, crossing midline, and reaching over all planes. Pt was able to maintain G- standing balance throughout. Pt was left sitting upright on the EOB with call light in hand, tray table in place, and phone in reach. Continue with rec D/C plan to SNF. NEDA De Leon
--- NOTE | 2019-07-14 10:59 | NUR ---
Face to face encounter with and Dr. Bueno. Per physicians they are not doing a thoracentesis. See [facility] med order.
[2019-07-14] MEDS ORDERED: BUMETANIDE1 MG PO (11:41)
[2019-07-14] MEDS ORDERED: METOPROLOL TART50 M1 PO (11:41)
[2019-07-14] MEDS ORDERED: VITAMIN D22000 UNIT PO (11:41)
[2019-07-14] MEDS ORDERED: HYDRALAZINE HYD50 MG PO (11:41)
[2019-07-14] MEDS ORDERED: LOSARTAN POTASS25 M1 PO (11:41)
[2019-07-14] MEDS ORDERED: PREDNISONE10 MG PO (11:41)
--- NOTE | 2019-07-14 12:21 | NUR ---
Patient is discharged at this time to [facility] via family car. Yanet Mary will be at ED doors at 14:00 to transport. DC information faxed, NH, nursing/bath steward/stewardess and family all notified.
--- NOTE | 2019-07-14 12:48 | NUR ---
PHYSICAL THERAPY CO-SIGN I approve of the Physical Therapy notes written above. JAVAN GAMBLE PT, DPT
--- NOTE | 2019-07-14 12:48 | NUR ---
OCCUPATIONAL THERAPY CO-SIGN I approve of the Occupational Therapy notes written above. TIMUR LEVY, OTR/L
--- NOTE | 2019-07-14 13:52 | NUR ---
Nurse to nurse report given LE Velazquez at [facility].
--- NOTE | 2019-07-14 14:00 | NUR ---
Discharge instructions reviewed with patient/family. Patient receptive and verbalizes understanding. Follow-up care arranged. Written instructions given to patient/family. Patient was wheeled from unit with all personal belongings accounted for. New prescriptions were reviewed. Patient and LE Velazquez were made aware of follow up visits with [facility] and . RISHI CHUNG
== END 2019-07-14 12:21 | disposition other institution (70) | DRG 871 ==
LOC: ED 15:45 → 4E 19:15 → EDHOLD 19:15 → 4E 19:44
PROVIDERS: Emergency Medicine; Family Medicine; Hospitalist; Internal Medicine; ADMIT Family Medicine
DX: A41.9 Sepsis, unspecified organism (principal); J18.9 Pneumonia, unspecified organism; E43 Unspecified severe protein-calorie malnutrition; I50.33 Acute on chronic diastolic (congestive) heart failure; J96.21 Acute and chronic respiratory failure with hypoxia; J96.22 Acute and chronic respiratory failure with hypercapnia; J44.1 Chronic obstructive pulmonary disease with (acute) exacerbation; J44.0 Chronic obstructive pulmonary disease with (acute) lower respiratory infection; E87.1 Hypo-osmolality and hyponatremia; I13.0 Hypertensive heart and chronic kidney disease with heart failure and stage 1 through stage 4 chronic kidney disease, or unspecified chronic kidney disease; F17.213 Nicotine dependence, cigarettes, with withdrawal; N17.9 Acute kidney failure, unspecified; I24.9 Acute ischemic heart disease, unspecified; I44.7 Left bundle-branch block, unspecified; D53.9 Nutritional anemia, unspecified; R73.9 Hyperglycemia, unspecified; R73.03 Prediabetes; R91.8 Other nonspecific abnormal finding of lung field; R76.8 Other specified abnormal immunological findings in serum; N18.3 Chronic kidney disease, stage 3 (moderate); E87.8 Other disorders of electrolyte and fluid balance, not elsewhere classified; G47.33 Obstructive sleep apnea (adult) (pediatric); Z66 Do not resuscitate; Z51.5 Encounter for palliative care; Z88.1 Allergy status to other antibiotic agents; Z91.013 Allergy to seafood; Z79.899 Other long term (current) drug therapy; Z79.82 Long term (current) use of aspirin; Z82.49 Family history of ischemic heart disease and other diseases of the circulatory system; Z68.35 Body mass index [BMI] 35.0-35.9, adult; Z83.3 Family history of diabetes mellitus; Z99.81 Dependence on supplemental oxygen

== ENCOUNTER 2019-07-23 22:03 | Emergency (ER) | payer MEDICARE, OTHER ==
[~2019-07-23] VITALS: Ht 160 cm; Wt 85.7 kg
[~2019-07-23 22:03] MED LIST changes: +BUMETANIDE1 MG PO; +VITAMIN D22000 UNIT PO
[2019-07-23 22:05] VITALS: BP 142/70
[2019-07-24] MEDS ORDERED: AUGMENTIN 875875 MG PO (00:38)
== END 2019-07-24 01:23 | disposition other institution (70) ==
LOC: ED 22:03
DX: S09.90XA Unspecified injury of head, initial encounter (principal); J32.0 Chronic maxillary sinusitis; I13.0 Hypertensive heart and chronic kidney disease with heart failure and stage 1 through stage 4 chronic kidney disease, or unspecified chronic kidney disease; I50.9 Heart failure, unspecified; N18.9 Chronic kidney disease, unspecified; E78.00 Pure hypercholesterolemia, unspecified; Z88.8 Allergy status to other drugs, medicaments and biological substances; Z91.013 Allergy to seafood; Z79.899 Other long term (current) drug therapy; Z79.82 Long term (current) use of aspirin; W07.XXXA Fall from chair, initial encounter; Y93.89 Activity, other specified; Y92.89 Other specified places as the place of occurrence of the external cause; Y99.8 Other external cause status

== ENCOUNTER 2019-08-30 18:43 | Inpatient (IN) | payer MEDICARE, OTHER ==
[~2019-08-30] VITALS: Ht 157.5 cm; Wt 83.5 kg
[~2019-08-30 18:43] MED LIST changes: +AUGMENTIN 875875 MG PO
[2019-08-30 19:04] VITALS: BP 107/58
[2019-08-30 19:59] VITALS: BP 115/68
[2019-08-30 20:28] LABS: BASO # 0.1 10*3/uL (0.0-0.1); BASO % 0.5 % (0.0-1.0); EOS # 0.5 10*3/uL (0.0-0.4); HEMATOCRIT 33.3 % (37.0-47.0); LYMPH % 10.2 % (27.0-41.0); MEAN CELL VOLUME 101.2 fl (81.0-99.0); MEAN CORPUSCULAR HGB 30.1 pg (27.0-31.0); MEAN CORPUSCULAR HGB CONC 29.7 g/dl (33.0-37.0); MEAN PLATELET VOLUME 10.8 fl (9.6-12.3); MONO # 0.5 10*3/uL (0.1-1.0); MONO % 5.2 % (3.0-9.0); NEUT # 7.9 10*3/uL (2.3-7.9); NEUT % 78.5 % (47.0-73.0); PLATELET COUNT AUTOMATED 260 10*3/uL (130-400); RED BLOOD COUNT 3.29 10*6/uL (4.10-5.10); RED CELL DISTRI WIDTH 16.7 % (0-14.5); WHITE BLOOD COUNT 10.1 10*3/uL (4.8-10.8)
[2019-08-30 20:42] LABS: ACT PARTIAL THROMBO TIME 24.4 SECONDS (20.0-32.1)
[2019-08-30 20:45] LABS: ALBUMIN 2.8 gm/dl (3.1-4.5); ALKALINE PHOSPHATASE 94 U/L (45-117); BUN 46 mg/dl (7-24); CHLORIDE 103 mmol/L (98-107); CREATININE 1.81 mg/dL (0.55-1.02); POTASSIUM 4.1 mmol/L (3.5-5.1); SGOT/AST 7 IU/L (3-35); SGPT/ALT 21 U/L (12-78); SODIUM 139 mmol/L (136-145); TOTAL PROTEIN 7.1 gm/dL (6.4-8.2)
[2019-08-30 20:56] VITALS: BP 141/79
[2019-08-30 21:05] LABS: TROPONIN I < 0.015 ng/ml (<0.045)
[2019-08-30 21:35] VITALS: BP 141/79
[2019-08-30 22:29] VITALS: BP 135/80
[2019-08-30 22:50] VITALS: BP 133/90
[2019-08-30] MEDS ORDERED: ANORO ELLIPTA1 EACH INH (23:35)
[2019-08-31 06:53] LABS: BASO % 0.4 % (0.0-1.0); EOS # 0.5 10*3/uL (0.0-0.4); EOS % 5.2 % (1.0-4.0); HEMATOCRIT 33.2 % (37.0-47.0); LYMPH % 10.8 % (27.0-41.0); MEAN CELL VOLUME 102.2 fl (81.0-99.0); MEAN CORPUSCULAR HGB 30.2 pg (27.0-31.0); MEAN CORPUSCULAR HGB CONC 29.5 g/dl (33.0-37.0); MEAN PLATELET VOLUME 11.2 fl (9.6-12.3); MONO # 0.5 10*3/uL (0.1-1.0); MONO % 5.7 % (3.0-9.0); NEUT % 77.2 % (47.0-73.0); PLATELET COUNT AUTOMATED 236 10*3/uL (130-400); RED BLOOD COUNT 3.25 10*6/uL (4.10-5.10); RED CELL DISTRI WIDTH 16.4 % (0-14.5); WHITE BLOOD COUNT 9.1 10*3/uL (4.8-10.8)
[2019-08-31 07:25] LABS: POTASSIUM 3.8 mmol/L (3.5-5.1)
[2019-08-31 07:28] LABS: CREATININE 1.63 mg/dL (0.55-1.02)
[2019-08-31 08:00] VITALS: BP 116/68; BP 121/73
[2019-08-31 12:00] VITALS: BP 109/75
[2019-08-31 16:00] VITALS: BP 97/60
[2019-08-31 20:00] VITALS: BP 106/71
[2019-09-01] VITALS: BP 115/66
[2019-09-01 08:00] VITALS: BP 94/64
[2019-09-01 12:00] VITALS: BP 122/60
[2019-09-01 16:00] VITALS: BP 102/60
[2019-09-01 20:00] VITALS: BP 129/74
[2019-09-02] VITALS (8 sets, daily range): BP systolic 110–133; BP diastolic 55–86
[2019-09-02 07:01] LABS: BASO # 0.1 10*3/uL (0.0-0.1); BASO % 0.6 % (0.0-1.0); EOS # 0.5 10*3/uL (0.0-0.4); EOS % 6.2 % (1.0-4.0); HEMATOCRIT 34.1 % (37.0-47.0); LYMPH # 1.2 10*3/uL (1.3-4.4); MEAN CELL VOLUME 101.8 fl (81.0-99.0); MEAN CORPUSCULAR HGB 29.6 pg (27.0-31.0); MEAN PLATELET VOLUME 11.3 fl (9.6-12.3); MONO # 0.5 10*3/uL (0.1-1.0); MONO % 6.2 % (3.0-9.0); NEUT # 6.2 10*3/uL (2.3-7.9); NEUT % 72.4 % (47.0-73.0); PLATELET COUNT AUTOMATED 234 10*3/uL (130-400); RED BLOOD COUNT 3.35 10*6/uL (4.10-5.10); RED CELL DISTRI WIDTH 16.3 % (0-14.5); WHITE BLOOD COUNT 8.6 10*3/uL (4.8-10.8)
[2019-09-02 07:15] LABS: ALBUMIN 2.9 gm/dl (3.1-4.5); CREATININE 1.68 mg/dL (0.55-1.02); POTASSIUM 3.9 mmol/L (3.5-5.1)
[2019-09-03] VITALS: BP 123/73
[2019-09-03 05:38] VITALS: BP 147/87
[2019-09-03 06:14] LABS: BASO # 0.1 10*3/uL (0.0-0.1); BASO % 0.6 % (0.0-1.0); EOS # 0.6 10*3/uL (0.0-0.4); EOS % 7.2 % (1.0-4.0); HEMATOCRIT 35.3 % (37.0-47.0); LYMPH % 11.6 % (27.0-41.0); MEAN CORPUSCULAR HGB 29.5 pg (27.0-31.0); MEAN CORPUSCULAR HGB CONC 28.9 g/dl (33.0-37.0); MEAN PLATELET VOLUME 11.2 fl (9.6-12.3); MONO # 0.6 10*3/uL (0.1-1.0); MONO % 7.2 % (3.0-9.0); NEUT # 6.1 10*3/uL (2.3-7.9); NEUT % 72.9 % (47.0-73.0); PLATELET COUNT AUTOMATED 208 10*3/uL (130-400); RED BLOOD COUNT 3.46 10*6/uL (4.10-5.10); WHITE BLOOD COUNT 8.4 10*3/uL (4.8-10.8)
[2019-09-03 06:51] LABS: CREATININE 1.42 mg/dL (0.55-1.02); POTASSIUM 3.9 mmol/L (3.5-5.1)
[2019-09-03] MEDS ORDERED: XARE15TA PO (10:09)
[2019-09-03] MEDS ORDERED: DIGOXIN125 MCG PO (10:09)
[2019-09-03] MEDS ORDERED: METOPROLOL TART50 M1 PO (10:09)
== END 2019-09-03 11:40 | disposition home or self-care (01) | DRG 291 ==
LOC: ED 18:43 → EDHOLD 21:52 → 4E 21:52
PROVIDERS: Emergency Medicine; Internal Medicine; Student in an Organized Health Care Education/Training Program; ADMIT Family Medicine
DX: I13.0 Hypertensive heart and chronic kidney disease with heart failure and stage 1 through stage 4 chronic kidney disease, or unspecified chronic kidney disease (principal); I50.33 Acute on chronic diastolic (congestive) heart failure; R65.11 Systemic inflammatory response syndrome (SIRS) of non-infectious origin with acute organ dysfunction; N17.0 Acute kidney failure with tubular necrosis; E43 Unspecified severe protein-calorie malnutrition; J96.11 Chronic respiratory failure with hypoxia; N18.3 Chronic kidney disease, stage 3 (moderate); E66.9 Obesity, unspecified; E11.22 Type 2 diabetes mellitus with diabetic chronic kidney disease; I48.0 Paroxysmal atrial fibrillation; Z66 Do not resuscitate; I25.10 Atherosclerotic heart disease of native coronary artery without angina pectoris; D53.9 Nutritional anemia, unspecified; E83.41 Hypermagnesemia; E11.65 Type 2 diabetes mellitus with hyperglycemia; J41.0 Simple chronic bronchitis; Z51.5 Encounter for palliative care; Z99.81 Dependence on supplemental oxygen; Z88.1 Allergy status to other antibiotic agents; Z88.8 Allergy status to other drugs, medicaments and biological substances; Z91.013 Allergy to seafood; Z87.891 Personal history of nicotine dependence; Z83.3 Family history of diabetes mellitus; Z82.49 Family history of ischemic heart disease and other diseases of the circulatory system; Z84.89 Family history of other specified conditions; Z79.82 Long term (current) use of aspirin; Z68.34 Body mass index [BMI] 34.0-34.9, adult; H35.30 Unspecified macular degeneration

== ENCOUNTER → 2019-11-13 | Outpatient (CLI) | payer MEDICARE, OTHER ==
[~2019-11-13] MED LIST changes: +DIGOXIN125 MCG PO; +XARE15TA PO
[2019-11-13 11:12] LABS: BASO # 0.1 10*3/uL (0.0-0.1); BASO % 0.5 % (0.0-1.0); EOS # 0.5 10*3/uL (0.0-0.4); EOS % 4.4 % (1.0-4.0); HEMATOCRIT 38.5 % (37.0-47.0); LYMPH # 0.7 10*3/uL (1.3-4.4); LYMPH % 6.1 % (27.0-41.0); MEAN CELL VOLUME 98.5 fl (81.0-99.0); MEAN CORPUSCULAR HGB 28.6 pg (27.0-31.0); MEAN CORPUSCULAR HGB CONC 29.1 g/dl (33.0-37.0); MEAN PLATELET VOLUME 11.2 fl (9.6-12.3); MONO # 0.5 10*3/uL (0.1-1.0); MONO % 4.9 % (3.0-9.0); NEUT # 9.1 10*3/uL (2.3-7.9); NEUT % 83.5 % (47.0-73.0); PLATELET COUNT AUTOMATED 199 10*3/uL (130-400); RED BLOOD COUNT 3.91 10*6/uL (4.10-5.10); RED CELL DISTRI WIDTH 15.9 % (0-14.5); WHITE BLOOD COUNT 10.9 10*3/uL (4.8-10.8)
[2019-11-13 11:30] LABS: ALBUMIN 3.2 gm/dl (3.1-4.5); CREATININE 1.88 mg/dL (0.55-1.02); POTASSIUM 3.6 mmol/L (3.5-5.1); TOTAL PROTEIN 7.2 gm/dL (6.4-8.2)
[2019-11-13 11:30] LABS: URINE CREATININE RANDOM 73.3 mg/dL
[2019-11-13 11:36] LABS: BILIRUBIN NEGATIVE (NEGATIVE); CLARITY CLEAR (CLEAR); COLOR YELLOW (YELLOW); GLUCOSE NEGATIVE (NEGATIVE); KETONE NEGATIVE (NEGATIVE)
[2019-11-13 11:37] LABS: BLOOD TRACE-LYSED (NEGATIVE); LEUKO ESTERASE 2+ (NEGATIVE); NITRITE POSITIVE (NEGATIVE); UROBILINOGEN < 0.2 E.U./dl (0.2-1.0)
[2019-11-13 11:38] LABS: BACTERIA 3+; EPITHELIAL CELLS 0-2; RBC 0-2 rbc/hpf (0-2); WBC 16-20 wbc/hpf (0-5)
[2019-11-14 11:09] LABS: CREATININE,URINE 69.7 mg/dL (Not Estab.)
== END ==
LOC: LAB 10:25
PROVIDERS: Internal Medicine Nephrology
DX: N18.3 Chronic kidney disease, stage 3 (moderate) (principal)

== ENCOUNTER → 2020-01-11 | Outpatient (CLI) | payer MEDICARE, OTHER ==
[2020-01-11 15:08] LABS: CREATININE 1.64 mg/dL (0.55-1.02); POTASSIUM 3.8 mmol/L (3.5-5.1)
== END | disposition home or self-care (01) ==
LOC: LAB 14:01
PROVIDERS: ATTEND Registered Nurse
DX: I48.0 Paroxysmal atrial fibrillation (principal)

== ENCOUNTER 2020-01-21 14:02 | Inpatient (IN) | payer MEDICARE, OTHER ==
[~2020-01-21] VITALS: Ht 160 cm; Wt 79.4 kg
[2020-01-21 14:11] VITALS: BP 144/60
[2020-01-21 14:34] LABS: BASO # 0.1 10*3/uL (0.0-0.1); BASO % 0.7 % (0.0-1.0); EOS # 1.3 10*3/uL (0.0-0.4); EOS % 12.3 % (1.0-4.0); HEMATOCRIT 36.3 % (37.0-47.0); LYMPH # 0.9 10*3/uL (1.3-4.4); LYMPH % 8.5 % (27.0-41.0); MEAN CELL VOLUME 96.3 fl (81.0-99.0); MEAN CORPUSCULAR HGB 28.4 pg (27.0-31.0); MEAN CORPUSCULAR HGB CONC 29.5 g/dl (33.0-37.0); MEAN PLATELET VOLUME 11.5 fl (9.6-12.3); MONO # 0.8 10*3/uL (0.1-1.0); MONO % 7.3 % (3.0-9.0); NEUT # 7.6 10*3/uL (2.3-7.9); NEUT % 70.6 % (47.0-73.0); PLATELET COUNT AUTOMATED 280 10*3/uL (130-400); RED BLOOD COUNT 3.77 10*6/uL (4.10-5.10); RED CELL DISTRI WIDTH 17.6 % (0-14.5); WHITE BLOOD COUNT 10.8 10*3/uL (4.8-10.8)
[2020-01-21 14:45] LABS: ACT PARTIAL THROMBO TIME 29.3 SECONDS (20.0-32.1)
[2020-01-21 14:59] LABS: ALBUMIN 3.1 gm/dl (3.1-4.5); ALKALINE PHOSPHATASE 105 U/L (45-117); BUN 29 mg/dl (7-24); CHLORIDE 104 mmol/L (98-107); CREATININE 1.81 mg/dL (0.55-1.02); POTASSIUM 4.3 mmol/L (3.5-5.1); SGOT/AST 20 IU/L (3-35); SGPT/ALT 11 U/L (12-78); SODIUM 136 mmol/L (136-145); TOTAL PROTEIN 7.5 gm/dL (6.4-8.2)
[2020-01-21 15:05] LABS: TROPONIN I < 0.015 ng/ml (<0.045)
[2020-01-21 16:19] VITALS: BP 142/46
[2020-01-21 16:56] VITALS: BP 158/59
[2020-01-21 20:01] VITALS: BP 132/63
--- NOTE | 2020-01-21 21:21 | NUR ---
PATIENT IN BED RESTING EYES, EASILY AROUSED. NO DISTRESS NOTED. RESP EASY AND NONLABORED. VSS. RN WILL CONT TO MONITOR. CALL LIGHT WITHIN REACH
[2020-01-21 21:50] VITALS: BP 145/68
[2020-01-21 22:51] VITALS: BP 148/68
[2020-01-22] VITALS (7 sets, daily range): BP systolic 132–154; BP diastolic 44–80
--- NOTE | 2020-01-22 01:13 | NUR ---
PATIENT IN BED LAYING ON LEFT SIDE NO DISTRESS NOTED. RESP EASY AND NONLABORED. RN WILL CONT TO MONITOR. CALL LIGHT WITHIN REACH
[2020-01-22] MEDS ORDERED: PANTOPRAZOLE SO40 MG PO (02:54)
[2020-01-22] MEDS ORDERED: CIPROFLOXACIN H10 ML OPH (02:55)
[2020-01-22] MEDS ORDERED: BUMETANIDE0.5 MG PO (02:56)
[2020-01-22] MEDS ORDERED: APRESOLINE25 MG PO (02:57)
[2020-01-22] MEDS ORDERED: LOPRESSOR50 M1 PO (02:58)
[2020-01-22] MEDS ORDERED: XARELTO15 M1 PO (02:59)
[2020-01-22] MEDS ORDERED: DEEP SEA44 ML INH (03:01)
[2020-01-22] MEDS ORDERED: VENT7GM INH (03:01)
[2020-01-22] MEDS ORDERED: DORZOLAMIDE HYD10 ML OP (03:03)
--- NOTE | 2020-01-22 05:57 | NUR ---
CONSULT TO DR CHANEL CALLED AT THIS TIME.
[2020-01-22 06:14] LABS: ALBUMIN 2.6 gm/dl (3.1-4.5); CREATININE 1.77 mg/dL (0.55-1.02); FREE T4 1.04 ng/dl (0.76-1.46); POTASSIUM 4.4 mmol/L (3.5-5.1)
[2020-01-22 06:15] LABS: BASO % 0.2 % (0.0-1.0); EOS % 0.1 % (1.0-4.0); HEMATOCRIT 36.4 % (37.0-47.0); LYMPH # 0.7 10*3/uL (1.3-4.4); LYMPH % 8.4 % (27.0-41.0); MEAN CELL VOLUME 98.6 fl (81.0-99.0); MEAN CORPUSCULAR HGB 27.4 pg (27.0-31.0); MEAN CORPUSCULAR HGB CONC 27.7 g/dl (33.0-37.0); MEAN PLATELET VOLUME 11.9 fl (9.6-12.3); MONO # 0.2 10*3/uL (0.1-1.0); MONO % 2.5 % (3.0-9.0); NEUT # 7.1 10*3/uL (2.3-7.9); NEUT % 87.6 % (47.0-73.0); PLATELET COUNT AUTOMATED 258 10*3/uL (130-400); RED BLOOD COUNT 3.69 10*6/uL (4.10-5.10); RED CELL DISTRI WIDTH 17.1 % (0-14.5); WHITE BLOOD COUNT 8.1 10*3/uL (4.8-10.8)
[2020-01-22 06:19] LABS: THYROID STIM HORMONE (HS) 0.517 uIU/ml (0.358-4.75)
--- NOTE | 2020-01-22 06:31 | NUR ---
PATIENT UP TO RESTROOM AT THIS TIME. NO DISTRESS NOTED. RN WILL CONT TO MONITOR
[2020-01-22 07:22] LABS: VITAMIN D, 25-HYDROXY 48.7 ng/mL (30-100)
--- NOTE | 2020-01-22 11:42 | NUR ---
Cardiology Physician Assistant in to talk to patient. Patient states lives at home with alone. There are no steps in the home. Physician: mary bowers Pharmacy: [facility] health services: none Patient's level of ADLs: MINIMAL ASSIST Patient has working utilities: all working DME: walker, home oxygen 2l/hs, nebulzier from [employer] Follow-up physician's appointment after d/c: will be made by hospitalist nurse director upon discharge Does patient want to access PORTAL?: no Discharge plan discussed with patient, she lives at home alone, she uses a walker for ambulation, indoendent in adls. she has home oxygen she uses 2l at hs, she states she will return home when discharged. case management iwll follow for any other needs. KIKA SILVERIO
--- NOTE | 2020-01-22 12:00 | NUR ---
PT INSTRUCTED ON USE OF FLUTTER VLAVE. PT DEMONSTRATED PROPER TECHNIQUE AND INSTRUCTED TO USE Q 1-2 HR W/A.
[2020-01-22 12:32] LABS: ABG BASE EXCESS -0.8 mmol/L (-2.0-2.0); ARTERIAL BLOOD GAS PH 7.273 (7.35-7.45)
[2020-01-23] VITALS (7 sets, daily range): BP systolic 145–172; BP diastolic 50–76
--- NOTE | 2020-01-23 01:14 | NUR ---
NOTIFIED OF BP 168/76 MANUALLY. DISCUSSED MEDICATIONS GIVEN/HOME MEDS. MONITOR FOR NOW AND IF BP STILL IS HIGH WITH NEXT VITALS CHECK, CALL
--- NOTE | 2020-01-23 06:03 | NUR ---
PT C/O NOT FEELING WELL. BP 177/75. MEDICATED W/SCHEDULED APRESOLINE. C/O FEELING NAUSEAOUS. MEDICATED W/IVP ZOFRAN. PT SITTING ON SIDE OF BED. CALL LIGHT IN REACH.
[2020-01-23 06:34] LABS: HEMATOCRIT 33.2 % (37.0-47.0); MEAN CELL VOLUME 98.5 fl (81.0-99.0); MEAN CORPUSCULAR HGB 28.5 pg (27.0-31.0); MEAN CORPUSCULAR HGB CONC 28.9 g/dl (33.0-37.0); MEAN PLATELET VOLUME 11.6 fl (9.6-12.3); NUCLEATED RED BLOOD CELL 0.1 % (0.0-0.0); PLATELET COUNT AUTOMATED 289 10*3/uL (130-400); RED BLOOD COUNT 3.37 10*6/uL (4.10-5.10); RED CELL DISTRI WIDTH 17.2 % (0-14.5); WHITE BLOOD COUNT 16.5 10*3/uL (4.8-10.8)
[2020-01-23 06:39] LABS: CREATININE 1.66 mg/dL (0.55-1.02); POTASSIUM 4.5 mmol/L (3.5-5.1)
[2020-01-23 07:03] LABS: BURR CELLS FEW; OVALOCYTES FEW; PLATELET SUFFICIENCY NORMAL (NORMAL); POLYCHROMASIA SLIGHT; TOTAL CELLS COUNTED 100 #CELLS
--- NOTE | 2020-01-23 09:00 | NUR ---
case management visits with patient, she states she will return home when discharged, case management will follow
[2020-01-23] MEDS ORDERED: CEFTRIAXONE1 GM IJ (15:26)
[2020-01-23] MEDS ORDERED: SOLU-MEDRO40 MG/1 ML IV (15:26)
[2020-01-23] MEDS ORDERED: PREMIERPRO RX500 M3 IV (15:26)
[2020-01-23] MEDS ORDERED: MUCUS RELIEF600 MG PO (15:26)
--- NOTE | 2020-01-23 19:47 | NUR ---
PT AWAKE IN BED. DENIES ANY NEEDS. NO CALL FROM [facility] FOR BED ASSIGNMENT. WILL MONITOR. CALL LIGHT IN REACH.
--- NOTE | 2020-01-23 23:31 | NUR ---
SPOKE TO NURSING BUSINESS ADMINISTRATION PROFESSOR AT [facility]. DISCUSSED PATIENT TRANSFER. STATES STILL NO BED AVAILABLE, BUT SHE ANTICIPATES POSSIBLE AVAILABILITY WITHIN THE NEXT HOUR. [facility] PHYSICIAN TO PHYSICIAN HAS ALREADY BEEN ESTABLISHED AND IS THE ACCEPTING PHYSICIAN. WILL CALL [facility] WHEN BED IS AVAILABLE.
[2020-01-24] VITALS: BP 166/60; BP 166/70
--- NOTE | 2020-01-24 00:10 | NUR ---
NOTIFIED OF ELEVATED BP 166/60 MANUALLY. DISCUSSED PLAN TO TRANSFER TO [facility]. DISCUSSED PO MEDICATIONS GIVEN AT 1957. NEW ORDER RECEIVED FOR IV LABETOLOL 10 MG X1 DOSE NOW.
--- NOTE | 2020-01-24 00:59 | NUR ---
IV LABETOLOL GIVEN SLOWLY PER ONE TIME ORDER NOW THAT MEDICATION PROFILED BY [facility]. PT REMAINS ASYMPTOMATIC WITH ELEVATED BP. WILL REEVALUATE EFFECTIVENESS OF MEDICATION.
--- NOTE | 2020-01-24 01:27 | NUR ---
SOCIAL WORK THERAPIST FROM [place] CALLED AND STATES THAT EMS WILL NEED TO STOP AT ED REGISTRATION FOR BED ASSIGNMENT. NURSE TO NURSE REPORT CALLED AT [phone]. SPOKE TO RN BILL ON 5TH FLOOR. WILL CALL BACK WHEN TRANSPORTATION SET UP AND PT IS ON WAY TO FACILITY.
[2020-01-24 01:45] VITALS: BP 145/73
--- NOTE | 2020-01-24 01:45 | NUR ---
EARLIER IV LABETOLOL EFFECTIVE. BP NOW 145/73 PER AUTO BP CUFF.
--- NOTE | 2020-01-24 02:06 | NUR ---
EMS HERE TO TRANSFER PT. THIS RN NOTIFIED [facility] OF PT'S DEPARTURE.
--- NOTE | 2020-01-24 02:11 | NUR ---
PT'S SON NOTIFIED OF DEPARTURE FROM FACILITY. AWARE OF TRANSFER TO [facility].
== END 2020-01-24 02:40 | disposition short-term general hospital (02) | DRG 177 ==
LOC: ED 14:02 → EDHOLD 16:21 → 4E 16:21 → EDHOLD 16:53 → 4E 01-22 06:39
PROVIDERS: Emergency Medicine; Hospitalist; Internal Medicine; Internal Medicine Critical Care Medicine; ADMIT Student in an Organized Health Care Education/Training Program; ATTEND Student in an Organized Health Care Education/Training Program
DX: J15.6 Pneumonia due to other Gram-negative bacteria (principal); N17.0 Acute kidney failure with tubular necrosis; E43 Unspecified severe protein-calorie malnutrition; J96.00 Acute respiratory failure, unspecified whether with hypoxia or hypercapnia; J44.0 Chronic obstructive pulmonary disease with (acute) lower respiratory infection; J44.1 Chronic obstructive pulmonary disease with (acute) exacerbation; I50.30 Unspecified diastolic (congestive) heart failure; J96.11 Chronic respiratory failure with hypoxia; I13.0 Hypertensive heart and chronic kidney disease with heart failure and stage 1 through stage 4 chronic kidney disease, or unspecified chronic kidney disease; J96.12 Chronic respiratory failure with hypercapnia; I48.91 Unspecified atrial fibrillation; N18.30 Chronic kidney disease, stage 3 unspecified; H35.30 Unspecified macular degeneration; E86.0 Dehydration; F17.210 Nicotine dependence, cigarettes, uncomplicated; E66.09 Other obesity due to excess calories; R73.9 Hyperglycemia, unspecified; D64.9 Anemia, unspecified; E83.39 Other disorders of phosphorus metabolism; Z68.31 Body mass index [BMI] 31.0-31.9, adult; Z88.1 Allergy status to other antibiotic agents; Z88.8 Allergy status to other drugs, medicaments and biological substances; Z68.33 Body mass index [BMI] 33.0-33.9, adult; Z82.49 Family history of ischemic heart disease and other diseases of the circulatory system; Z83.3 Family history of diabetes mellitus

== ENCOUNTER → 2020-02-14 | Outpatient (CLI) | payer MEDICARE, OTHER ==
[~2020-02-14] MED LIST changes: +BUMETANIDE0.5 MG PO; +CEFTRIAXONE1 GM IJ; +CIPROFLOXACIN H10 ML OPH; +DEEP SEA44 ML INH; +DORZOLAMIDE HYD10 ML OP; +LOPRESSOR50 M1 PO; +MUCUS RELIEF600 MG PO; +PANTOPRAZOLE SO40 MG PO; +PEPCID AC20 MG PO; +PREMIERPRO RX500 M3 IV; +SOLU-MEDRO40 MG/1 ML IV; +VENT7GM INH; +XARELTO15 M1 PO
== END | disposition home or self-care (01) ==
LOC: RAD 10:26
PROVIDERS: ATTEND Internal Medicine Critical Care Medicine
DX: J90 Pleural effusion, not elsewhere classified (principal); Z98.890 Other specified postprocedural states

== ENCOUNTER 2020-04-01 13:58 | Inpatient (IN) | payer MEDICARE, OTHER ==
[~2020-04-01] VITALS: Ht 157.5 cm; Wt 72.3 kg
[2020-04-01] VITALS (10 sets, daily range): BP systolic 134–204; BP diastolic 51–100
[~2020-04-01 13:58] MED LIST changes: -PEPCID AC20 MG PO
[2020-04-01 14:45] LABS: BASO # 0.1 10*3/uL (0.0-0.1); BASO % 0.8 % (0.0-1.0); EOS # 0.8 10*3/uL (0.0-0.4); EOS % 7.4 % (1.0-4.0); HEMATOCRIT 33.8 % (37.0-47.0); LYMPH # 0.9 10*3/uL (1.3-4.4); LYMPH % 8.4 % (27.0-41.0); MEAN CELL VOLUME 93.4 fl (81.0-99.0); MEAN CORPUSCULAR HGB CONC 27.8 g/dl (33.0-37.0); MEAN PLATELET VOLUME 11.3 fl (9.6-12.3); MONO # 0.8 10*3/uL (0.1-1.0); MONO % 7.2 % (3.0-9.0); NEUT # 7.9 10*3/uL (2.3-7.9); NEUT % 75.8 % (47.0-73.0); PLATELET COUNT AUTOMATED 259 10*3/uL (130-400); RED BLOOD COUNT 3.62 10*6/uL (4.10-5.10); RED CELL DISTRI WIDTH 16.6 % (0-14.5); WHITE BLOOD COUNT 10.4 10*3/uL (4.8-10.8)
[2020-04-01 14:55] LABS: ACT PARTIAL THROMBO TIME 30.5 SECONDS (20.0-32.1); INTERNATIONAL NORM RATIO 1.2 (2.0-3.5)
[2020-04-01 15:02] LABS: CREATININE 1.78 mg/dL (0.55-1.02); POTASSIUM 3.6 mmol/L (3.5-5.1); TOTAL PROTEIN 7.2 gm/dL (6.4-8.2); TROPONIN I 0.038 ng/ml (<0.045)
[2020-04-02] VITALS (11 sets, daily range): BP systolic 144–220; BP diastolic 43–92
[2020-04-02 06:14] LABS: BASO # 0.1 10*3/uL (0.0-0.1); BASO % 0.7 % (0.0-1.0); EOS # 0.7 10*3/uL (0.0-0.4); EOS % 7.5 % (1.0-4.0); HEMATOCRIT 31.6 % (37.0-47.0); LYMPH # 0.9 10*3/uL (1.3-4.4); LYMPH % 9.9 % (27.0-41.0); MEAN CELL VOLUME 92.1 fl (81.0-99.0); MEAN CORPUSCULAR HGB 25.9 pg (27.0-31.0); MEAN CORPUSCULAR HGB CONC 28.2 g/dl (33.0-37.0); MEAN PLATELET VOLUME 11.8 fl (9.6-12.3); MONO # 0.7 10*3/uL (0.1-1.0); NEUT # 7.1 10*3/uL (2.3-7.9); NEUT % 74.5 % (47.0-73.0); PLATELET COUNT AUTOMATED 239 10*3/uL (130-400); RED BLOOD COUNT 3.43 10*6/uL (4.10-5.10); RED CELL DISTRI WIDTH 16.6 % (0-14.5); WHITE BLOOD COUNT 9.5 10*3/uL (4.8-10.8)
[2020-04-02 06:42] LABS: POTASSIUM 3.6 mmol/L (3.5-5.1)
[2020-04-02 07:06] LABS: ALBUMIN 2.9 gm/dl (3.1-4.5); CREATININE 1.69 mg/dL (0.55-1.02); TOTAL PROTEIN 6.9 gm/dL (6.4-8.2)
[2020-04-02 08:14] LABS: VITAMIN D, 25-HYDROXY 35.7 ng/mL (30-100)
[2020-04-02 20:56] LABS: BILIRUBIN Negative (Negative); BLOOD Negative (Negative); CLARITY Clear (Clear); COLOR Yellow (Yellow); GLUCOSE Negative (Negative); KETONE Negative (Negative); LEUKO ESTERASE Negative (Negative); NITRITE Negative (Negative)
[2020-04-02 21:02] LABS: BACTERIA 2+; EPITHELIAL CELLS 0-2; RBC 0-2 rbc/hpf (0-2); WBC 0-2 wbc/hpf (0-5)
[2020-04-03] VITALS: BP 188/68
[2020-04-03 06:29] LABS: BASO % 0.4 % (0.0-1.0); EOS # 0.7 10*3/uL (0.0-0.4); EOS % 6.6 % (1.0-4.0); HEMATOCRIT 30.7 % (37.0-47.0); LYMPH # 0.8 10*3/uL (1.3-4.4); LYMPH % 7.7 % (27.0-41.0); MEAN CELL VOLUME 91.6 fl (81.0-99.0); MEAN CORPUSCULAR HGB 25.7 pg (27.0-31.0); MEAN PLATELET VOLUME 11.8 fl (9.6-12.3); MONO # 0.8 10*3/uL (0.1-1.0); MONO % 8.6 % (3.0-9.0); NEUT # 7.5 10*3/uL (2.3-7.9); NEUT % 76.2 % (47.0-73.0); PLATELET COUNT AUTOMATED 238 10*3/uL (130-400); RED BLOOD COUNT 3.35 10*6/uL (4.10-5.10); RED CELL DISTRI WIDTH 16.6 % (0-14.5); WHITE BLOOD COUNT 9.8 10*3/uL (4.8-10.8)
[2020-04-03 06:31] LABS: ALBUMIN 2.6 gm/dl (3.1-4.5); CREATININE 1.57 mg/dL (0.55-1.02); POTASSIUM 3.6 mmol/L (3.5-5.1); TOTAL PROTEIN 6.2 gm/dL (6.4-8.2)
[2020-04-03 08:00] VITALS: BP 162/60
[2020-04-03] MEDS ORDERED: PEPCID AC20 MG PO (09:51)
[2020-04-03 12:00] VITALS: BP 116/71
[2020-04-03 16:00] VITALS: BP 182/68; BP 209/63
[2020-04-03 20:00] VITALS: BP 154/65
[2020-04-04] VITALS: BP 180/84
[2020-04-04 06:21] LABS: BASO # 0.1 10*3/uL (0.0-0.1); BASO % 0.5 % (0.0-1.0); EOS # 0.7 10*3/uL (0.0-0.4); EOS % 6.5 % (1.0-4.0); HEMATOCRIT 31.6 % (37.0-47.0); LYMPH # 0.7 10*3/uL (1.3-4.4); LYMPH % 6.9 % (27.0-41.0); MEAN CELL VOLUME 90.3 fl (81.0-99.0); MEAN CORPUSCULAR HGB 26.3 pg (27.0-31.0); MEAN CORPUSCULAR HGB CONC 29.1 g/dl (33.0-37.0); MONO # 0.8 10*3/uL (0.1-1.0); MONO % 7.6 % (3.0-9.0); NEUT # 8.1 10*3/uL (2.3-7.9); NEUT % 78.1 % (47.0-73.0); PLATELET COUNT AUTOMATED 251 10*3/uL (130-400); RED CELL DISTRI WIDTH 16.8 % (0-14.5); WHITE BLOOD COUNT 10.3 10*3/uL (4.8-10.8)
[2020-04-04 06:31] LABS: CREATININE 1.34 mg/dL (0.55-1.02); POTASSIUM 3.8 mmol/L (3.5-5.1)
[2020-04-04 08:00] VITALS: BP 186/70
[2020-04-04 10:29] VITALS: BP 144/44
[2020-04-04 12:00] VITALS: BP 100/46
[2020-04-04 16:00] VITALS: BP 145/51
[2020-04-04 20:00] VITALS: BP 177/81
[2020-04-05] VITALS: BP 161/72
[2020-04-05 06:29] LABS: BASO # 0.1 10*3/uL (0.0-0.1); BASO % 0.7 % (0.0-1.0); EOS % 9.3 % (1.0-4.0); HEMATOCRIT 35.9 % (37.0-47.0); LYMPH # 1.2 10*3/uL (1.3-4.4); LYMPH % 10.8 % (27.0-41.0); MEAN CELL VOLUME 89.5 fl (81.0-99.0); MEAN CORPUSCULAR HGB 25.4 pg (27.0-31.0); MEAN CORPUSCULAR HGB CONC 28.4 g/dl (33.0-37.0); MEAN PLATELET VOLUME 12.1 fl (9.6-12.3); MONO # 0.8 10*3/uL (0.1-1.0); NEUT # 7.7 10*3/uL (2.3-7.9); NEUT % 71.7 % (47.0-73.0); PLATELET COUNT AUTOMATED 307 10*3/uL (130-400); RED BLOOD COUNT 4.01 10*6/uL (4.10-5.10); RED CELL DISTRI WIDTH 16.8 % (0-14.5); WHITE BLOOD COUNT 10.7 10*3/uL (4.8-10.8)
[2020-04-05 06:43] LABS: POTASSIUM 3.6 mmol/L (3.5-5.1)
[2020-04-05 06:57] LABS: CREATININE 1.47 mg/dL (0.55-1.02); DIGOXIN 1.32 ng/ml (0.8-2.0)
[2020-04-05 08:00] VITALS: BP 144/72
[2020-04-05 12:00] VITALS: BP 156/70
[2020-04-05 16:00] VITALS: BP 146/68
[2020-04-05] MEDS ORDERED: HYDRALAZINE HYD50 MG PO (16:59)
[2020-04-05] MEDS ORDERED: LOPRESSOR25 MG PO (16:59)
[2020-04-05] MEDS ORDERED: AMLODIPINE BESYL5 MG PO (16:59)
[2020-04-05] MEDS ORDERED: XARE15TA PO (16:59)
== END 2020-04-05 18:00 | disposition home health service (06) | DRG 918 ==
LOC: ED 13:58 → EDHOLD 18:56 → 5E 04-02 19:03
PROVIDERS: Emergency Medicine; Hospitalist; Internal Medicine; Internal Medicine Cardiovascular Disease; ADMIT Student in an Organized Health Care Education/Training Program; ATTEND Student in an Organized Health Care Education/Training Program
DX: T46.0X4A Poisoning by cardiac-stimulant glycosides and drugs of similar action, undetermined, initial encounter (principal); I16.1 Hypertensive emergency; E44.0 Moderate protein-calorie malnutrition; I50.32 Chronic diastolic (congestive) heart failure; I48.19 Other persistent atrial fibrillation; I13.0 Hypertensive heart and chronic kidney disease with heart failure and stage 1 through stage 4 chronic kidney disease, or unspecified chronic kidney disease; E87.1 Hypo-osmolality and hyponatremia; D68.59 Other primary thrombophilia; J96.11 Chronic respiratory failure with hypoxia; N18.30 Chronic kidney disease, stage 3 unspecified; Z20.822 Contact with and (suspected) exposure to COVID-19; I48.0 Paroxysmal atrial fibrillation; J44.9 Chronic obstructive pulmonary disease, unspecified; I44.0 Atrioventricular block, first degree; E66.9 Obesity, unspecified; R73.9 Hyperglycemia, unspecified; E83.41 Hypermagnesemia; D64.9 Anemia, unspecified; Z80.42 Family history of malignant neoplasm of prostate; Z68.28 Body mass index [BMI] 28.0-28.9, adult; Z87.891 Personal history of nicotine dependence; Z88.8 Allergy status to other drugs, medicaments and biological substances; Z88.3 Allergy status to other anti-infective agents; Z91.013 Allergy to seafood; Z82.49 Family history of ischemic heart disease and other diseases of the circulatory system; Z83.3 Family history of diabetes mellitus; Z79.899 Other long term (current) drug therapy

== ENCOUNTER 2020-05-23 18:09 | Inpatient (IN) | payer MEDICARE, OTHER ==
[~2020-05-23] VITALS: Ht 162.5 cm; Wt 70.5 kg
[2020-05-23] VITALS (9 sets, daily range): BP systolic 111–145; BP diastolic 37–116
[~2020-05-23 18:09] MED LIST changes: +PEPCID AC20 MG PO
[2020-05-23 19:07] LABS: BASO # 0.1 10*3/uL (0.0-0.1); BASO % 0.9 % (0.0-1.0); EOS # 0.5 10*3/uL (0.0-0.4); EOS % 5.5 % (1.0-4.0); HEMATOCRIT 28.7 % (37.0-47.0); LYMPH % 11.3 % (27.0-41.0); MEAN CELL VOLUME 86.4 fl (81.0-99.0); MEAN CORPUSCULAR HGB 24.4 pg (27.0-31.0); MEAN CORPUSCULAR HGB CONC 28.2 g/dl (33.0-37.0); MEAN PLATELET VOLUME 10.8 fl (9.6-12.3); MONO # 0.9 10*3/uL (0.1-1.0); MONO % 9.5 % (3.0-9.0); NEUT # 6.5 10*3/uL (2.3-7.9); PLATELET COUNT AUTOMATED 324 10*3/uL (130-400); RED BLOOD COUNT 3.32 10*6/uL (4.10-5.10); RED CELL DISTRI WIDTH 18.4 % (0-14.5)
[2020-05-23 19:18] LABS: ACT PARTIAL THROMBO TIME 38.4 SECONDS (20.0-32.1); INTERNATIONAL NORM RATIO 1.5 (2.0-3.5)
[2020-05-23 19:28] LABS: ALBUMIN 3.3 gm/dl (3.1-4.5); ALKALINE PHOSPHATASE 146 U/L (45-117); BUN 36 mg/dl (7-24); CHLORIDE 104 mmol/L (98-107); CREATININE 2.03 mg/dL (0.55-1.02); POTASSIUM 3.3 mmol/L (3.5-5.1); SGOT/AST 7 IU/L (3-35); SGPT/ALT 9 U/L (12-78); SODIUM 136 mmol/L (136-145); TOTAL PROTEIN 8.2 gm/dL (6.4-8.2)
[2020-05-23 19:51] LABS: TROPONIN I < 0.015 ng/ml (<0.045)
[2020-05-23 21:00] LABS: BILIRUBIN Negative (Negative); BLOOD Negative (Negative); CLARITY Clear (Clear); COLOR Yellow (Yellow); GLUCOSE Negative (Negative); KETONE Negative (Negative); LEUKO ESTERASE Negative (Negative); NITRITE Negative (Negative); UROBILINOGEN 0.2 E.U./dl (0.0-1.0)
[2020-05-23 21:11] LABS: BACTERIA TRACE
[2020-05-24] VITALS (31 sets, daily range): BP systolic 99–143; BP diastolic 39–77
[2020-05-24] MEDS ORDERED: ALLERGY RELIEF1 EAC3 PO (00:38)
[2020-05-24] MEDS ORDERED: VITAMIN D350 MCG PO (00:39)
[2020-05-24] MEDS ORDERED: ALLOPURINOL100 MG PO (00:39)
[2020-05-24] MEDS ORDERED: LATANOPROST2.5 ML OS (00:44)
[2020-05-24 06:28] LABS: HEMATOCRIT 26.7 % (37.0-47.0); MEAN PLATELET VOLUME 12.4 fl (9.6-12.3); PLATELET COUNT AUTOMATED 294 10*3/uL (130-400); RED CELL DISTRI WIDTH 18.9 % (0-14.5); WHITE BLOOD COUNT 8.1 10*3/uL (4.8-10.8)
[2020-05-24 06:55] LABS: POTASSIUM 3.8 mmol/L (3.5-5.1); TOTAL PROTEIN 7.9 gm/dL (6.4-8.2)
[2020-05-24 07:16] LABS: ALBUMIN 3.1 gm/dl (3.1-4.5); CREATININE 2.14 mg/dL (0.55-1.02)
[2020-05-24 08:18] LABS: BURR CELLS FEW; OVALOCYTES FEW; PLATELET SUFFICIENCY NORMAL (NORMAL); POLYCHROMASIA SLIGHT; TARGET CELLS FEW; TOTAL CELLS COUNTED 100 #CELLS; TOXIC GRANULATION SLIGHT
[2020-05-24 08:19] LABS: SCHISTOCYTES FEW
[2020-05-24] MEDS ORDERED: BETIMOL5 M1 OS (17:48)
[2020-05-24] MEDS ORDERED: GAVILAX17 GM PO (17:51)
[2020-05-25] VITALS (8 sets, daily range): BP systolic 94–132; BP diastolic 47–69
[2020-05-25 05:34] LABS: ABG BASE EXCESS -3.3 mmol/L (-2.0-2.0); ARTERIAL BLOOD GAS PH 7.247 (7.35-7.45)
[2020-05-25 06:32] LABS: HEMATOCRIT 26.7 % (37.0-47.0); MEAN CORPUSCULAR HGB 24.3 pg (27.0-31.0); MEAN CORPUSCULAR HGB CONC 27.3 g/dl (33.0-37.0); MEAN PLATELET VOLUME 11.7 fl (9.6-12.3); NUCLEATED RED BLOOD CELL 0.2 % (0.0-0.0); RED CELL DISTRI WIDTH 18.7 % (0-14.5); WHITE BLOOD COUNT 18.6 10*3/uL (4.8-10.8)
[2020-05-25 06:34] LABS: ALBUMIN 3.4 gm/dl (3.1-4.5); CREATININE 2.8 mg/dL (0.55-1.02); POTASSIUM 4.2 mmol/L (3.5-5.1); TOTAL PROTEIN 8.1 gm/dL (6.4-8.2)
[2020-05-25 06:35] LABS: PLATELET COUNT AUTOMATED 408 10*3/uL (130-400)
[2020-05-25 07:49] LABS: PLATELET SUFFICIENCY HIGH (NORMAL); POLYCHROMASIA SLIGHT; TOTAL CELLS COUNTED 100 #CELLS
[2020-05-26] VITALS: BP 85/56
[2020-05-26 05:59] LABS: HEMATOCRIT 26.3 % (37.0-47.0); MEAN CELL VOLUME 90.7 fl (81.0-99.0); MEAN CORPUSCULAR HGB 24.8 pg (27.0-31.0); MEAN CORPUSCULAR HGB CONC 27.4 g/dl (33.0-37.0); MEAN PLATELET VOLUME 11.1 fl (9.6-12.3); NUCLEATED RED BLOOD CELL 0.2 10*3/uL (0.0-0.0); NUCLEATED RED BLOOD CELL 1.2 % (0.0-0.0); PLATELET COUNT AUTOMATED 403 10*3/uL (130-400); RED CELL DISTRI WIDTH 18.8 % (0-14.5); WHITE BLOOD COUNT 18.3 10*3/uL (4.8-10.8)
[2020-05-26 06:00] LABS: CREATININE 3.74 mg/dL (0.55-1.02)
[2020-05-26 06:25] LABS: POTASSIUM 5.5 mmol/L (3.5-5.1)
[2020-05-26 06:53] LABS: PLATELET SUFFICIENCY HIGH (NORMAL); POLYCHROMASIA SLIGHT; SCHISTOCYTES FEW; TOTAL CELLS COUNTED 100 #CELLS
[2020-05-26 08:00] VITALS: BP 106/46
== END 2020-05-26 11:34 | DRG 291 ==
LOC: ED 18:09 → 4E 22:29 → EDHOLD 22:29 → 4E 05-24 11:27
PROVIDERS: Emergency Medicine; Family Medicine; Internal Medicine; ADMIT Internal Medicine; ATTEND Internal Medicine
PROC: 5A09357 Assistance with Respiratory Ventilation, Less than 24 Consecutive Hours, Continuous Positive Airway Pressure (ICD-10-PCS; principal; 2020-05-23)
PROC: 5A09357 Assistance with Respiratory Ventilation, Less than 24 Consecutive Hours, Continuous Positive Airway Pressure (ICD-10-PCS; 2020-05-25)
PROC: 5A09357 Assistance with Respiratory Ventilation, Less than 24 Consecutive Hours, Continuous Positive Airway Pressure (ICD-10-PCS; 2020-05-26)
DX: I13.0 Hypertensive heart and chronic kidney disease with heart failure and stage 1 through stage 4 chronic kidney disease, or unspecified chronic kidney disease (principal); J96.21 Acute and chronic respiratory failure with hypoxia; N17.0 Acute kidney failure with tubular necrosis; I50.23 Acute on chronic systolic (congestive) heart failure; J96.22 Acute and chronic respiratory failure with hypercapnia; J44.1 Chronic obstructive pulmonary disease with (acute) exacerbation; R65.10 Systemic inflammatory response syndrome (SIRS) of non-infectious origin without acute organ dysfunction; E44.0 Moderate protein-calorie malnutrition; I44.7 Left bundle-branch block, unspecified; R80.9 Proteinuria, unspecified; N18.32 Chronic kidney disease, stage 3b; D64.9 Anemia, unspecified; Z88.8 Allergy status to other drugs, medicaments and biological substances; I48.91 Unspecified atrial fibrillation; E66.9 Obesity, unspecified; R73.9 Hyperglycemia, unspecified; E55.9 Vitamin D deficiency, unspecified; F17.210 Nicotine dependence, cigarettes, uncomplicated; E66.3 Overweight; R73.03 Prediabetes; E87.6 Hypokalemia; Z66 Do not resuscitate; Z51.5 Encounter for palliative care; R53.81 Other malaise; Z68.26 Body mass index [BMI] 26.0-26.9, adult; Z88.1 Allergy status to other antibiotic agents; Z91.013 Allergy to seafood; Z82.49 Family history of ischemic heart disease and other diseases of the circulatory system; Z83.3 Family history of diabetes mellitus